=== PATIENT | male | born 1985 | race Caucasian/White ===

== ENCOUNTER 2022-11-24 11:00 | Outpatient (OUT) | payer BC, SELFPAY ==
[2022-11-24 12:08] LABS: Basophils Percent Auto 0.4 % (0.2-2.0); Eosinophils Absolute Auto 0.3 10^3/uL (0.0-0.7); Eosinophils Percent Auto 3.1 % (0.9-7.0); Hematocrit 42.9 % (42.0-54.0); Hemoglobin 14.7 g/dL (14.0-18.0); Immature Granulocytes Abs Auto 0.06 10^3/uL (0.00-0.03); Immature Granulocytes Pct Auto 0.7 % (0.0-0.5); Lymphocytes Absolute Auto 2.8 10^3/uL (1.2-3.8); Lymphocytes Percent Auto 32.8 % (20.5-60.0); Mean Corpuscular HGB Conc 34.3 g/dL (29.9-35.2); Mean Corpuscular Hemoglobin 32.2 pg (25.9-34.0); Mean Corpuscular Volume 93.9 fL (80.0-94.0); Mean Platelet Volume 11.7 fL (9.5-13.5); Monocytes Absolute Auto 0.7 10^3/uL (0.3-0.8); Monocytes Percent Auto 8.3 % (1.7-12.0); Neutrophils Absolute Auto 4.7 10^3/uL (1.4-6.5); Neutrophils Percent Auto 54.7 % (43.0-75.0); Platelet Count 283 10^3/uL (150-450); Red Blood Count 4.57 10^6/uL (4.70-6.10); White Blood Count 8.5 10^3/uL (4.0-11.0)
[2022-11-24 17:58] LABS: Alanine Aminotransferase 78 U/L (16-63); Albumin Globulin Ratio 1.2; Alkaline Phosphatase 40 U/L (46-116); Anion Gap 13.2; Aspartate Amino Transferase 46 U/L (15-37); BUN Creatinine Ratio 20.9; Bilirubin Total 0.7 mg/dL (0.2-1.0); Carbon Dioxide 28.8 mmol/L (21.0-32.0); Chloride 103 mmol/L (98-107); Chol HDL Ratio 4.8; Cholesterol 176 mg/dL (<=200); Estimated GFR (African America >60 (>=60); Estimated GFR (Non-African Ame >60 (>=60); Globulin 3.3 g/dL; Glucose 89 mg/dL (74-106); HDL Cholesterol 37 mg/dL (40-60); Sodium 140 mmol/L (136-145); Total Protein 7.3 g/dL (6.4-8.2); Triglycerides 178 mg/dL (<=150); VLDL CHOLESTEROL 35.6 mg/dL
[2022-11-24 18:00] LABS: Prostate Specific Antigen Scrn 0.42 ng/mL (<=4.00)
[2022-11-25 01:56] LABS: Estimated Average Glucose 111 mg/dL; Glycohemoglobin A1C 5.5 % (4.5-6.2)
== END 2022-11-24 11:01 | disposition home or self-care (01) ==
LOC: LAB 11:00
PROVIDERS: Visit Provider Nurse Practitioner
DX: Z00.00 Encounter for general adult medical examination without abnormal findings (principal); Z12.5 Encounter for screening for malignant neoplasm of prostate; Z23 Encounter for immunization
CPT/HCPCS: 36415; 80053; 80061; 83036; 84443; 85025; 90674; G0008; G0103

== ENCOUNTER 2023-12-10 11:50 | Outpatient (OUT) | payer BC, SELFPAY ==
[2023-12-10 12:55] LABS: Estimated Average Glucose 114 mg/dL; Glycohemoglobin A1C 5.6 % (4.5-6.2)
[2023-12-10 13:03] LABS: Alanine Aminotransferase 73 U/L (16-63); Albumin Globulin Ratio 1.1; Albumin Level 3.7 g/dL (3.4-5.0); Alkaline Phosphatase 43 U/L (46-116); Anion Gap 12.3; Aspartate Amino Transferase 34 U/L (15-37); BUN Creatinine Ratio 23.3; Bilirubin Total 0.8 mg/dL (0.2-1.0); Calcium 9.1 mg/dL (8.5-10.1); Chloride 104 mmol/L (98-107); Chol HDL Ratio 4.9; Cholesterol 201 mg/dL (<=200); Estimated GFR (African America >60 (>=60 mL/min/1.73m^2); Estimated GFR (Non-African Ame >60 (>=60 mL/min/1.73m^2); Globulin 3.4 g/dL; Glucose 95 mg/dL (74-106); HDL Cholesterol 41 mg/dL (40-60); Potassium 4.3 mmol/L (3.5-5.1); Sodium 142 mmol/L (136-145); Thyroid Stimulating Hormone 2.995 uIU/mL (0.358-3.740); Total Protein 7.1 g/dL (6.4-8.2); Triglycerides 183 mg/dL (<=150); VLDL CHOLESTEROL 36.6 mg/dL
[2023-12-10 13:46] LABS: Basophils Absolute Auto 0.1 10^3/uL (0.0-0.1); Basophils Percent Auto 0.6 % (0.2-2.0); Eosinophils Absolute Auto 0.2 10^3/uL (0.0-0.7); Hematocrit 46.6 % (42.0-54.0); Hemoglobin 14.9 g/dL (14.0-18.0); Immature Granulocytes Abs Auto 0.06 10^3/uL (0.00-0.03); Immature Granulocytes Pct Auto 0.7 % (0.0-0.5); Lymphocytes Absolute Auto 3.4 10^3/uL (1.2-3.8); Mean Corpuscular Hemoglobin 30.7 pg (25.9-34.0); Mean Corpuscular Volume 96.1 fL (80.0-94.0); Mean Platelet Volume 11.5 fL (9.5-13.5); Monocytes Absolute Auto 0.7 10^3/uL (0.3-0.8); Monocytes Percent Auto 7.8 % (1.7-12.0); Neutrophils Absolute Auto 4.4 10^3/uL (1.4-6.5); Neutrophils Percent Auto 49.9 % (43.0-75.0); Platelet Count 252 10^3/uL (150-450); Red Blood Count 4.85 10^6/uL (4.70-6.10); Red Cell Distribution Width 13.3 % (11.0-15.0); White Blood Count 8.7 10^3/uL (4.0-11.0)
[2023-12-10 15:57] LABS: Prostate Specific Antigen Scrn 0.56 ng/mL (<=4.00)
== END 2023-12-10 11:51 | disposition home or self-care (01) ==
LOC: LAB 11:50
PROVIDERS: PCP Nurse Practitioner; Visit Provider Nurse Practitioner Family
DX: Z00.00 Encounter for general adult medical examination without abnormal findings (principal); Z23 Encounter for immunization
CPT/HCPCS: 80053; 80061; 83036; 84443; 85025; 90674; G0103

== ENCOUNTER 2024-04-02 18:29 | Emergency (ER) | payer BC, SELFPAY ==
[2024-04-02 18:30] VITALS: BP 154/121; PULSE 93; O2SAT 97; BMI 48.1
--- NOTE | 2024-04-02 18:34 | PC.NURSE ---
uncontrolled bleeding to LLE after scratching a varicose vein
--- NOTE | 2024-04-02 18:39 | ED.EXTPRO1 ---
HPI - Extremity Problem General Chief complaint: Extremity Problem, Nontraumatic Time Seen by Provider: 04/02/24 18:33 Source: patient Mode of arrival: ambulance History of Present Illness HPI Narrative: The patient is coming to the ER after he was picking his left leg and all of a sudden started bleeding, the bleeding was a lot that the patient was brought to us by the EMS, he does not take any blood thinner he denies any concerns Upon arrival the patient bleeding is controlled by the EMS holding pressure and there is a tourniquet was applied just few minutes before arrival Related Data Allergies Allergy/AdvReac Type Severity Reaction Status Date / Time oxymetazoline (From Afrin Allergy Severe Swelling Verified 04/02/24 18:30 (oxymetazoline)) of Lip/Tongue/Throat Review of Systems ROS Status of ROS 10 or more systems reviewed and unremarkable except as noted in history and below Exam Narrative Exam Narrative: Nurses notes and vital signs reviewed and patient is not hypoxic. Left lower extremity The patient have a small almost 1.5 mm ulcer-like area where he apparently was picking himself There is no laceration that is obvious other than that, patient have a tourniquet applied General: Well-appearing and in no apparent distress. Skin: Warm, dry, no pallor noted. No rash. Head: Normocephalic, atraumatic. Neck: Supple, non-tender. Eye: Pupils are equal, round and EOMI. No scleral icterus. Ears, Nose, Mouth, and Throat: TM are clear, no nasal mucosal hypertrophy. Oral mucosa is moist, no posterior oropharynx erythema, uvula is mid-line Cardiovascular: Regular Rate and Rhythm without murmur, gallop or rub. Respiratory: No accessory muscle use or respiratory distress. Lungs are clear to auscultation, no wheezing, rales or rhonchi Chest Wall: no tenderness Back: No midline thoracic or lumbar vertebral tenderness. No CVA tenderness GI: Abdomen is soft, non-distended. Normal bowel sounds. No masses appreciated. Constitutional Vital Signs, click to edit/add: Last Vital Signs Temp 98.1 F 04/02/24 18:40 Pulse 93 H 04/02/24 18:30 Resp 20 04/02/24 18:30 BP 170/67 H 04/02/24 18:40 Pulse Ox 97 04/02/24 18:30 O2 Del Method Room Air 04/02/24 18:30 Course Vital Signs Vital signs: Vital Signs Pulse Rate 93 H 04/02/24 18:30 Respiratory Rate 20 04/02/24 18:30 Blood Pressure 154/121 H 04/02/24 18:30 Pulse Oximetry 97 04/02/24 18:30 Oxygen Delivery Method Room Air 04/02/24 18:30 Temperature 98.1 F 04/02/24 18:40 Pulse Rate 93 H 04/02/24 18:30 Respiratory Rate 20 04/02/24 18:30 Blood Pressure 170/67 H 04/02/24 18:40 Pulse Oximetry 97 04/02/24 18:30 Oxygen Delivery Method Room Air 04/02/24 18:30 MDM - Extremity (Nontraumatic) MDM Narrative Medical decision making narrative: The area was infiltrated with 2 cc of 1% lidocaine with epinephrine after which I applied 2 stitches that are 3-0 Ethilon The bleeding was controlled and the compressive dressing was applied The patient have a good pulse anterior tibial on both feet The patient was instructed about keeping the compression dressing for the next 48 hours The patient will keep his leg elevated when possible and and the stitches need to be removed after 5 to 7 days The patient was offered tetanus booster but he mentioned he does not want to take it and right now since it not wound or laceration I am okay with him getting it from his primary care office The patient is to follow up with primary care physician in next 2-3 days or to return to the emergency department should any of the signs or symptoms worsen or new symptoms develop. The patient agrees with the following Diagnosis and Treatment plan and the patient will be discharged home. Discharge Plan Discharge Chief Complaint: Extremity Problem, Nontraumatic Clinical Impression: Bleeding from varicose vein Time of Disposition Decision: 18:42 Print Language: Gambian Referrals: GENESIS ZABALA [Primary Care Provider] - 1 week
--- OUTSIDE RECORDS SUMMARY | 2024-04-02 18:39 | XMS_ITS | CCD ---
Author Organization [facility] Care Team Providers Care Swimming Coach Name Role Phone WASHINGTON BRANCH Admitting Unavailable WASHINGTON BRANCH Attending Unavailable DR CHANDLER OCONNELL Primary Care Unavailable WASHINGTON BRANCH Consulting Unavailable Leilani Wagner Unavailable LYNNETTE Camarena Attending Provider LYNNETTE Doyle Primary Care Provider [phone] TOM NORTON Attending Unavailable APLINGTOM Attending Unavailable APLINGTOM Attending Unavailable Vj CORPORATE DIRECTOR OF HUMAN RESOURCES-Suzan HERMAN Primary Care Provider VJ, SUZAN L Referring Unavailable VJ, SUZAN L Primary Care Unavailable VJ, SUZAN L Referring Unavailable VJ, SUZAN L Primary Care Unavailable VJ, SUZAN Valladares Referring Unavailable VJ, SUZAN L Primary Care Unavailable VJ, SUZAN L Referring Unavailable VJ, SUZAN L Primary Care Unavailable VJ, SUZAN L Referring Unavailable VJ, SUZAN L Primary Care Unavailable Jomar Woodard Attending Unavailab Jomar Talbert Admitting Unavailab Lore Mccain Primary Care Unavailable Vj, VOLLEYBALL ASSISTANT COACH Suzan Valladares Attending Unavailable Vj, VOLLEYBALL ASSISTANT COACH Suzan Valladares Attending Unavailable Vj, VOLLEYBALL ASSISTANT COACH Suzan Valladares Attending Unavailable Vj, VOLLEYBALL ASSISTANT COACH Suzan Valladares Attending Unavailable Allergies Allergy Classification Reported Allergen(s) Allergy Type Date of Onset Reaction(s) Facility (1 source) No Known Medication Allergies; Translations: [No Known Medication Allergies] Propensity to adverse reactions (disorder) [facility] Repository Medications Current Medications Medication Drug Class(es) Dates Sig (Normalized) Sig (Original) Acetaminophen (1 source) Tylenol Active acetaminophen 500 mg / diphenhydrAMINE hydrochloride 25 mg oral tablet (1 source) Histamine-1 Receptor Antagonist take 2 tablets by mouth once daily as needed for sleep diphenhydrAMINE-acet aminophen (TYLENOL PM) 25-500 mg tablet Indications: insomnia Take 2 tablets by mouth nightly as needed for sleep Indications: difficulty sleeping. Active [id number] 200 actuat albuterol 0.09 mg/actuat metered dose inhaler (1 source) beta2-Adrenergic Agonist Start: 04-14-2022 take 2 puff(s) by inhalation four times daily as needed Albuterol Sulfate HFA 108 (90 Base) MCG/ACT 2 puffs Inhalation 4 times a day prn Mar, Active ascorbic acid 1000 mg oral tablet (1 source) Vitamin C take 2 tablets by mouth in the morning ascorbic acid, vitamin C, (VITAMIN C) 1000 mg tablet Take 2 tablets (2,000 mg total) by mouth in the morning. Active azithromycin 250 mg oral tablet (1 source) Macrolide Antimicrobial Start: 04-14-2022 Azithromycin 250 MG 2 tablet on the first day, then 1 tablet daily for 4 days Orally Once a day for 5 days Mar, Active cholecalciferol, vitamin D3, (D3-2000 ORAL) (1 source) take 1 tablet by mouth in the morning cholecalciferol, vitamin D3, (D3-2000 ORAL) Take 1 tablet by mouth in the morning. Active flaxseed oiL oil (1 source) flaxseed oiL oil 1,000 mg by miscellaneous route in the morning. Active magnesium oxide 500 mg oral tablet (1 source) Start: 07-25-2022 take 1 tablet by mouth in the morning magnesium oxide 500 mg tablet Take 1 tablet (500 mg total) by mouth in the morning. 07/25/2022 Active melatonin 10 mg disintegrating oral tablet (1 source) melatonin 10 mg tablet,disintegratin g Dissolve 10 mg on tongue nightly as needed. Active naproxen sodium 220 mg oral tablet (1 source) Nonsteroidal Anti-inflammatory Drug take 1 tablet by mouth every twelve hours as needed for pain naproxen sodium (ALEVE) 220 mg tablet Take 1 tablet (220 mg total) by mouth every 12 (twelve) hours as needed for pain. Active omega 5-klo-prt-fish oil 300-1,000 mg capsule (1 source) take 300-1000 mg by mouth in the morning omega 0-hex-nog-fish oil 300-1,000 mg capsule Take 1 capsule by mouth in the morning. Active omeprazole 40 mg delayed release oral capsule (2 sources) Proton Pump Inhibitor Start: 08-25-2022 take 1 capsule by mouth once daily omeprazole (PriLOSEC) 40 mg capsule Indications: Gastroesophageal reflux disease, unspecified whether esophagitis present TAKE 1 CAPSULE BY MOUTH EVERY DAY 90 capsule 3 08/25/2022 Active Omeprazole 40 MG Oral for 90 Days Active predniSONE 20 mg oral tablet (1 source) Start: 04-14-2022 take 1 tablet by mouth every twelve hours predniSONE 20 MG 1 tablet Orally 2 times a day for 5 day(s) Mar, Active Problems Active Problems Problem Classification Problem Date Documented Da te Episodic/Chronic Chronic obstructive pulmonary disease and bronchiectasis (1 source) Bronchitis, not specified as acute or chronic Episodic Esophageal disorders (1 source) Gastroesophageal reflux disease without esophagitis; Translations: [Gastro-esophageal reflux disease without esophagitis] Chronic Other connective tissue disease (1 source) Pain in right lower leg; Translations: [Pain in right lower leg] Onset: 4 Episodic Other gastrointestinal disorders (1 source) Irritable bowel syndrome characterized by constipation; Translations: [Irritable bowel syndrome with constipation] Chronic Other gastrointestinal disorders (1 source) Constipation; Translations: [Constipation, unspecified] Episodic Other nutritional; endocrine; and metabolic disorders (1 source) Body mass index 40+ - severely obese; Translations: [Morbid (severe) obesity due to excess calories] Onset: 0 05-12-2019 Chronic Other nutritional; endocrine; and metabolic disorders (1 source) Body mass index (BMI) 50.0-59.9, adult; Translations: [Body mass index (BMI) 50.0-59.9, adult] Onset: 4 Chronic Residual codes; unclassified (1 source) Obstructive sleep apnea syndrome; Translations: [Obstructive sleep apnea (adult) (pediatric)] 02-22-2024 Chronic Residual codes; unclassified (1 source) Obstructive sleep apnea (adult) (pediatric); Translations: [Obstructive sleep apnea (adult) (pediatric)] Onset: 4 Chronic Past or Other Problems Problem Classification Problem Date Documented Da te Episodic/Chronic Abdominal hernia (1 source) Recurrent ventral incisional hernia with obstruction; Translations: [Incisional hernia with obstruction, without gangrene] Onset: 05-12-2019 05-12-2019 Episodic Abdominal pain (2 sources) Abdominal pain; Translations: [Unspecified abdominal pain] Onset: 05-29-2023 Episodic Immunizations and screening for infectious disease (1 source) Contact with and (suspected) exposure to other viral communicable diseases; Translations: [Contact with or exposure to other viral diseases] Onset: 10-31-2020 12-16-2021 Episodic Intestinal obstruction without hernia (2 sources) Small bowel obstruction; Translations: [Unspecified intestinal obstruction, unspecified as to partial versus complete obstruction] Onset: 08-28-2019 08-28-2019 Episodic Mood disorders (1 source) Mood disorders Onset: 12-23-2021 12-23-2021 Other liver diseases (1 source) Abnormal levels of other serum enzymes; Translations: [Abnormal levels of other serum enzymes] Onset: 05-29-2023 Episodic Residual codes; unclassified (1 source) Other specified health status; Translations: [Other specified health status] Onset: 05-29-2023 Episodic Results Test Name Value Interpretation Reference Range Facility Family Medicine Office/Clini c Noteon 12-02-2023 Family Medicine Office/Clinic Note Family Medicine Office/Clinic Note HPI Staff Kike is a 38 year old male presenting with sinus and allergies Onset; Thursday afternoon Headache- yes Earache- no Sinus Congestion- yes Rhinorrhea- no Sore Throat- no the first couple hours in the morning Cough- yes started last night wheezing- no Dyspnea on exertion- no Orthopnea- Trouble laying flat/breathing through nose: yes Lung Hx (asthma, recurring bronchitis/chest colds, COPD)- no Fevers/chills- no Thursday he thinks he was running a fever, never took his temp though GI symptoms- no Mucinex started Thursday morning COVID tested today- History of Present Illness pt presents today with nasal congestion, headache cough Review of Systems PHQ Score Initial Depression Screen Score: 0 SCORE Physical Exam Vitals & Measurements T: 36.8 ?C(Temporal Artery) HR: 88(Peripheral) RR: 20 BP: 138/88 SpO2: 96% HT: 68 in HT: 171.5 cm WT: 172.1 kg WT: 378.62 lb BMI: 58.51 General: alert, no acute distress ENMT: oral mucosa moist, no pharyngeal erythema or exudate, ERIS TM red and full of fluid, sinus tenderness Cardiovascular: regular rate and rhythm, normal peripheral perfusion Respiratory: Lungs CTA, respirations non labored Extremities: no deformity, no trauma Neurological: oriented x 4, LOC appropriate for age, CN II-XII intact, motor strength equal & normal bilaterally, speech normal right calf bruised and tender Assessment/Plan 1. Sinusitis (J32.9: Chronic sinusitis, unspecified) will send augmentin and medrol dose pack. pt encouraged to start taking daily allergy medication will also send in flonase. hoping to get allergies under control to prevent chronic sinus infections Ordered: fluticasone nasal, 1 spray(s), Nasal, BID, 16 gram, Refill(s) 0, each nostril, [facility]/pharmacy #[id number], 171.5, cm, 12/02/23 15:20:00 EDT, Height/Length Dosing, 172.1, kg, 12/02/23 15:20:00 EDT, Weight Dosing 2. Right calf pain (M79.661: Pain in right lower leg) pt had knee surgery a year ago. the other night he stood up and heard a pop in his calf. area is now bruised and tender. doppler u/s order provided. pt will go to [facility] for that. Ordered: amoxicillin-clavulan ate, = 1 tab(s), Oral, q12hr, X 7 day(s), # 14 tab(s), Refills(s) 0, Pharmacy: [facility]/pharmacy #[id number], 171.5, cm, 12/02/23 15:20:00 EDT, Height/Length Dosing, 172.1, kg, 12/02/23 15:20:00 EDT, Weight Dosing benzonatate, 200 mg = 1 cap(s), Oral, TID, X 7 day(s), # 21 cap(s), Refills(s) 0, Pharmacy: [facility]/pharmacy #[id number], 171.5, cm, 12/02/23 15:20:00 EDT, Height/Length Dosing, 172.1, kg, 12/02/23 15:20:00 EDT, Weight Dosing fluticasone nasal, 1 spray(s), Nasal, BID, 16 gram, Refill(s) 0, each nostril, [facility]/pharmacy #[id number], 171.5, cm, 12/02/23 15:20:00 EDT, Height/Length Dosing, 172.1, kg, 12/02/23 15:20:00 EDT, Weight Dosing methylPREDNISolone, = 1 packet(s), Oral, As Directed, as directed on package labeling, X 6 day(s), # 21 tab(s), Refills(s) 0, [id number] 171.5, cm, 12/02/23 15:20:00 EDT, Height/Length Dosing, 172.1, kg, 12/02/23 15:20:00 EDT, Weight Dosing US Lower Extremity Venous Duplex Right 3. Non-smoker (Z78.9: Other specified health status) continue not smoking Ordered: amoxicillin-clavulan ate, = 1 tab(s), Oral, q12hr, X 7 day(s), # 14 tab(s), Refills(s) 0, [id number] 171.5, cm, 12/02/23 15:20:00 EDT, Height/Length Dosing, 172.1, kg, 12/02/23 15:20:00 EDT, Weight Dosing benzonatate, 200 mg = 1 cap(s), Oral, TID, X 7 day(s), # 21 cap(s), Refills(s) 0, Pharmacy: [facility]/pharmacy #[id number], 171.5, cm, 12/02/23 15:20:00 EDT, Height/Length Dosing, 172.1, kg, 12/02/23 15:20:00 EDT, Weight Dosing fluticasone nasal, 1 spray(s), Nasal, BID, 16 gram, Refill(s) 0, each nostril, [facility]/pharmacy #[id number], 171.5, cm, 12/02/23 15:20:00 EDT, Height/Length Dosing, 172.1, kg, 12/02/23 15:20:00 EDT, Weight Dosing methylPREDNISolone, = 1 packet(s), Oral, As Directed, as directed on package labeling, X 6 day(s), # 21 tab(s), Refills(s) 0, [id number] 171.5, cm, 12/02/23 15:20:00 EDT, Height/Length Dosing, 172.1, kg, 12/02/23 15:20:00 EDT, Weight Dosing Rapid COVID POC 87549 US Lower Extremity Venous Duplex Right 4. BMI 50.0-59.9, adult (Z68.43: Body mass index [BMI] 50.0-59.9, adult) BMI education Ordered: amoxicillin-clavulan ate, = 1 tab(s), Oral, q12hr, X 7 day(s), # 14 tab(s), Refills(s) 0, [id number] 171.5, cm, 12/02/23 15:20:00 EDT, Height/Length Dosing, 172.1, kg, 12/02/23 15:20:00 EDT, Weight Dosing benzonatate, 200 mg = 1 cap(s), Oral, TID, X 7 day(s), # 21 cap(s), Refills(s) 0, [id number], 171.5, cm, 12/02/23 15:20:00 EDT, Height/Length Dosing, 172.1, kg, 12/02/23 15:20:00 EDT, Weight Dosing fluticasone nasal, 1 spray(s), Nasal, BID, 16 gram, Refill(s) 0, each nostril, [facility]/pharmacy #[id number], 171.5, cm, 12/02/23 15:20:00 EDT, Height/Length Dosing, 172.1, kg, 12/02/23 15:20:00 EDT, Weight Dosing methylPREDNISolone, = 1 packet(s), Oral, A (more content not included)... Normal [facility] Comment on above: Result Comment: Elec tronically Signed By: Suzan Connelly\.br\Date and Time Signed: 12/02/23 16:39 EDT Family Medicine Office/Clini c Noteon 11-04-2023 Family Medicine Office/Clinic Note Family Medicine Office/Clinic Note Chief Complaint Ongoing cough & Sinus HPI Staff Pt presents today due to ongoing cough & plugged ear for 3wks. _Respiratory C/O: Duration: 2wks Body aches: yes Chest congestion: yes Chills: yes Cough: yes Ear complaints: yes Eye itching/watering: watering Fever: no Headache: yes Nasal congestion: yes Nasal discharge: yes Poor appetite: yes Reduced activity: yes Sinus pain/pressure: yes Sneezing: no Sputum production: yes green Wheezing: no Ill contacts: no Remedies tried: _ _ _ Veronica John Aburto-Desmond & Mucinex. History of Present Illness pt c/o URI symptoms Review of Systems PHQ Score Initial Depression Screen Score: 0 SCORE Physical Exam Vitals & Measurements T: 36.3 ?C(Temporal Artery) HR: 99(Peripheral) RR: 18 BP: 142/94 SpO2: 98% HT: 68 in HT: 171.5 cm WT: 173 kg WT: 380.6 lb BMI: 58.82 General: alert, no acute distress ENMT: oral mucosa moist, no pharyngeal erythema or exudate, ERIS TM and canals red TM bulging with clear fluid Cardiovascular: regular rate and rhythm, normal peripheral perfusion Respiratory: Lungs CTA, respirations non labored Extremities: no deformity, no trauma Neurological: oriented x 4, LOC appropriate for age, CN II-XII intact, motor strength equal & normal bilaterally, speech normal Assessment/Plan 1. Otitis media of both ears (H66.93: Otitis media, unspecified, bilateral) ERIS OM noted on exam, sinus tenderness, cough. will give kenalog in office today. Augmentin and Tessalon pearls sent to pharmacy. RTC as needed 2. BMI 50.0-59.9, adult (Z68.43: Body mass index [BMI] 50.0-59.9, adult) BMI education given Ordered: triamcinolone, 80 mg = 2 mL, Injection, IntraMuscular, Once, Stop date 11/04/23 14:23:00 EDT, Routine, Start date 11/04/23 14:23:00 EDT, 11/04/23 14:23:00 EDT 3. Obesity due to excess calories (E66.09: Other obesity due to excess calories) see above 4. Non-smoker (Z78.9: Other specified health status) continue not smoking Orders: amoxicillin-clavulan ate, = 1 tab(s), Oral, q12hr, X 7 day(s), # 14 tab(s), Refills(s) 0, Pharmacy: [facility]/pharmacy #[id number], 171.5, cm, 11/04/23 13:45:00 EDT, Height/Length Dosing, 173, kg, 11/04/23 13:45:00 EDT, Weight Dosing benzonatate, 200 mg = 1 cap(s), Oral, TID, X 7 day(s), # 21 cap(s), Refills(s) 0, Pharmacy: [facility]/pharmacy #[id number], 171.5, cm, 11/04/23 13:45:00 EDT, Height/Length Dosing, 173, kg, 11/04/23 13:45:00 EDT, Weight Dosing Follow-up No qualifying data available Problem List/Past Medical History Ongoing Abdominal pain Carpal tunnel syndrome, right Cough Elevated liver enzymes History of bowel disorder History of hiatal hernia History of inguinal hernia Loud snoring Otitis media of both ears Right knee pain Sinusitis Sleep disturbance Witnessed apneic spells Historical No qualifying data Procedure/Surgical History Surgery (01/23/2023), Colonoscopy (03/26/2019), Large bowel resection, Repair of diaphragmatic hiatal hernia, Repair of inguinal hernia. Medications Augmentin 875 mg oral tablet, 1 tab(s), Oral, q12hr benzonatate 200 mg oral capsule, 200 mg= 1 cap(s), Oral, TID Fish Oil 1000 mg oral capsule, 1000 mg= 1 cap(s), Oral, BID Flax Seed Oil magnesium oxide 500 mg oral tablet Melatonin, 1 tab, Oral, Once a day (at bedtime) meloxicam 15 mg Tab, 15 mg= 1 tab(s), Oral, Daily, 3 refills omeprazole 40 mg Cap-DR, 40 mg= 1 cap(s), Oral, Daily, 3 refills turmeric 500 mg oral capsule Ubrelvy 100 mg oral tablet, 100 mg= 1 tab(s), Oral, Once Vitamin B12 50 mcg oral tablet, 50 mcg= 1 tab(s), Oral, Daily Vitamin C 1000 mg oral tablet, 2000 mg= 2 tab(s), Oral, Daily Vitamin D3 2000 intl units oral Tab, 50 mcg, Oral, Daily Allergies No Known Medication Allergies Social History Alcohol - Low Risk, 07/25/2022 Current, 1-2 times per month, Household alcohol concerns: No., 07/25/2022 Substance Abuse - Denies Substance Abuse, 07/25/2022 Household substance abuse concerns: No., 07/25/2022 Tobacco - Denies Tobacco Use, 07/25/2022 Never (less than 100 in lifetime) Tobacco Use:. Never Smokeless Tobacco Use:. Household tobacco concerns: No. Yes, 11/04/2023 Family History COPD: Mother and Brother. Diabetes mellitus type 2: Brother. Primary malignant neoplasm of bone: Grandparent. Primary malignant neoplasm of female breast: Sister. Primary malignant neoplasm of lung: Grandparent. Immunizations Vaccine Date Status Comments influenza virus vaccine, inactivated 12/20/2021 Recorded SARS-CoV-2 (COVID-19) mRNA-1273 vaccine 01/23/2021 Recorded 2022-07-24: TPVALL influenza virus vaccine, inactivated 01/09/2021 Recorded SARS-CoV-2 (COVID-19) mRNA-1273 vaccine 07/03/2020 Recorded 2022-07-24: TPVALL SARS-CoV-2 (COVID-19) mRNA-1273 vaccine 06/05/2020 Recorded 2022-07-24: TPVALL influenza virus vaccine, inactivated 03/07/2020 Recorded influenza virus vaccine, inactivated 12/18/2018 Recorded measles/mumps/rubell (more content not included)... [facility] Comment on above: Result Comment: Elec tronically Signed By: Suzan Connelly\.br\Date and Time Signed: 11/04/23 15:03 EDT Pre-Certification Formon Pre-Certification Form [id number] #1.00TIFF [facility] Pre-Certification Formon Pre-Certification Form [id number]# 1.00TIFF [facility] Physician Orderon 06-02-2023 Physician Order [id number] #1.00TIFF [facility] ALT No additional P-5'-P [Ca talytic activity/Vol]on 05-29-2023 ALT [Catalytic activity/Vol] 85 U/L High 0-40 [facility] Comment on above: Performed By: #### 1 744-2, 1919-09 #### [facility] ([id number]) [address] [place] [address] Paula 05-29-2023 AST [Catalytic activity/Vol] 60 U/L High 0-41 [facility] Comment on above: Performed By: #### 1 744-2, 1919-09 #### [facility] ([id number]) [address] [place] [address] Ambulatory Visit Summaryon 0 05-29-2023 Ambulatory Visit Summary KIKE CORTES :1985 Visit Date:05/29/2023 Ambulatory Visit Instructions Your Diagnosis Elevated liver enzymes Abdominal pain Sleep disturbance Loud snoring Witnessed apneic spells BMI 50.0-59.9, adult Non-smoker Your Care Team Attending Physician - Suzan Connelly Primary Care Physician - Suzan Connelly This Is Your Medications List Turmeric (turmeric 500 mg oral capsule) ascorbic acid (Vitamin C 1000 mg oral tablet) cholecalciferol (Vitamin D3 2000 intl units oral Tab) cyanocobalamin (Vitamin B12 50 mcg oral tablet) flax (Flax Seed Oil) magnesium oxide (magnesium oxide 500 mg oral tablet) melatonin (Melatonin) omega-3 polyunsaturated fatty acids (Fish Oil 1000 mg oral capsule) omeprazole (omeprazole 40 mg Cap-DR) omeprazole (omeprazole 40 mg Cap-DR) Procedures Performed Surgery (01/23/2023), Colonoscopy (03/26/2019), Large bowel resection, Repair of diaphragmatic hiatal hernia, Repair of inguinal hernia. Discharge Vitals Heart Rate (Peripheral) 80 Respiratory Rate 18 Blood Pressure 130/86 Height 171.5 cm Height 68 in Weight 175.6 kg Weight 386.32 lb BMI 59.7 Medications What How Much When Instructions Unchanged ascorbic acid (Vitamin C 1000 mg oral tablet) 2 Tablets By Mouth Every day Unchanged cholecalciferol (Vitamin D3 2000 intl units oral Tab) 50 Microgram By Mouth Every day Unchanged cyanocobalamin (Vitamin B12 50 mcg oral tablet) 1 Tablets By Mouth Every day Unchanged flax (Flax Seed Oil) Unchanged magnesium oxide (magnesium oxide 500 mg oral tablet) Unchanged melatonin (Melatonin) 1 tab By Mouth Once a day (at bedtime) 20mg Unchanged omega-3 polyunsaturated fatty acids (Fish Oil 1000 mg oral capsule) 1 Capsules By Mouth 2 times a day Unchanged omeprazole (omeprazole 40 mg Cap-DR) 1 Capsules By Mouth Every day Pickup at [facility]/pharmacy #[id number] Unchanged omeprazole (omeprazole 40 mg Cap-DR) 1 Capsules Every day TAKE 1 CAPSULE BY MOUTH EVERY DAY Unchanged Turmeric (turmeric 500 mg oral capsule) Pharmacy Information [facility]/pharmacy #[id number]: [address], [place] [phone] Allergies No Known Medication Allergies Problems Ongoing - Any problem that you are currently receiving treatment for. Abdominal pain Cough Elevated liver enzymes History of bowel disorder History of hiatal hernia History of inguinal hernia Loud snoring Right knee pain Sinusitis Sleep disturbance Witnessed apneic spells Patient Survey You may receive a survey via text or e-mail asking about your office visit. Please share your experience with us by completing your survey. We appreciate your feedback and thank you for choosing us for your care. Kaci Gracia [facility] Family Medicine Office/Clini c Noteon 05-29-2023 Family Medicine Office/Clinic Note HPI Staff Kike is a 38 year old male presenting for yearly physical labs: 11/24/22 A1c 5.5, PSA 0.42 History of Present Illness pt presents today for follow up . is not due for annual exam until July labs not due till November Review of Systems PHQ Score Initial Depression Screen Score: 0 SCORE Physical Exam Vitals & Measurements HR: 80(Peripheral) RR: 18 BP: 130/86 SpO2: 98% HT: 68 in HT: 171.5 cm WT: 175.6 kg WT: 386.32 lb BMI: 59.7 General: alert, no acute distress ENMT: oral mucosa moist, no pharyngeal erythema or exudate Cardiovascular: regular rate and rhythm, normal peripheral perfusion Respiratory: Lungs CTA, respirations non labored Extremities: no deformity, no trauma Neurological: oriented x 4, LOC appropriate for age, CN II-XII intact, motor strength equal & normal bilaterally, speech normal Assessment/Plan 1. Right knee pain (M25.561: Pain in right knee) pt recently had surgery on right knee. is haivng arthritic pain in both. encouraged him to use biofreeze and meloxicam was ordered. RTC in November/December for wellness visit. labs due in November 2. Carpal tunnel syndrome, right (G56.01: Carpal tunnel syndrome, right upper limb) pt states his hand and fingers somteimes goes numb. encouraged brace and will order meloxicam 3. Elevated liver enzymes (R74.8: Abnormal levels of other serum enzymes) will repeat. order provided will do in [place] Ordered: meloxicam, 15 mg = 1 tab(s), Oral, Daily, # 30 tab(s), Refills(s) 0, Pharmacy: [facility]/pharmacy #[id number], 171.5, cm, 05/29/23 10:06:00 EDT, Height/Length Dosing, 175.6, kg, 05/29/23 10:06:00 EDT, Weight Dosing ALT AST 4. Abdominal pain (R10.9: Unspecified abdominal pain) pt c/o mid to left abdominal pain. liver enzymes were slightly elevated in November Ordered: meloxicam, 15 mg = 1 tab(s), Oral, Daily, # 30 tab(s), Refills(s) 0, Pharmacy: [facility]/pharmacy #[id number], 171.5, cm, 05/29/23 10:06:00 EDT, Height/Length Dosing, 175.6, kg, 05/29/23 10:06:00 EDT, Weight Dosing ALT AST 5. Sleep disturbance (G47.9: Sleep disorder, unspecified) possible sleep apnea will order sleep study. will do at [facility] Ordered: meloxicam, 15 mg = 1 tab(s), Oral, Daily, # 30 tab(s), Refills(s) 0, Pharmacy: [facility]/pharmacy #[id number], 171.5, cm, 05/29/23 10:06:00 EDT, Height/Length Dosing, 175.6, kg, 05/29/23 10:06:00 EDT, Weight Dosing Sleep Study Baseline 6. Loud snoring (R06.83: Snoring) states he snores very loudly Ordered: meloxicam, 15 mg = 1 tab(s), Oral, Daily, # 30 tab(s), Refills(s) 0, Pharmacy: [facility]/pharmacy #[id number], 171.5, cm, 05/29/23 10:06:00 EDT, Height/Length Dosing, 175.6, kg, 05/29/23 10:06:00 EDT, Weight Dosing Sleep Study Baseline 7. Witnessed apneic spells (R06.81: Apnea, not elsewhere classified) states she has to elbow him to start breathing a couple times per night Ordered: meloxicam, 15 mg = 1 tab(s), Oral, Daily, # 30 tab(s), Refills(s) 0, Pharmacy: [facility]/pharmacy #[id number], 171.5, cm, 05/29/23 10:06:00 EDT, Height/Length Dosing, 175.6, kg, 05/29/23 10:06:00 EDT, Weight Dosing Sleep Study Baseline 8. BMI 50.0-59.9, adult (Z68.43: Body mass index [BMI] 50.0-59.9, adult) BMI education complete Ordered: meloxicam, 15 mg = 1 tab(s), Oral, Daily, # 30 tab(s), Refills(s) 0, Pharmacy: [facility]/pharmacy #[id number], 171.5, cm, 05/29/23 10:06:00 EDT, Height/Length Dosing, 175.6, kg, 05/29/23 10:06:00 EDT, Weight Dosing ALT AST Sleep Study Baseline 9. Non-smoker (Z78.9: Other specified health status) continue not smoking Ordered: meloxicam, 15 mg = 1 tab(s), Oral, Daily, # 30 tab(s), Refills(s) 0, Pharmacy: [facility]/pharmacy #[id number], 171.5, cm, 05/29/23 10:06:00 EDT, Height/Length Dosing, 175.6, kg, 05/29/23 10:06:00 EDT, Weight Dosing ALT AST Orders: methylPREDNISolone, = 1 packet(s), Oral, Once, as directed on package labeling, # 21 tab(s), Refills(s) 0, Pharmacy: [facility]/pharmacy #[id number], 171.5, cm, 03/03/23 8:48:00 EST, Height/Length Dosing, 172.1, kg, 03/03/23 8:48:00 EST, Weight Dosing omeprazole, 40 mg = 1 cap(s), Oral, Daily, # 90 cap(s), Refills(s) 3, Pharmacy: [facility]/pharmacy #[id number], 171.5, cm, 05/29/23 10:06:00 EDT, Height/Length Dosing, 175.6, kg, 05/29/23 10:06:00 EDT, Weight Dosing Follow-up No qualifying data available Problem List/Past Medical History Ongoing Abdominal pain Carpal tunnel syndrome, right Cough Elevated liver enzymes History of bowel disorder History of hiatal hernia History of inguinal hernia Loud snoring Right knee pain Sinusitis Sleep disturbance Witnessed apneic spells Historical No qualifying data Procedure/Surgical History Surgery (01/23/2023), Colonoscopy (03/26/2019), Large bowel resection, Repair of diaphragmatic hiatal hernia, Repair of inguinal hernia. Medications Fish Oil 1000 mg oral capsule, 1000 mg= 1 cap(s), Oral, BID Flax Seed Oil magnesium oxide 500 mg oral tablet Melatonin, 1 tab, Oral, Once a day (at bedtime) meloxicam 15 mg Tab, 15 mg= 1 tab(s), Oral, (more content not included)... Normal [facility] Comment on above: Result Comment: Elec tronically Signed By: Suzan Connelly\.br\Date and Time Signed: 05/29/23 13:09 EDT GLUCOSE BLOODon 02-06-2022 Glucose [Mass/Vol] 99 mg/dL Normal 74-106 [facility] Comment on above: Performed By: #### L IPID, GLUC #### [facility] [address] [address] [address] Gin Hunter LIPID PROFILEon 02-06-2022 CHOL-HDL RATIO NORM SEE BELOW Normal [facility] Comment on above: Result Comment: 3.3 - 4.4 LOW RISK 4.4 - 7.1 AVERAGE RISK 7.1 - 11.0 MODERATE RISK >11.0 HIGH RISK Performed By: #### L IPID, GLUC #### [facility] [address] [address] [address] Gin Hunter Cholesterol [Mass/Vol] 189 mg/dL Normal <=200 [facility] Comment on above: Performed By: #### L IPID, GLUC #### [facility] [address] [address] [address] Gin Hunter Cholesterol in HDL [Mass/Vol] 34 mg/dL Critically low 40-60 [facility] Comment on above: Performed By: #### L IPID, GLUC #### [facility] [address] [address] [address] Gin Hunter Cholesterol in LDL [Mass/Vol] 102.0 mg/dL Normal [facility] Comment on above: Performed By: #### L IPID, GLUC #### [facility] [address] [address] [address] Gin Hunter Cholesterol.total/C holesterol in HDL [Mass ratio] 5.6 {ratio} Normal [facility] Comment on above: Performed By: #### L IPID, GLUC #### [facility] [address] [address] [address] Gin Hunter HDL NORMAL > or = 60 mg/dl - LOW CARDIOVASCULAR RISK <40 mg/dl - HIGH CARDIOVASCULAR RISK Normal [facility] Comment on above: Performed By: #### L IPID, GLUC #### [facility] [address] [address] [address] Gin Hunter LDL CALC NORMAL SEE BELOW Normal [facility] Comment on above: Result Comment: <100 mg/dl OPTIMAL 100 - 129 mg/dl NEAR OR ABOVE OPTIMAL 130 - 159 mg/dl BORDERLINE HIGH 160 - 189 mg/dl HIGH >190 mg/dl VERY HIGH Performed By: #### L IPID, GLUC #### [facility] [address] [address] [address] Gin Hunter Triglyceride [Mass/Vol] 265 mg/dL Critically high <=150 [facility] Comment on above: Performed By: #### L IPID, GLUC #### [facility] [address] [address] [address] Gin Hunter VLDL CALC 53.0 mg/dL Normal [facility] Comment on above: Performed By: #### L IPID, GLUC #### [facility] [address] [place], [place] [address] Dr. Gin Hunter [facility] 08-13-2021 Albumin [Mass/Vol] 4.5 g/dL Normal 3.6-5.1 [facility] Comment on above: Performed By: #### 7 600, [id number] #### [facility] of [address], [address] [place] [address] Adjunct Mathematics Instructor: José Miguel Murillo MD Albumin/Globulin [Mass ratio] 2.0 {ratio} Normal 1.0-2.5 [facility] Comment on above: Performed By: #### 7 600, [id number] #### [facility] of [place] [address] Adjunct Mathematics Instructor: José Miguel Murillo MD ALP [Catalytic activity/Vol] 37 U/L Normal 36-130 [facility] Comment on above: Performed By: #### 7 600, 48636 #### [facility] of [address], [address] [place] [address] Adjunct Mathematics Instructor: José Miguel Murillo MD ALT [Catalytic activity/Vol] 49 U/L High 9-46 [facility] Comment on above: Performed By: #### 7 600, 12506 #### [facility] of [place] [address] Adjunct Mathematics Instructor: José Miguel Murillo MD AST [Catalytic activity/Vol] 26 U/L Normal 10-40 [facility] Comment on above: Performed By: #### 7 600, 05345 #### [facility] of [address], [address] [place] [address] Adjunct Mathematics Instructor: José Miguel Murillo MD Bilirubin [Mass/Vol] 0.6 mg/dL Normal 0.2-1.2 [facility] Comment on above: Performed By: #### 7 600, 31910 #### [facility] of [address], [address] [place] [address] Adjunct Mathematics Instructor: José Miguel Murillo MD BUN/CREATININE RATIO NOT APPLICABLE Normal 6-22 [facility] Comment on above: Performed By: #### 7 600, 11610 #### [facility] of [place] [address] Adjunct Mathematics Instructor: José Miguel Murillo MD Calcium [Mass/Vol] 9.3 mg/dL Normal 8.6-10.3 [facility] Comment on above: Performed By: #### 7 600, 85675 #### [facility] of [place] [address] Adjunct Mathematics Instructor: José Miguel Murillo MD Chloride [Moles/Vol] 106 mmol/L Normal 98-110 [facility] Comment on above: Performed By: #### 7 600, 64011 #### [facility] of [place] [address] Adjunct Mathematics Instructor: José Miguel Murillo MD CO2 [Moles/Vol] 26 mmol/L Normal 20-32 [facility] Comment on above: Performed By: #### 7 600, 94706 #### [facility] of [place] [address] Adjunct Mathematics Instructor: José Miguel Murillo MD Creatinine [Mass/Vol] 0.97 mg/dL Normal 0.60-1.35 [facility] Comment on above: Performed By: #### 7 600, 42698 #### [facility] of [place] [address] Adjunct Mathematics Instructor: José Miguel Murillo MD eGFR NON-AFR. [place]IZ[place] 101 mL/min/1.73m2 Normal > OR = 60 [facility] Comment on above: Performed By: #### 7 600, 81723 #### [facility] of [place] [address] Adjunct Mathematics Instructor: José Miguel Murillo MD GFR/1.73 sq M.predicted among blacks MDRD (S/P/Bld) [Vol rate/Area] 117 mL/min/{1.73_m2} Normal > OR = 60 [facility] Comment on above: Performed By: #### 7 600, 30450 #### [facility] of [place] [address] Adjunct Mathematics Instructor: José Miguel Murillo MD Globulin (S) [Mass/Vol] 2.3 g/dL Normal 1.9-3.7 [facility] Comment on above: Performed By: #### 7 600, 97153 #### [facility] of [place] [address] Adjunct Mathematics Instructor: José Miguel Murillo MD Glucose [Mass/Vol] 94 mg/dL Normal 65-99 [facility] Comment on above: Result Comment: Fasting reference interval Performed By: #### 7 600, 95712 #### [facility] of [place] [address] Adjunct Mathematics Instructor: José Miguel Murillo MD Potassium [Moles/Vol] 4.3 mmol/L Normal 3.5-5.3 [facility] Comment on above: Performed By: #### 7 600, 83426 #### [facility] of [place] [address] Adjunct Mathematics Instructor: José Miguel Murillo MD Protein [Mass/Vol] 6.8 g/dL Normal 6.1-8.1 [facility] Comment on above: Performed By: #### 7 600, 32734 #### [facility] of [place] [address] Adjunct Mathematics Instructor: José Miguel Murillo MD Sodium [Moles/Vol] 140 mmol/L Normal 135-146 [facility] Comment on above: Performed By: #### 7 600, 81380 #### [facility] of [place] [address] Adjunct Mathematics Instructor: José Miguel Murillo MD Urea nitrogen [Mass/Vol] 18 mg/dL Normal 7-25 [facility] Comment on above: Performed By: #### 7 600, 64441 #### [facility] of [place] [address] Adjunct Mathematics Instructor: José Miguel Murillo MD LIPID PANEL, [facility] 06- Cholesterol [Mass/Vol] 166 mg/dL Normal <200 [facility] Comment on above: Order Comment: FASTI NG:YES FASTING: YES Performed By: #### 7 600, 22100 #### [facility] [address], [address] [place] [address] Adjunct Mathematics Instructor: José Miguel Murillo MD Cholesterol in HDL [Mass/Vol] 30 mg/dL Low > OR = 40 [facility] Comment on above: Order Comment: FASTI NG:YES FASTING: YES Performed By: #### 7 600, 54903 #### [facility] [address], [address] [place] [address] Adjunct Mathematics Instructor: José Miguel Murillo MD Cholesterol in LDL [Mass/Vol] 95 mg/dL Normal [facility] Comment on above: Order Comment: FASTI NG:YES FASTING: YES Result Comment: Refe rence range: <100 Desirable range <100 mg/dL for primary prevention; <70 mg/dL for patients with CHD or diabetic patients with > or = 2 CHD risk factors. LDL-C is now calculated using the Hollis calculation, which is a validated novel method providing better accuracy than the Friedewald equation in the estimation of LDL-C. Tay SS et al. EMMY. 2013;310(19): 8399-5316 (http://education.SumUp/faq/YRE548) Performed By: #### 7 600, 43485 #### [facility] [address], [address] [place] [address] Adjunct Mathematics Instructor: José Miguel Murillo MD Cholesterol.total/C holesterol in HDL [Mass ratio] 5.5 {ratio} High <5.0 [facility] Comment on above: Order Comment: FASTI NG:YES FASTING: YES Performed By: #### 7 600, 56867 #### [facility] [address], [address] [place] [address] Adjunct Mathematics Instructor: José Miguel Murillo MD NON HDL CHOLESTEROL 136 mg/dL (calc) High <130 [facility] Comment on above: Order Comment: FASTI NG:YES FASTING: YES Result Comment: For patients with diabetes plus 1 major ASCVD risk factor, treating to a non-HDL-C goal of <100 mg/dL (LDL-C of <70 mg/dL) is considered a therapeutic option. Performed By: #### 7 600, 55346 #### [facility] [address] [facility], [address] [place] [address] Adjunct Mathematics Instructor: José Miguel Murillo MD Triglyceride [Mass/Vol] 310 mg/dL High <150 [facility] Comment on above: Order Comment: FASTI NG:YES FASTING: YES Result Comment: If a non-fasting specimen was collected, consider repeat triglyceride testing on a fasting specimen if clinically indicated. Jhon et al. J. of Clin. Lipidol. 2015;9:129-169. Performed By: #### 7 600, 74780 #### [facility] [address] [address] [facility], [address] [place] [address] Adjunct Mathematics Instructor: José Miguel Murillo MD CNOVon 07-08-2019 CNOV Office Visit (GENSAV) KIKE CORTES ([id number]) 1985 M Date Time Provider Department 07/08/19 9:00 AM CHANDLER BAILEY III During your visit today, we recorded the following information about you: Weight Height 148.3 kg 1.778 m Chandler Bailey III, MD 07/08/2019 9:19 AM Signed Mr. Cortes is here today for my opinion regarding large abdominal bulge. He has a reducible bulge of the abdominal wall. The bulge is painful. The pain radiates to back. The pain is worse with heavy lifting and certain activities. The bulge is painful at times. The pain can get to be 8/10. The pain is worse with straining. The pain is better with lying down. He had surgery in 2013 with primary repair of a ventral hernia. The hernia recurred and a 10 x 20 cm mesh was placed. It has recurred again. PAST MEDICAL HISTORY Diagnosis Date - IBS (irritable bowel syndrome) - NEGATIVE HISTORY OF No TB, DM, Heart dis, CA - Obesity PAST SURGICAL HISTORY Procedure Laterality Date - COLONOSCOP W/ OR W/O [facility] SPEC 2018 Colonoscopy - REPAIR EPIGASTRIC HERNIA,REDUC 2013 Hiatal hernia repair - REPAIR INCISIONAL HERNIA,REDUCIBLE 2017 Hernia repair, incisional Social History Tobacco Use - Smoking status: Not on file Substance Use Topics - Alcohol use: Not on file - Drug use: Not on file No family history on file. REVIEW OF SYSTEMS GENERAL: No weight loss, malaise or fevers. HEENT: Negative for frequent or significant headaches, Negative for changes in hearing, vision or dizziness, Negative for nose bleeds, Negative for difficulty swallowing or hoarseness RESPIRATORY: Negative for cough, hemoptysis, wheezing or shortness of breath CARDIOVASCULAR: Negative for chest pain, leg swelling or palpitations. GI: No vomiting, hematochezia, melena, Positive for nausea, changes in bowel habits, and abdominal pain : No history of dysuria, hematuria, frequency or incontinence. SKIN: Negative for lesions, rash, and itching NEURO: No history of headaches, syncope, paralysis, seizures or tremors PHYSICAL EXAMINATION Ht 177.8 cm (5' 10 ) Wt (!) 148.3 kg (327 lb) BMI 46.92 kg/m? General Appearance: Well appearing, alert, in no acute distress, well-hydrated, well nourished., Morbidly obese. Skin: Color, texture, turgor normal, no suspicious rashes or lesions Head: Normocephalic, no masses, lesions, tenderness or abnormalities Neck: Supple, no adenopathy; thyroid symmetric, normal size, no bruits Lungs: Clear to auscultation. No wheezing, rhonchi, rales Heart: RRR without murmur, gallop, or rubs. No ectopy Abdomen: Negative findings: symmetric, no masses palpable and no organomegaly, Positive findings: tenderness mild at midline bulge with loss of abdominal domain Extremities: No deformities, edema, skin discoloration, clubbing or cyanosis. Good capillary refill. Lymph Nodes: No cervical lymphadenopathy and No supraclavicular lymphadenopathy Assessment Morbid obesity Recurrent reducible incisional hernia Plan: Reviewed prior OR reports from outside facility and prior CT reports x 2. Refer to our [facility] [place] [facility] to further discuss separation of the components for repair and instructed he will need significant diet and exercise program to lose weight has his obesity is risk factor for recurrence. Chandler Bailey III, MD Referring Provider: SELF [200] Allergies As of Date: 07/08/2019 (No Known Allergies) Date Reviewed: 07/08/2019 Reviewed by: Britni Abel LPN - Fully Assessed Reason for Visit: Consult [173] Cmt: 2nd opinion abd hernia Primary Visit Diagnosis:Morbid obesity (HCC) [E66.01] Other Visit Diagnosis:Recurrent incisional hernia [K43.2] Order(s):CONSULT TO GENERAL SURGERY [9011] Order #: [id number]: 1 FUTURE Prescriptions as of 07/08/2019 Sig: LUBIPROSTONE 8 MCG CAPSULE Take 8 mcg by mouth. SUCRALFATE 1 GRAM TABLET TAKE 1 TABLET BY MOUTH TWICE * Problem List As Of Date: 07/08/2019 (None) Encounter Status:Closed by CHANDLER BAILEY III, MD on 07/08/19 [facility] HISTORY PHYSICALon 0 HISTORY PHYSICAL HNO ID: [id number] Author: Chandler Bailey III Service: ? Author Type: Physician Type: HANDP Filed: 07/08/2019 9:19 AM Note Text: Mr. Cortes is here today for my opinion regarding large abdominal bulge. He has a reducible bulge of the abdominal wall. The bulge is painful. The pain radiates to back. The pain is worse with heavy lifting and certain activities. The bulge is painful at times. The pain can get to be 8/10. The pain is worse with straining. The pain is better with lying down. He had surgery in 2013 with primary repair of a ventral hernia. The hernia recurred and a 10 x 20 cm mesh was placed. It has recurred again. PAST MEDICAL HISTORY Diagnosis Date - IBS (irritable bowel syndrome) - NEGATIVE HISTORY OF No TB, DM, Heart dis, CA - Obesity PAST SURGICAL HISTORY Procedure Laterality Date - COLONOSCOP W/ OR W/O [facility] SPEC 2018 Colonoscopy - REPAIR EPIGASTRIC HERNIA,REDUC 2013 Hiatal hernia repair - REPAIR INCISIONAL HERNIA,REDUCIBLE 2017 Hernia repair, incisional Social History Tobacco Use - Smoking status: Not on file Substance Use Topics - Alcohol use: Not on file - Drug use: Not on file No family history on file. REVIEW OF SYSTEMS GENERAL: No weight loss, malaise or fevers. HEENT: Negative for frequent or significant headaches, Negative for changes in hearing, vision or dizziness, Negative for nose bleeds, Negative for difficulty swallowing or hoarseness RESPIRATORY: Negative for cough, hemoptysis, wheezing or shortness of breath CARDIOVASCULAR: Negative for chest pain, leg swelling or palpitations. GI: No vomiting, hematochezia, melena, Positive for nausea, changes in bowel habits, and abdominal pain : No history of dysuria, hematuria, frequency or incontinence. SKIN: Negative for lesions, rash, and itching NEURO: No history of headaches, syncope, paralysis, seizures or tremors PHYSICAL EXAMINATION Ht 177.8 cm (5' 10 ) Wt (!) 148.3 kg (327 lb) BMI 46.92 kg/m? General Appearance: Well appearing, alert, in no acute distress, well-hydrated, well nourished., Morbidly obese. Skin: Color, texture, turgor normal, no suspicious rashes or lesions Head: Normocephalic, no masses, lesions, tenderness or abnormalities Neck: Supple, no adenopathy; thyroid symmetric, normal size, no bruits Lungs: Clear to auscultation. No wheezing, rhonchi, rales Heart: RRR without murmur, gallop, or rubs. No ectopy Abdomen: Negative findings: symmetric, no masses palpable and no organomegaly, Positive findings: tenderness mild at midline bulge with loss of abdominal domain Extremities: No deformities, edema, skin discoloration, clubbing or cyanosis. Good capillary refill. Lymph Nodes: No cervical lymphadenopathy and No supraclavicular lymphadenopathy Assessment Morbid obesity Recurrent reducible incisional hernia Plan: Reviewed prior OR reports from outside facility and prior CT reports x 2. Refer to our Main [place] [facility] to further discuss separation of the components for repair and instructed he will need significant diet and exercise program to lose weight has his obesity is risk factor for recurrence. Chandler Bailey III, MD Normal [facility] Vital Signs Date Time Vital Sign Value Performing Clinician Facility 02-22-2024 22:29-0500 Body height 177.[address] 02-22-2024 22:29-0500 Body mass index (BMI) [Ratio] 51.65 kg/m2 [address] 02-22-2024 22:29-0500 Body weight 163.29 kg [place] [facility] 04-14-2022 14:50-0500 Body height 175.26 cm Leilani Wagner Other [facility] Other 04-14-2022 14:50-0500 Body mass index (BMI) [Ratio] 42.82 kg/m2 Leilani Wagner Other [facility] Other 04-14-2022 14:50-0500 Body temperature 97.8 [degF] Leilani Wagner Other [facility] Other 04-14-2022 14:50-0500 Body weight 131.54 kg Leilani Wagner Other [facility] Other 04-14-2022 14:50-0500 Respiratory rate 18 /min Leilani Wagner Other [facility] Other 04-14-2022 14:50-0500 SaO2% (BldA) [Mass fraction] 96 % Leilani Wagner Other [facility] Other Encounters Encounter Date Encounter Type Care Provider Facility Start: 06-13-2024 ambulatory VOLLEYBALL ASSISTANT COACH Suzan L Vj Facil ity:[facility] Start: 03-14-2024 ambulatory Jomar Mcmahon acility:[facility] Start: 02-22-2024 End: 02-22-2024 Clinical Support [place] [facility] Comment on above: Obstructive sleep ap haja Start: 12-07-2023 End: 12-07-2023 ambulatory SUZAN L VJ [facility] Start: 12-02-2023 End: 12-02-2023 ambulatory VOLLEYBALL ASSISTANT COACH Suzan L Vj Facility: [facility] Start: 11-04-2023 End: 11-04-2023 ambulatory VOLLEYBALL ASSISTANT COACH Suzan L Vj Facility:[facility] Adelina ortega Start: 07-13-2023 End: 07-15-2023 ambulatory SUZAN L VJ [facility] Start: 07-08-2023 End: 07-12-2023 ambulatory SUZAN L VJ [facility] Start: 05-29-2023 End: 05-29-2023 ambulatory SUZAN L VJ [facility] Start: 05-29-2023 End: 05-29-2023 ambulatory VOLLEYBALL ASSISTANT COACH Suzan L Vj Facility:[facility] Adelina ortega Start: 02-11-2023 End: 02-11-2023 ambulatory TOM Gilman APLING Not Available Start: 01-21-2023 End: 01-21-2023 ambulatory TOM B APLING Not Available Start: 01-07-2023 End: 01-07-2023 ambulatory TOM B APLING Not Available Start: 12-12-2022 End: 12-12-2022 ambulatory WOUND CARE NURSE-C Suzan Emily Vj Work Phone: [facility] Work Phone: Start: 12-12-2022 End: 12-12-2022 Patient encounter procedure WOUND CARE NURSE-C Suzan Vj Work Phone: [facility] [place] Work Phone: Start: 12-11-2022 End: 12-11-2022 ambulatory WOUND CARE NURSE-C Suzan Emily Vj Work Phone: [facility] Work Phone: Start: 12-11-2022 End: 12-11-2022 Patient encounter procedure WOUND CARE NURSE-C Suzan Vj Work Phone: [facility] [address] Work Phone: Start: 04-14-2022 End: 04-14-2022 ambulatory Leilani Wagner Other [facility] Other Start: 04-14-2022 Office outpatient visit 15 minutes Leilani Wagner [facility] Kalpesh Start: 02-10-2022 Encounter for genera l adult medical examination without abnormal findings WASHINGTONJOSE PECKERLY [facility] Start: 02-06-2022 End: 02-07-2022 ambulatory WASHINGTON BRANCH Facility:[facility] Start: 02-06-2022 End: 02-07-2022 Encounter for general adult medical examination without abnormal findings WASHINGTON PECKERLY Facility:[facility] Procedures Date Procedure Procedure Detail Performing Clinician Start: 12-12-2022 MRI of right knee WOUND CARE NURSE-Lucy Doyle Work Phone: Start: 12-23-2021 Adult depression screening assessment [place] 4 Plan of Treatment Date Care Activity Detail Author Start: 02-21-2025 Adult BMI Screening Adult BMI Screen ing [facility] Start: 07-12-2024 Tobacco Screening Tobacco Screening [facility] Start: 10-25-2023 COVID-19 Vaccine ( season) COVID-19 Vaccine ( season) [facility] Start: 10-25-2023 Influenza vaccination Influenza Vacc ine [facility] Start: 12-23-2022 Depression Screening Depression Scre ening [facility] Start: 2005 DTaP,Tdap and Td Vaccines (1 - Tdap) DTaP,Tdap and Td Vaccines (1 - Tdap) [facility] Start: 2004 Adult BMI Follow Up Plan Adult BMI Follow Up Plan [facility] Immunizations Immunization Date Immunization Notes Care Provider José Antonio carpio 12-20-2021 influenza virus vacc ine, unspecified formulation Pm 4 [facility] 01-09-2021 influenza, injectabl e, quadrivalent, preservative free Pm 4 [facility] 07-03-2020 COVID-19, mRNA, LNP- S, PF, 100mcg/0.5mL Dose [facility] 06-05-2020 COVID-19, mRNA, LNP- S, PF, 100mcg/0.5mL Dose Pm 4 [facility] 03-07-2020 Influenza, injectabl e, Madin Betina Canine Kidney, preservative free, quadrivalent [place] 4 [facility] 12-18-2018 influenza, injectabl e, quadrivalent, preservative free [place] [facility] 05-03-1999 measles, mumps and rubella virus vaccine [place] 4 [facility] Payers Date Payer Category Payer Self-pay [id number] 2021 [employer]aged [employer] - Other ANTH [id number] 1986 Unknown [id number] 2.16840.1.694509.3.579. 2.593 1986 Unknown [id number] 2.16840.1.863578.3.579. 2.9 1986 Unknown [id number] 2.16840.1.326714.3.579. 2.1259 1986 Unknown [id number] 2.16.840.1.366669.3.579. 2.1259 1986 Unknown [id number] 2.16.840.1.310604.3.579. 2.1286 1986 Unknown [id number] 2.16.840.1.444043.3.579. 2.1286 1986 Unknown [id number] 2.16.840.1.138565.3.579. 2.1286 1986 Unknown [id number] 2.16.840.1.081758.3.579. 2.1286 1986 Unknown [id number] 2.16.840.1.339280.3.579. 2.1286 1986 Unknown [id number] 2.16.840.1.406550.3.579. 2.727 1986 Unknown [id number] 2.16.840.1.459173.3.579. 2.727 1986 Unknown [id number] 2.16.840.1.606265.3.579. 2.727 1986 Unknown [id number] 2.16.840.1.539171.3.579. 2.727 1959 Unknown [id number] Unknown [id number] 2.16.840.1.005892.3.579. 2.531 Social History Date Type Detail Facility Unknown if ever smoked [facility] Other Start: 04-05-2020 End: 07-13-2023 Sex Assigned At [facility] Other Start: 1985 Sex Assigned At Male F [facility] Start: 12-23-2021 [facility] Start: 12-23-2021 Tobacco use and exposure Former smokeless tobacco user [facility] History of tobacco use Chews Tobacco [facility] Start: 07-13-2023 Alcoholic beverage intake Ex-drinker (finding) [facility] Start: 04-05-2020 End: 07-13-2023 History of Social function [facility] Adolescent depressio n screening assessment 1 [facility] Start: 12-22-2022 Alcohol Comment [facility] Start: 1985 Sex assigned at Not on file P [facility] Start: 04-18-2019 Sex Male (finding) [facility] Medical Equipment Procedure Code Equipment Code Equipment Origin al Text Equipment Identifier Dates Mesh Pp Pariten Mac [id number] - [id number] , [id number] [facility] Start: 01-31-2020 Goals Date Patient Goal Desired Activity /State Personal health goal Comment on above: Formatting of this n ote might be different from the original. Evaluation of progress towards goal: Plan is to return home with self-care. Evaluation note 04-14-2022 Note Date & Type Note Facility 04-14-2022 Evaluation note Encounter Date Diagnosis Assessment Notes Mar, Bronchitis (ICD-10 - J40) Acute bronchitis material was printed Drink plenty fluids, get plenty of rest. Take the azithromycin and prednisone as prescribed until gone. Use the albuterol inhaler as prescribed as needed for cough or shortness of breath. Follow-up with your family physician if no improvement in 2 to 3 days. Take Tylenol or Motrin as needed for aches pains or fevers [facility] Other Evaluation note Note Date & Type Note Facility Evaluation note No assessment information [facility] Work Phone: Evaluation note Note Date & Type Note Facility Evaluation note Diagnosis Obstructive sleep apnea Obstructive sleep apnea (adult) (pediatric) documented in this encounter [facility] History general Narrative - Reported Note Date & Type Note Facility History general Narrative - Reported Type Medical History IBS Medical History ventral hernias Surgical History KNEE SURGERY-RIGHT Surgical History hernia x2 Hospitalization History eye injury [facility] [employer] Other Instructions Note Date & Type Note Facility Instructions Not on filedocumented in this en counter [facility] Reason for visit Narrative Misc (Routine) - Closed Note Date & Type Note Facility Reason for visit Narrative Specialty Diagnoses / Procedures Referred By Taqueria t Referred To Contact Diagnoses Obstructive sleep apnea Procedures CPAP Suzan Doyle, CORPORATE DIRECTOR OF HUMAN RESOURCES-FISH CUTTING MACHINE OPERATOR Phone: tel: fax: [facility] [address] [place] [address] Phone: tel: Referral ID Status Reason Start Date Expiration Date Visits Re quested Visits Authorized [id number] Closed 08/14/2023 08/13/2024 [facility] Purpose Family History No Family History Records FoundNo Family History Records FoundNo Family History Records FoundNo Family History Records FoundNo Family History Records FoundNo Family History Records FoundNo Family History Records Found Advance Directives No Advanced Directives Records Found Advance Directive Response Recorded Date/ Time Advance Directives No January 23, 2017 1:04pm Date Activated Date Inactivated Comments 01/31/2020 10:28 AM 02/02/2020 6:35 PM Date Activated Date Inactivated Comments 08/28/2019 9:24 PM 08/31/2019 6:49 PM Chief Complaint and Reason for Visit Chief Complaint M23.91 Chief Complaint M23.91 M23.91 Additional Source Comments (unrecognized sect ion and content) No Status Records FoundNo Status Records FoundNo Status Records FoundNo Status Records FoundNo Status Records FoundNo Status Records FoundNo Status Records Found INFORMATION SOURCE (unrecogn ized section and content) DATE CREATED AUTHOR 07/08/2019 [facility] DATE CREATED AUTHOR AUTHOR'S ORGANIZ ATION 08/13/2021 [facility] DATE CREATED AUTHOR AUTHOR'S ORGANIZ ATION 03/04/2022 [facility] DATE CREATED AUTHOR AUTHOR'S ORGANIZ ATION 02/12/2023 [facility] EPIC DATE CREATED AUTHOR AUTHOR'S ORGANIZ ATION 02/24/2024 [facility] DATE CREATED AUTHOR AUTHOR'S ORGANIZ ATION 03/15/2024 [facility] DATE CREATED AUTHOR AUTHOR'S ORGANIZ ATION 03/26/2024 [facility] REASON FOR VISIT (unrecogniz ed section and content) COUGH, CONGESTION Care Teams (unrecognized sec tion and content) Team Status: Active Member Role Status Dates LYNNETTE Lan Primary Care Provider Active Team Status: Inactive Member Role Status Dates LYNNETTE Tran Attending Provider Active LYNNETTE Lan Primary Care Provider Active Team Status: Inactive Member Role Status Dates LYNNETTE Lan Primary Care Provider Active LYNNETTE Tran Attending Provider Active Swimming Coach Relationship Specialty Start Date End Date Suzan Doyle APRN-FISH CUTTING MACHINE OPERATOR PCP - General Nurse Practitioner 07/26/22 Goals (unrecognized section and content) Goals may be documented in a n alternate section FOR RECORDS PERTAINING TO PATIENTS WHO ARE OR HAVE BEEN ENROLLED IN A CHEMICAL DEPENDENCY/SUBSTANCEABUSE PROGRAM, SOME INFORMATION MAY BE OMITTED. This clinical summary was aggregated from multiple sources. Caution should be exercised in using it in the provision of clinical care. This summary normalizes information from multiple sources, and as a consequence, information in this document may materially change the coding, format and clinical context of patient data. In addition, data may be omitted in some cases. CLINICAL DECISIONS SHOULD BE BASED ON THE PRIMARY CLINICAL RECORDS. [employer] [facility]. provides no warranty or guarantee of the accuracy or completeness of information in this document.
[2024-04-02 18:40] VITALS: BP 170/67; TEMP 36.7
[2024-04-02] MEDS: LIDOCAINE HCL 1%-EPINEPHRINE 1:100,000 20 ML MDV INJ (18:44)
[2024-04-02 19:45] VITALS: BP 162/102; PULSE 94; O2SAT 96
== END 2024-04-02 19:43 | disposition home or self-care (01) ==
PROVIDERS: Emergency Provider Emergency Medicine; PCP Nurse Practitioner
DX: I83.892 Varicose veins of left lower extremity with other complications (principal)
CPT/HCPCS: 12001; 99283

== ENCOUNTER 2024-08-26 05:34 | Emergency (ER) | payer BC, SELFPAY ==
[2024-08-26] VITALS (16 sets, daily range): BP systolic 139–147; BP diastolic 89–96; PULSE 64–83; TEMP 36.6; O2SAT 92–100; BMI 46.6
--- OUTSIDE RECORDS SUMMARY | 2024-08-26 05:40 | XMS_ITS | CCD ---
Author Organization [facility] Care Team Providers Care Box Printer Name Role Phone WASHINGTON BRANCH Admitting Unavailable WASHINGTON BRANCH Attending Unavailable ANISH, DR ARTEAGA Primary Care Unavailable WASHINGTON BRANCH Consulting Unavailable Leilani Wagner Unavailable LYNNETTE Camarena Attending Provider LYNNETTE Doyle Primary Care Provider TOM NORTON Attending Unavailable APLINGTOM Attending Unavailable APLTOM ARENAS Attending Unavailable Vj CABLE TESTER-ROOFING APPLICATOR, Suzan Valladares Primary Care Provider VJ, SUZAN Valladares Referring Unavailable VJ, SUZAN Valladares Primary Care Unavailable VJ, SUZAN Valladares Referring Unavailable VJ, SUZAN Valladares Primary Care Unavailable VJ, SUZAN Valladares Referring Unavailable VJ, SUZAN Valladares Primary Care Unavailable VJ, SUZAN Valladares Referring Unavailable VJ, SUZAN Valladares Primary Care Unavailable VJ, SUZAN Valladares Referring Unavailable VJ, SUZAN Valladares Primary Care Unavailable Vj CABLE TESTER-ROOFING APPLICATORSuzan Primary Care Provider VjSuzan Primary Care Physician Vj, Suzan Valladares Attending Unavailable Vj, Suzan Valladares Attending Unavailable Vj, Suzan Valladares Attending Unavailable Vj, Suzan L Admitting Unavailable Vj, Suzan Valladares Attending Unavailable Vj, Suzan Valladares Attending Unavailable Vj, Suzan Valladares Attending Unavailable Vj, LOOM FIXER Suzan Valladares Attending Unavailable Vj, LOOM FIXER Suzan Valladares Admitting Unavailable Jomar Woodard Attending Unavailab Jomar Talbert Admitting Unavailab Lore Mccain Primary Care Unavailable Allergies Allergy Classification Reported Allergen(s) Allergy Type Date of Onset Reaction(s) Facility (1 source) No Known Medication Allergies; Translations: [No Known Medication Allergies] Propensity to adverse reactions (disorder) [facility] Repository Medications Current Medications Medication Drug Class(es) Dates Sig (Normalized) Sig (Original) Acetaminophen (1 source) Tylenol Active acetaminophen 500 mg / diphenhydrAMINE hydrochloride 25 mg oral tablet (4 sources) Histamine-1 Receptor Antagonist take 2 tablets by mouth once daily as needed for sleep diphenhydrAMINE-ac etaminophen (TYLENOL PM) 25-500 mg tablet Indications: insomnia Take 2 tablets by mouth nightly as needed for sleep Indications: difficulty sleeping. Active [id number] 200 actuat albuterol 0.09 mg/actuat metered dose inhaler (1 source) beta2-Adrenergic Agonist Start: 04-14-2022 take 2 puff(s) by inhalation four times daily as needed Albuterol Sulfate HFA 108 (90 Base) MCG/ACT 2 puffs Inhalation 4 times a day prn Mar, Active ascorbic acid 1000 mg oral tablet (4 sources) Vitamin C take 2 tablets by mouth [...] Mar, Active cholecalciferol, vitamin D3, (D3-2000 ORAL) (4 sources) take 1 tablet by mouth in the morning cholecalciferol, vitamin D3, (D3-2000 ORAL) Take 1 tablet by mouth in the morning. Active Fish Oils (1 source) Start: 07-25-2022 take 1 capsule by mouth twice daily Fish Oil 1000 mg oral capsule 1,000 mg = 1 cap(s), Oral, BID, # 60 cap(s), Refills(s) 0 Start Date: 07/25/22 Status: Ordered Quantity: 60.0 Unit: cap(s) Repeat number: 1 Flax Seed Oil (1 source) Start: 07-25-2022 Flax Seed Oil Refill(s) 0 Start Date: 07/25/22 Status: Ordered Repeat number: 1 flaxseed oiL oil (4 sources) flaxseed oiL oil 1,000 mg by miscellaneous route in the morning. Active magnesium oxide 500 mg oral tablet (5 sources) Start: 07-25-2022 take 1 tablet by mouth in the morning magnesium oxide 500 mg tablet Take 1 tablet (500 mg total) by mouth in the morning. 07/25/2022 Active Melatonin (5 sources) Start: 07-25-2022 take 1 tablet by mouth once daily at bedtime Melatonin 1 tab, Oral, Once a day (at bedtime), 20mg, Refills(s) 0 Start Date: 07/25/22 Status: Ordered Repeat number: 1 melatonin 10 mg tablet,disintegrating Dissolve 10 mg on tongue nightly as needed. Active meloxicam 15 mg oral tablet (1 source) Nonsteroidal Anti-inflammatory Drug Start: 06-10-2024 take 1 tablet by mouth once daily meloxicam 15 mg Tab See Instructions, TAKE 1 TABLET BY MOUTH EVERY DAY, # 90 tab(s), Refills(s) 3, Pharmacy: [facility] [id number], 171.5, cm, 04/11/24 15:30:00 EST, Height/Length Dosing, 179.3, kg, 04/11/24 15:30:00 EST, Weight Dosing Start Date: 06/10/24 Status: Ordered Quantity: 90.0 Unit: tab(s) Repeat number: 1 naproxen sodium 220 mg oral tablet (4 sources) Nonsteroidal Anti-inflammatory Drug take 1 tablet by mouth every twelve hours as needed for pain naproxen sodium (ALEVE) 220 mg tablet Take 1 tablet (220 mg total) by mouth every 12 (twelve) hours as needed for pain. Active omega 8-wqe-dwt-fish oil 300-1,000 mg capsule (4 sources) take 300-1000 mg by mouth in the morning omega 9-ssa-gpc-fish oil 300-1,000 mg capsule Take 1 capsule by mouth in the morning. Active omeprazole 40 mg delayed release oral capsule (6 sources) Proton Pump Inhibitor Start: 06-17-2024 take 1 capsule by mouth once daily omeprazole 40 mg Cap-DR See Instructions, TAKE 1 CAPSULE BY MOUTH EVERY DAY, # 90 cap(s), Refills(s) 3, Pharmacy: [facility] [id number], 171.5, cm, 04/11/24 15:30:00 EST, Height/Length Dosing, 179.3, kg, 04/11/24 15:30:00 EST, Weight Dosing Start Date: 06/17/24 Status: Ordered Quantity: 90.0 Unit: cap(s) Repeat number: 1 Start: 08-25-2022 take 1 capsule by mo [facility] once daily omeprazole (PriLOSEC) 40 mg capsule [...] a day for 5 day(s) Mar, Active Vitamin B12 50 mcg oral tablet (1 source) Start: 07-25-2022 take 1 tablet by mouth once daily Vitamin B12 50 mcg oral tablet 50 mcg = 1 tab(s), Oral, Daily, # 30 tab(s), Refills(s) 0 Start Date: 07/25/22 Status: Ordered Quantity: 30.0 Unit: tab(s) Repeat number: 1 Vitamin C 1000 mg oral tablet (1 source) Start: 07-25-2022 take 2 tablets by mouth once daily Vitamin C 1000 mg oral tablet 2,000 mg = 2 tab(s), Oral, Daily, # 90 tab(s), Refills(s) 0 Start Date: 07/25/22 Status: Ordered Quantity: 90.0 Unit: tab(s) Repeat number: 1 Vitamin D3 2000 intl units oral Tab (1 source) Start: 07-25-2022 take 1 tablet by mouth once daily Vitamin D3 2000 intl units oral Tab 50 mcg, Oral, Daily, tab(s), Refills(s) 0 Start Date: 07/25/22 Status: Ordered Repeat number: 1 Problems Active Problems Problem Classification Problem Date Documented Da te Episodic/Chronic Abdominal pain (3 sources) Abdominal pain; Translations: [Unspecified abdominal pain] Onset: 4 05-29-2023 Episodic Chronic obstructive pulmonary disease and bronchiectasis (1 source) Bronchitis, not specified as acute or chronic Episodic Esophageal disorders (1 source) Gastroesophageal reflux disease without esophagitis; Translations: [Gastro-esophageal reflux disease without esophagitis] Chronic Open wounds of extremities (1 source) Laceration of lower limb 04-11-2024 Episodic Other aftercare (1 source) Surgical follow-up 04-11-2024 Episodic Other connective tissue disease (1 source) Pain in right lower leg; Translations: [Pain in right lower leg] Onset: 4 Episodic Other connective tissue disease (1 source) Pain in calf 12-02-2023 Episodic Other gastrointestinal disorders (1 source) Irritable bowel syndrome characterized by constipation; Translations: [Irritable bowel syndrome with constipation] Chronic Other gastrointestinal disorders (1 source) Constipation; Translations: [Constipation, unspecified] Episodic Other gastrointestinal disorders (2 sources) H/O: abdominal hernia 07-25-2022 Episodic Other gastrointestinal disorders (1 source) H/O: gastrointestinal disease 07-25-2022 Episodic Comment on above: Pt states it was nev er confirmed whether it was IBS or UC Other liver diseases (1 source) Elevated liver enzymes level 05-29-2023 Episodic Other lower respiratory disease (1 source) Apnea 05-29-2023 Episodic Other lower respiratory disease (1 source) Cough 03-03-2023 Episodic Other lower respiratory disease (1 source) Snoring 05-29-2023 Episodic Other nervous system disorders (1 source) Carpal tunnel syndrome 05-29-2023 Chronic Other non-traumatic joint disorders (1 source) Knee pain 11-13-2022 Episodic Other nutritional; endocrine; and metabolic disorders (4 sources) Body mass index 40+ - severely obese; Translations: [Morbid (severe) obesity due to excess calories] Onset: 0 05-12-2019 Chronic Other nutritional; endocrine; and metabolic disorders (1 source) Body mass index (BMI) 50.0-59.9, adult; Translations: [Body mass index (BMI) 50.0-59.9, adult] Onset: 4 Chronic Other nutritional; endocrine; and metabolic disorders (1 source) Morbid obesity 04-13-2024 Chronic Other skin disorders (1 source) Skin tag 04-11-2024 Episodic Other upper respiratory infections (1 source) Sinusitis 03-03-2023 Chronic Otitis media and related conditions (1 source) Otitis media 11-04-2023 Episodic Residual codes; unclassified (3 sources) Obstructive sleep apnea syndrome; Translations: [Obstructive sleep apnea (adult) (pediatric)] 02-22-2024 Chronic Residual codes; unclassified (1 source) Obstructive sleep apnea (adult) (pediatric); Translations: [Obstructive sleep apnea (adult) (pediatric)] Onset: 4 Chronic Residual codes; unclassified (1 source) Disturbance in sleep behavior 05-29-2023 Episodic Unclassified (2 sources) Patient encounter status 07-06-2024 Past or Other Problems Problem Classification Problem Date Documented Da te Episodic/Chronic Abdominal hernia (4 sources) Recurrent ventral incisional hernia with obstruction; Translations: [Incisional hernia with obstruction, without gangrene] Onset: 05-12-2019 05-12-2019 Episodic Immunizations and screening for infectious disease (4 sources) Contact with and (suspected) exposure to other viral communicable diseases; Translations: [Contact with or exposure to other viral diseases] Onset: 10-31-2020 12-16-2021 Episodic Intestinal obstruction without hernia (8 sources) Small bowel obstruction; Translations: [Unspecified intestinal obstruction, unspecified as to partial versus complete obstruction] Onset: 08-28-2019 08-28-2019 Episodic Mood disorders (4 sources) Mood disorders Onset: 12-23-2021 12-23-2021 Other liver diseases (1 source) Abnormal levels of other serum enzymes; Translations: [Abnormal levels of other serum enzymes] Onset: 05-29-2023 Episodic Residual codes; unclassified (1 source) Other specified health status; Translations: [Other specified health status] Onset: 05-29-2023 Episodic Results Test Name Value Interpretation Reference Range Facility CBC w/ Auto Diffon 5 Basophils/100 WBC (Bld) 0.4 % Normal 0.0-2.0 [facility] Comment on above: Performed By: #### 2 [id number] #### [facility] [address] [place] [address] Basophils/Leukocytes Auto (Bld) [Pure # fraction] 0.0 E9/L Normal 0.0-0.2 [facility] Comment on above: Performed By: #### 2 [id number] #### [facility] [address] [place] [address] Eosinophils (Bld) [#/Vol] 0.2 E9/L Normal 0.0-0.5 [facility] Comment on above: Performed By: #### 2 [id number] #### [facility] [address] [place] [address] Eosinophils/100 WBC (Bld) 2.6 % Normal 0.0-8.0 [facility] Comment on above: Performed By: #### 2 [id number] #### [facility] [address] [place] [address] Erythrocyte distribution width (RBC) [Ratio] 13.8 % Normal 10.9-14.2 [facility] Comment on above: Performed By: #### 2 [id number] #### [facility] [address] [place] [address] Hematocrit (Bld) [Volume fraction] 42.3 % Normal 37.7-49.0 [facility] Comment on above: Performed By: #### 2 [id number] #### [facility] [address] [place] [address] Hemoglobin (Bld) [Mass/Vol] 14.4 g/dL Normal 13.5-17.5 [facility] Comment on above: Performed By: #### 2 [id number] #### [facility] [address] [place] [address] Lymphocytes (Bld) [#/Vol] 1.8 E9/L Normal 1.0-4.0 [facility] Comment on above: Performed By: #### 2 [id number] #### [facility] [address] [place] [address] Lymphocytes/100 WBC (Bld) 21.2 % Normal 14.0-50.0 [facility] Comment on above: Performed By: #### 2 [id number] #### [facility] [address] [place] [address] MCH (RBC) [Entitic mass] 30.5 pg Normal 27.0-34.0 [facility] Comment on above: Performed By: #### 2 [id number] #### [facility] [address] [place] [address] MCHC (RBC) [Mass/Vol] 34.0 g/dL Normal 31.4-36.0 [facility] Comment on above: Performed By: #### 2 [id number] #### [facility] [address] [place] [address] MCV (RBC) [Entitic vol] 89.7 fL Normal 80.0-100.0 [facility] Comment on above: Performed By: #### 2 [id number] #### [facility] [address] [place] [address] Monocytes (Bld) [#/Vol] 0.6 E9/L Normal 0.2-1.0 [facility] Comment on above: Performed By: #### 2 [id number] #### [facility] [address] [place] [address] Neutrophils (Bld) [#/Vol] 5.8 E9/L Normal 2.0-7.5 [facility] Comment on above: Performed By: #### 2 [id number] #### [facility] [address] [place] [address] Neutrophils/100 WBC (Bld) 69.0 % Normal 36.0-75.0 [facility] Comment on above: Performed By: #### 2 [id number] #### [facility] [address] [place] [address] Platelet mean volume (Bld) [Entitic vol] 10.6 fL Normal 6.4-10.8 [facility] Comment on above: Performed By: #### 2 [id number] #### [facility] [address] [place] [address] Platelets (Bld) [#/Vol] 220.0 E9/L Normal 150.0-500.0 [facility] Comment on above: Performed By: #### 2 [id number] #### [facility] [address] [place] [address] RBC (Bld) [#/Vol] 4.7 E12/L Normal 4.3-5.9 [facility] Comment on above: Performed By: #### 2 [id number] #### [facility] [address] [place] [address] WBC corrected for nucl RBC Auto (Bld) [#/Vol] 8.4 E9/L Normal 4.0-11.0 [facility] Comment on above: Performed By: #### 2 [id number] #### [facility] [address] [place] [address] CHEMISTRYOrdered By: SYSTEM SYSTEM on 07-06-2024 25-hydroxyvitamin D3 [Mass/Vol] 18.3 ng/mL Low 30.0 - 100.0 ng/mL [facility] Albumin [Mass/Vol] 4.6 g/dL Normal 3.3 - 5.0 gm/dL [facility] Albumin/Globulin [Mass ratio] 1.8 {ratio} Normal 1.1 - 2.2 [facility] ALP [Catalytic activity/Vol] 42 [iU]/d Normal 21 - 98 Int._Unit/L [facility] ALT No additional P-5'-P [Catalytic activity/Vol] 66 [iU]/d High 6 - 46 Int._Unit/L [facility] Anion gap [Moles/Vol] 12 mmol/L Normal 6 - 16 mEq/L R [facility] AST [Catalytic activity/Vol] 38 [iU]/d Normal 5 - 43 Int._Unit/L [facility] Bilirubin [Mass/Vol] 0.6 mg/dL Normal 0.0 - 1 .1 mg/dL [facility] Calcium [Mass/Vol] 9.4 mg/dL Normal 8.9 - 11. 1 mg/dL [facility] Chloride [Moles/Vol] 106 mmol/L Normal 101 - 1 11 mmol/L [facility] Cholesterol [Mass/Vol] 168 mg/dL Normal 120 - 200 mg/dL [facility] Cholesterol in HDL [Mass/Vol] 31 mg/dL Invalid Interpretation Code [facility] Comment on above: Result Comment: '>= 60 LOW RISK' '<= 40 HIGH RISK' Cholesterol in LDL [Mass/Vol] 106 mg/dL Normal <=129mg/dL [facility] Cholesterol in VLDL [Mass/Vol] 61 mg/dL High 7 - 40 mg/dL [facility] CO2 [Moles/Vol] 25 mmol/L Normal 21 - 31 mmol/L [facility] Cobalamin (Vitamin B12) [Mass/Vol] 665 pg/mL Normal 50 - 1500 pg/mL [facility] Creatinine [Mass/Vol] 0.9 mg/dL Normal 0.5 - 1.3 mg/dL [facility] eGFR 112 mL/min/1.73 m2 Normal >=59mL/mi n/1. 73 m2 [facility] Globulin (S) [Mass/Vol] 2.5 g/dL Normal 1.4 - 4.0 gm/dL [facility] Glucose [Mass/Vol] 116 mg/dL Normal 55 - 199 mg/dL [facility] Magnesium [Mass/Vol] 1.8 mg/dL Normal 1.3 - 2 .4 mg/dL [facility] Potassium [Moles/Vol] 3.7 mmol/L Normal 3.5 - 5.3 mmol/L [facility] Protein [Mass/Vol] 7.1 g/dL Normal 6.0 - 7.8 gm/dL [facility] Sodium [Moles/Vol] 139 mmol/L Normal 135 - 145 mmol/L [facility] Triglyceride [Mass/Vol] 305 mg/dL High <=149mg/dL [facility] TSH Qn 1.74 m[IU]/L Normal 0.34 - 5.60 mcIU/mL [facility] Urea nitrogen [Mass/Vol] 20 mg/dL Normal 5 - 21 mg/dL [facility] Urea nitrogen/Creatinine [Mass ratio] 22 mg/mg High 10 - 20 [facility] CMPon 07-06-2024 Albumin [Mass/Vol] 4.6 g/dL Normal 3.3-5.0 [facility] Comment on above: Performed By: #### 2 [id number] #### [facility] [address] [place] [address] Albumin/Globulin (S) [Mass conc ratio] 1.8 Normal 1.1-2.2 [facility] Comment on above: Performed By: #### 2 [id number] #### [facility] [address] [place] [address] ALP [Catalytic activity/Vol] 42 Int._Unit/L Normal 21-98 [facility] Comment on above: Performed By: #### 2 [id number] #### [facility] [address] [place] [address] ALT No additional P-5'-P [Catalytic activity/Vol] 66 Int._Unit/L High 6-46 [facility] Comment on above: Performed By: #### 2 [id number] #### [facility] [address] [place] [address] Anion gap [Moles/Vol] 12 mmol/L Normal 6-16 [facility] Comment on above: Performed By: #### 2 [id number] #### [facility] [address] [place] [address] AST [Catalytic activity/Vol] 38 Int._Unit/L Normal 5-43 [facility] Comment on above: Performed By: #### 2 [id number] #### [facility] [address] [place] [address] Bilirubin [Mass/Vol] 0.6 mg/dL Normal 0.0-1.1 [facility] Comment on above: Performed By: #### 2 [id number] #### [facility] [address] [place] [address] Calcium [Mass/Vol] 9.4 mg/dL Normal 8.9-11.1 [facility] Comment on above: Performed By: #### 2 [id number] #### [facility] [address] [place] [address] Chloride [Moles/Vol] 106 mmol/L Normal 101-111 [facility] Comment on above: Performed By: #### 2 [id number] #### [facility] [address] [place] [address] CO2 [Moles/Vol] 25 mmol/L Normal 21-31 [facility] Comment on above: Performed By: #### 2 066539 #### [facility] [address] [place] [address] Creatinine [Mass/Vol] 0.9 mg/dL Normal 0.5-1.3 [facility] Comment on above: Performed By: #### 2 [id number] #### [facility] [address] [place] [address] Globulin (S) [Mass/Vol] 2.5 g/dL Normal 1.4-4.0 [facility] Comment on above: Performed By: #### 2 [id number] #### [facility] [address] [place] [address] Glucose [Mass/Vol] 116 mg/dL Normal 55-199 [facility] Comment on above: Performed By: #### 2 [id number] #### [facility] [address] [place] [address] Potassium [Moles/Vol] 3.7 mmol/L Normal 3.5-5.3 [facility] Comment on above: Performed By: #### 2 [id number] #### [facility] [address] [place] [address] Protein [Mass/Vol] 7.1 g/dL Normal 6.0-7.8 [facility] Comment on above: Performed By: #### 2 [id number] #### [facility] [address] [place] [address] Sodium [Moles/Vol] 139 mmol/L Normal 135-145 [facility] Comment on above: Performed By: #### 2 769659 #### [facility] [address] [place] [address] Urea nitrogen [Mass/Vol] 20 mg/dL Normal 5-21 [facility] Comment on above: Performed By: #### 2 [id number] #### [facility] [address] [place] [address] Urea nitrogen/Creatinine [Mass ratio] 22 No Units High 10-20 [facility] Comment on above: Performed By: #### 2 [id number] #### [facility] [address] [place] [address] Family Medicine Office/Clini c Noteon 07-06-2024 Family Medicine Office/Clinic Note Family Medicine Office/Clinic Note HPI Staff Stokes is a 39 year old male presenting for physical Health Maintenance: Last Labs: 11/24/22 History of Present Illness pt presents today for wellness visit Review of Systems PHQ Score Initial Depression Screen Score: 1 SCORE Physical Exam Vitals & Measurements T: 36.4 ???C(Oral) HR: 88(Peripheral) RR: 20 BP: 132/86 SpO2: 99% HT: 68 in HT: 171.5 cm WT: 394.407 lb WT: 178.9 kg BMI: 60.82 General: alert, no acute distress ENMT: oral mucosa moist, no pharyngeal erythema or exudate Cardiovascular: regular rate and rhythm, normal peripheral perfusion Respiratory: Lungs CTA, respirations non labored Extremities: no deformity, no trauma Neurological: oriented x 4, LOC appropriate for age, CN II-XII intact, motor strength equal & normal bilaterally, speech normal Assessment/Plan 1. Wellness examination (Z00.00: Encounter for general adult medical examination without abnormal findings) pt presents today for wellness exam. due for labs. pt denies needs. does not need refills. RTC 6 months Ordered: CBC w/ Auto Diff Comprehensive Metabolic Panel Est Preventative 18 to 39 years [address] Lipid Panel Magnesium Level Thyroid Stimulating Hormone Vitamin B12 Level Vitamin D 25 Hydroxy 2. Screening for hyperlipidemia (Z13.220: Encounter for screening for lipoid disorders) lipid panel drawn Ordered: CBC w/ Auto Diff Comprehensive Metabolic Panel Est Preventative 18 to 39 years [address] Lipid Panel Magnesium Level Thyroid Stimulating Hormone Vitamin B12 Level Vitamin D 25 Hydroxy 3. Right calf pain (M79.661: Pain in right lower leg) pt still c/o right calf pain. U/S was negative for DVT. pt states almost every night at 2:30am he gets a pain in right calf. will check labs today. he walks on a treadmill 2 miles daily and towards the end of it, he will get a stabbing pain in the same place. will check some labs today Ordered: Est Preventative 18 to 39 years [address] Magnesium Level Vitamin B12 Level Vitamin D 25 Hydroxy 4. Non-smoker (Z78.9: Other specified health status) continue not smoking Ordered: Est Preventative 18 to 39 years [address] Magnesium Level Vitamin B12 Level Vitamin D 25 Hydroxy 5. Adult BMI 60.0-69.9 kg/sq m, (Z68.44: Body mass index [BMI] 60.0-69.9, adult)Body mass index [BMI] 60.0-69.9, adult BMI education Ordered: Est Preventative 18 to 39 years [address] Magnesium Level Vitamin B12 Level Vitamin D 25 Hydroxy 6. Class 3 severe obesity due to excess calories with body mass index (BMI) of 60.0 to 69.9 in adult (E66.813: Obesity, class 3) see above Ordered: Est Preventative 18 to 39 years [address] Magnesium Level Vitamin B12 Level Vitamin D 25 Hydroxy Morbid (severe) obesity due to excess calories (E66.01: Morbid (severe) obesity due to excess calories) see above Orders: fluticasone nasal, See Instructions, 48 Unspecified/Unknown , Refill(s) 1, INSTILL 1 SPRAY IN TO EACH NOSTRIL TWICE A DAY, [id number], 171.5, cm, 12/02/23 15:20:00 EDT, Height/Length Dosing, 172.1, kg, 12/02/23 15:20:00 EDT, Weight Dosing ubrogepant, 100 mg = 1 tab(s), Oral, Once, may repeat dose in 2 hours if needed, # 6 tab(s), Refills(s) 0, Pharmacy: [facility]/pharmacy #[id number], 171.5, cm, 05/29/23 10:06:00 EDT, Height/Length Dosing, 175.6, kg, 05/29/23 10:06:00 EDT, Weight Dosing Follow-up No qualifying data available Problem List/Past Medical History Ongoing Abdominal pain BMI 60.0-69.9, adult Carpal tunnel syndrome, right Cough Elevated liver enzymes Encounter for removal of sutures History of bowel disorder History of hiatal hernia History of inguinal hernia Leg laceration Loud snoring Morbid obesity with BMI of 60.0-69.9, adult Otitis media of both ears Right calf pain Right knee pain Screening for hyperlipidemia Sinusitis Skin tag Sleep disturbance Wellness examination Witnessed apneic spells Historical No qualifying data Procedure/Surgical History Surgery (01/23/2023), Colonoscopy (03/26/2019), Large bowel resection, Repair of diaphragmatic hiatal hernia, Repair of inguinal hernia. Medications Fish Oil 1000 mg oral capsule, 1000 mg= 1 cap(s), Oral, BID Flax Seed Oil magnesium oxide 500 mg oral tablet Melatonin, 1 tab, Oral, Once a day (at bedtime) meloxicam 15 mg Tab, See Instructions omeprazole 40 mg Cap-DR, See Instructions Vitamin B12 50 mcg oral tablet, 50 mcg= 1 tab(s), Oral, Daily Vitamin C 1000 mg oral tablet, 2000 mg= 2 tab(s), Oral, Daily Vitamin D3 2000 intl units oral Tab, 50 mcg, Oral, Daily Allergies No Known Medication Allergies Social History Alcohol - Low Risk, 07/25/2022 Current. 1-2 times per month., 2024 Substance Abuse - Denies Substance Abuse, 07/25/2022 Never., 04/11/2024 Tobacco - Denies Tobacco Use, 07/25/2022 Never (less than 100 in lifetime) Tobacco Use:., 07/06/2024 Family History COPD: Mother and Brother. Diabetes mellit (more content not included)... Normal [facility] Comment on above: Result Comment: Elec tronically Signed By: Vj DRIVER, Suzan Valladares\.br\Date and Time Signed: 07/06/24 13:48 EDT HEMATOLOGYOrdered By: SYSTEM SYSTEM on 07-06-2024 Basophils/100 WBC (Bld) 0.4 % Normal 0.0 - 2.0 % Remisol Heme Basophils/Leukocytes Auto (Bld) [Pure # fraction] 0.0 E9/L Normal 0.0 - 0.2 E9/L [facility] Eosinophils (Bld) [#/Vol] 0.2 E9/L Normal 0.0 - 0.5 E9/L [facility] Eosinophils/100 WBC (Bld) 2.6 % Normal 0.0 - 8.0 % [facility] Erythrocyte distribution width (RBC) [Ratio] 13.8 % Normal 10.9 - 14.2 % [facility] Hematocrit (Bld) [Volume fraction] 42.3 % Normal 37.7 - 49.0 % [facility] Hemoglobin (Bld) [Mass/Vol] 14.4 g/dL Normal 13.5 - 17.5 gm/dL [facility] Lymphocytes (Bld) [#/Vol] 1.8 E9/L Normal 1.0 - 4.0 E9/L [facility] Lymphocytes/100 WBC (Bld) 21.2 % Normal 14.0 - 50.0 % [facility]e MCH (RBC) [Entitic mass] 30.5 pg Normal 27.0 - 34.0 pg Remisol Heme MCHC (RBC) [Mass/Vol] 34.0 g/dL Normal 31.4 - 36.0 gm/dL [facility] MCV (RBC) [Entitic vol] 89.7 fL Normal 80.0 - 100.0 fL [facility] Monocytes (Bld) [#/Vol] 0.6 E9/L Normal 0.2 - 1.0 E9/L [facility]e Monocytes/100 WBC (Bld) 6.8 % Normal 4.0 - 14.0 % [facility] Neutrophils (Bld) [#/Vol] 5.8 E9/L Normal 2.0 - 7.5 E9/L [facility] Neutrophils/100 WBC (Bld) 69.0 % Normal 36.0 - 75.0 % [facility] Platelet mean volume (Bld) [Entitic vol] 10.6 fL Normal 6.4 - 10.8 fL [facility]e Platelets (Bld) [#/Vol] 220.0 E9/L Normal 150.0 - 500.0 E9/L [facility] Heme RBC (Bld) [#/Vol] 4.7 E12/L Normal 4.3 - 5.9 E12/L [facility] WBC corrected for nucl RBC Auto (Bld) [#/Vol] 8.4 E9/L Normal 4.0 - 11.0 E9/L [facility] Heme Lipid Panelon 07-06-2024 Cholesterol [Mass/Vol] 168 mg/dL Normal 120-200 [facility] Comment on above: Performed By: #### 2 [id number] #### [facility] [address] [place] [address] Cholesterol in HDL [Mass/Vol] 31 mg/dL Invalid Interpretation Code [facility] Comment on above: Result Comment: '>= 60 LOW RISK' '<= 40 HIGH RISK' Performed By: #### 2 [id number] #### [facility] [address] [place] [address] Cholesterol in LDL [Mass/Vol] 106 mg/dL Normal <=129 [facility] Comment on above: Performed By: #### 2 [id number] #### [facility] [address] [place] [address] Cholesterol in VLDL [Mass/Vol] 61 mg/dL High 7-40 [facility] Comment on above: Performed By: #### 2 [id number] #### [facility] [address] [place] [address] Triglyceride [Mass/Vol] 305 mg/dL High <=149 [facility] Comment on above: Performed By: #### 2 [id number] #### [facility] [address] [place] [address] Magnesiumon 07-06-2024 Magnesium [Mass/Vol] 1.8 mg/dL Normal 1.3-2.4 [facility] Comment on above: Performed By: #### 2 [id number] #### [facility] [address] [place] [address] TSHon 07-06-2024 TSH Qn 1.74 m[IU]/L Normal 0.34-5.60 [facility] Comment on above: Performed By: #### 2 [id number] #### [facility] [address] [place] [address] Vit B12on 07-06-2024 Cobalamin (Vitamin B12) [Mass/Vol] 665 pg/mL Normal 50-1500 [facility] Comment on above: Performed By: #### 2 [id number] #### [facility] [address] [place] [address] Vitamin D 25 Hydroxyon 07-06 25-hydroxyvitamin D3 [Mass/Vol] 18.3 ng/mL Low 30.0-100.0 [facility] Comment on above: Performed By: #### 5 [id number] #### [facility] [address] [place] [address] eGFRon 07-06-2024 eGFR 112 mL/min/1.73 m2 Normal >=59 [facility] Comment on above: Performed By: #### 1 [id number] #### [facility] [address] [place] [address] Family Medicine Office/Clini c Noteon 04-13-2024 Family Medicine Office/Clinic Note Family Medicine Office/Clinic Note [facility] Staff Kike is a 38 year old male presenting for suture removal Pt has sutures to left leg that needs removed, 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 History of Present Illness pt presents today to have sutures removed Review of Systems PHQ Score Initial Depression Screen Score: 0 SCORE Physical Exam Vitals & Measurements HR: 76(Peripheral) RR: 18 BP: 124/84 SpO2: 96% HT: 68 in HT: 171.5 cm WT: 179.3 kg WT: 395.288 lb BMI: 60.96 General: alert, no acute distress ENMT: oral mucosa moist, no pharyngeal erythema or exudate Cardiovascular: regular rate and rhythm, normal peripheral perfusion Respiratory: Lungs CTA, respirations non labored Extremities: no deformity, no trauma Neurological: oriented x 4, LOC appropriate for age, CN II-XII intact, motor strength equal & normal bilaterally, speech normal Procedure time out complete. base of skin tag was injected with 1/2 ml of 1% lidocaine. area was cleansed with betadine. pick ups were used to hold skin tag and small scissors were used to cut skin tag off. pt tolerated well. pressure dressing was applied. after care instructions discussed. Assessment/Plan 1. Encounter for removal of sutures (Z48.02: Encounter for removal of sutures) 2 sutures removed without difficulty bandaid applied Ordered: E&M of Est. Patient Low 20-29 Min 08586 Remove skin tags 15 or less 82635 2. Leg laceration (S81.819A: Laceration without foreign body, unspecified lower leg, initial encounter) pt had small laceration where a varicose vein ruptured and required 2 sutures Ordered: E&M of Est. Patient Low 20-29 Min 43580 Remove skin tags 15 or less 86197 3. Skin tag (L91.8: Other hypertrophic disorders of the skin) skin tag back of neck removed without difficulty. see procedure note for details. Ordered: E&M of Est. Patient Low 20-29 Min 47448 Remove skin tags 15 or less 27455 4. BMI 60.0-69.9, adult (Z68.44: Body mass index [BMI] 60.0-69.9, adult) bmi education given Follow-up No qualifying data available Problem List/Past Medical History Ongoing Abdominal pain BMI 60.0-69.9, adult Carpal tunnel syndrome, right Cough Elevated liver enzymes Encounter for removal of sutures History of bowel disorder History of hiatal hernia History of inguinal hernia Leg laceration Loud snoring Otitis media of both ears Right calf pain Right knee pain Sinusitis Skin tag Sleep disturbance Witnessed apneic spells Historical No qualifying data Procedure/Surgical History Surgery (01/23/2023), Colonoscopy (03/26/2019), Large bowel resection, Repair of diaphragmatic hiatal hernia, Repair of inguinal hernia. Medications Fish Oil 1000 mg oral capsule, 1000 mg= 1 cap(s), Oral, BID Flax Seed Oil Flonase 0.05 mg/inh [place], See Instructions magnesium oxide 500 mg oral tablet Melatonin, [...] Social History Alcohol - Low Risk, 07/25/2022 Current. 1-2 times per month., 2024 Substance Abuse - Denies Substance Abuse, 07/25/2022 Never., 04/11/2024 Tobacco - Denies Tobacco Use, 07/25/2022 Never (less than 100 in lifetime) Tobacco Use:., 2024 Family History COPD: Mother and Brother. Diabetes [...] Recorded influenza virus vaccine, inactivated 12/18/2018 Recorded measles/mumps/rubel la virus vaccine 05/03/1999 Recorded Normal [facility] Comment on above: Result Comment: Elec tronically Signed By: Suzan Connelly\.br\Date and Time Signed: 04/13/24 12:45 EST Ambulatory Visit Summaryon 0 04-11-2024 Ambulatory Visit Summary Ambulatory Visit Summary KIKE CORTES :1985 Visit Date:04/11/2024 Ambulatory Visit Instructions Your Diagnosis Encounter for removal of sutures Leg laceration Your Care Team Attending Physician - Suzan Connelly Primary Care Physician - Suzan Connelly This Is Your Medications List Turmeric (turmeric 500 mg oral capsule) ascorbic acid (Vitamin C 1000 mg oral tablet) cholecalciferol (Vitamin D3 2000 intl units oral Tab) cyanocobalamin (Vitamin B12 50 mcg oral tablet) flax (Flax Seed Oil) fluticasone nasal (Flonase 0.05 mg/inh [place]) magnesium oxide (magnesium oxide 500 mg oral tablet) melatonin (Melatonin) meloxicam (meloxicam 15 mg Tab) omega-3 polyunsaturated fatty acids (Fish Oil 1000 mg oral capsule) omeprazole (omeprazole 40 mg Cap-DR) ubrogepant (Ubrelvy 100 mg oral tablet) Procedures Performed Surgery (01/23/2023), Colonoscopy (03/26/2019), Large bowel resection, Repair of diaphragmatic hiatal hernia, Repair of inguinal hernia. Discharge Vitals Heart Rate (Peripheral) 76 Respiratory Rate 18 Blood Pressure 124/84 Height 171.5 cm Height 68 in Weight 179.3 kg Weight 395.288 lb BMI 60.96 What to do next Scheduled Follow-Up Appointments Thursday 8:40 AM EDT With: Suzan Connelly Where: [facility] [address] [address]- Medications What How Much When Why Instructions Unchanged ascorbic acid (Vitamin C 1000 mg oral tablet) 2 Tablets By Mouth Every day Unchanged cholecalciferol (Vitamin D3 2000 intl units oral Tab) 50 Microgram By Mouth Every day Unchanged cyanocobalamin (Vitamin B12 50 mcg oral tablet) 1 Tablets By Mouth Every day Unchanged flax (Flax Seed Oil) Unchanged fluticasone nasal (Flonase 0.05 mg/ inh [place]) See instructions INSTILL 1 SPRAY IN TO EACH NOSTRIL TWICE A DAY Unchanged magnesium oxide (magnesium oxide 500 mg oral tablet) Unchanged melatonin (Melatonin) 1 tab By Mouth Once a day (at bedtime) 20mg Unchanged meloxicam (meloxicam 15 mg Tab) 1 Tablets By Mouth Every day Elevated liver enzymes Abdominal pain Sleep disturbance Loud snoring Witnessed apneic spells BMI 50.0-59.9, adult Non-smoker Unchanged omega-3 polyunsaturated fatty acids (Fish Oil 1000 mg oral capsule) 1 Capsules By Mouth 2 times a day Unchanged omeprazole (omeprazole 40 mg Cap-DR) 1 Capsules By Mouth Every day Unchanged Turmeric (turmeric 500 mg oral capsule) Unchanged ubrogepant (Ubrelvy 100 mg oral tablet) 1 Tablets By Mouth Once may repeat dose in 2 hours if needed Allergies No Known Medication Allergies Problems Ongoing - Any problem that you are currently receiving treatment for. Abdominal pain Carpal tunnel syndrome, right Cough Elevated liver enzymes Encounter for removal of sutures History of bowel disorder History of hiatal hernia History of inguinal hernia Leg laceration Loud snoring Otitis media of both ears Right calf pain Right knee pain Sinusitis Sleep disturbance Witnessed apneic spells Patient Survey You may receive a survey via text or e-mail asking about your office visit. Please share your experience with us by completing your survey. We appreciate your feedback and thank you for choosing us for your care. Normal [facility] Family Medicine Office/Clini c Noteon 12-02-2023 Family [...] BID, 16 gram, Refill(s) 0, each nostril, [id number], 171.5, cm, 12/02/23 15:20:00 EDT, Height/Length Dosing, 172.1, kg, 12/02/23 15:20:00 EDT, Weight Dosing 2. Right calf pain (M79.661: Pain in right lower leg) pt had knee surgery a year ago. the other night he stood up and heard a pop in his calf. area is now bruised and tender. doppler u/s order provided. pt will go to [facility] for that. Ordered: amoxicillin-clavula wilma, = 1 tab(s), Oral, q12hr, X 7 day(s), # 14 tab(s), Refills(s) 0, [id number] 171.5, cm, 12/02/23 15:20:00 EDT, Height/Length Dosing, 172.1, kg, 12/02/23 15:20:00 EDT, Weight Dosing benzonatate, 200 mg = 1 cap(s), Oral, TID, X 7 day(s), # 21 cap(s), Refills(s) 0, [id number], 171.5, cm, 12/02/23 15:20:00 EDT, Height/Length Dosing, 172.1, kg, 12/02/23 15:20:00 EDT, Weight Dosing fluticasone nasal, 1 spray(s), Nasal, BID, 16 gram, Refill(s) 0, each nostril[facility], 171.5, cm, 12/02/23 15:20:00 EDT, Height/Length Dosing, 172.1, kg, 12/02/23 15:20:00 EDT, Weight Dosing methylPREDNISolone, = 1 packet(s), Oral, As Directed, as directed on package labeling, X 6 day(s), # 21 tab(s), Refills(s) 0, Pharmacy: [id number], 171.5, cm, 12/02/23 15:20:00 EDT, Height/Length Dosing, 172.1, kg, 12/02/23 15:20:00 EDT, Weight Dosing US Lower Extremity Venous Duplex Right 3. Non-smoker (Z78.9: Other specified health status) continue not smoking Ordered: amoxicillin-clavula wilma, = 1 tab(s), Oral, q12hr, X 7 day(s), # 14 tab(s), Refills(s) 0, [id number], 171.5, cm, 12/02/23 15:20:00 EDT, Height/Length Dosing, 172.1, kg, 12/02/23 15:20:00 EDT, Weight Dosing benzonatate, 200 mg = 1 cap(s), Oral, TID, X 7 day(s), # 21 cap(s), Refills(s) 0, Pharmacy: [id number], 171.5, cm, 12/02/23 15:20:00 EDT, Height/Length Dosing, 172.1, kg, 12/02/23 15:20:00 EDT, Weight Dosing fluticasone nasal, 1 spray(s), Nasal, BID, 16 gram, Refill(s) 0, each nostril, [facility], 171.5, cm, 12/02/23 15:20:00 EDT, Height/Length Dosing, 172.1, kg, 12/02/23 15:20:00 EDT, Weight Dosing methylPREDNISolone, = 1 packet(s), Oral, As Directed, as directed on package labeling, X 6 day(s), # 21 tab(s), Refills(s) 0, [id number], 171.5, cm, 12/02/23 15:20:00 EDT, Height/Length Dosing, 172.1, kg, 12/02/23 15:20:00 EDT, Weight Dosing Rapid COVID POC 41219 Lower Extremity Venous Duplex Right 4. BMI 50.0-59.9, adult (Z68.43: Body mass index [BMI] 50.0-59.9, adult) BMI education Ordered: amoxicillin-clavula wilma, = 1 tab(s), Oral, q12hr, X 7 day(s), # 14 tab(s), Refills(s) 0, [id number], 171.5, cm, 12/02/23 15:20:00 EDT, Height/Length Dosing, 172.1, kg, 12/02/23 15:20:00 EDT, Weight Dosing benzonatate, 200 mg = 1 cap(s), Oral, TID, X 7 day(s), # 21 cap(s), Refills(s) 0, [id number], 171.5, cm, 12/02/23 15:20:00 EDT, Height/Length Dosing, 172.1, kg, 12/02/23 15:20:00 EDT, Weight Dosing fluticasone nasal, 1 spray(s), Nasal, BID, 16 gram, Refill(s) 0, each nostril, [facility], 171.5, cm, 12/02/23 15:20:00 EDT, Height/Length Dosing, 172.1, kg, 12/02/23 15:20:00 EDT, Weight Dosing methylPREDNISolone, = 1 packet(s), Oral, A (more content not included)... Normal [facility] Comment on above: Result Comment: Elec [...] no Remedies tried: _ _ _ [facility] Mucinex. History of Present Illness pt [...] specified health status) continue not smoking Orders: amoxicillin-clavula wilma, = 1 tab(s), Oral, q12hr, X 7 day(s), # 14 tab(s), Refills(s) 0, Pharmacy: [id number], 171.5, cm, 11/04/23 13:45:00 EDT, Height/Length Dosing, 173, kg, 11/04/23 13:45:00 EDT, Weight Dosing benzonatate, 200 mg = 1 cap(s), Oral, TID, X 7 day(s), # 21 cap(s), Refills(s) 0, Pharmacy: [facility], 171.5, cm, 11/04/23 13:45:00 EDT, [...] Recorded influenza virus vaccine, inactivated 12/18/2018 Recorded measles/mumps/rubel l (more content not included)... Normal [facility] Comment on above: Result Comment: Elec tronically Signed By: Suzan Connelly\Date and Time Signed: 11/04/23 15:03 EDT Pre-Certification Formon Pre-Certification Form [id number] DC#[id number] Normal [facility] ALT No additional P-5'-P [Ca talytic activity/Vol]on 05-29-2023 ALT [Catalytic activity/Vol] 85 U/L High 0-40 [facility] Comment on above: Performed By: #### 1 744-2, 1919-09 #### [facility] ([id number]) [address] [place] [address], [address] [place] [address] Paula 05-29-2023 AST [Catalytic activity/Vol] 60 U/L High 0-41 [facility] Comment on above: Performed By: #### 1 744-2, 1919-09 #### [facility] ([id number]) [address] [place] [address], [address] [place] [address] GLUCOSE BLOODon 02-06-2022 Glucose [Mass/Vol] 99 mg/dL Normal 74-106 [facility] Comment on above: Performed By: #### L IPID, GLUC #### [facility] [address] [place] [address] Dr. Gin Hunter LIPID PROFILEon 02-06-2022 CHOL-HDL RATIO NORM SEE BELOW Normal [facility] Comment on above: Result Comment: 3.3 - 4.4 LOW RISK 4.4 - 7.1 AVERAGE RISK 7.1 - 11.0 MODERATE RISK >11.0 HIGH RISK Performed By: #### L IPID, GLUC #### [facility] [address] [place] [address] [address] Gin Hunter Cholesterol [Mass/Vol] 189 mg/dL Normal <=200 [facility] Comment on above: Performed By: #### L IPID, GLUC #### [facility] [address] [address] [address] Gin Hunter Cholesterol in HDL [Mass/Vol] 34 mg/dL Critically low 40-60 [facility] Comment on above: Performed By: #### L IPID, GLUC #### [facility] [address] [address] [address] Gin Hunter Cholesterol in LDL [Mass/Vol] 102.0 mg/dL Normal [facility] Comment on above: Performed By: #### L IPID, GLUC #### [facility] [address] [address] [address] Gin Hunter Cholesterol.total/Cho lesterol in HDL [Mass ratio] 5.6 {ratio} Normal [facility] Comment on above: Performed By: #### L IPID, GLUC #### [facility] [address] [place] [address] Dr. Gin Hunter HDL NORMAL > or = 60 mg/dl - LOW CARDIOVASCULAR RISK <40 mg/dl - HIGH CARDIOVASCULAR RISK Normal [facility] Comment on above: Performed By: #### L IPID, GLUC #### [facility] [address] [address] [address] Gin Hunter LDL CALC NORMAL SEE BELOW Normal [facility] Comment on above: Result Comment: <100 mg/dl OPTIMAL 100 - 129 mg/dl NEAR OR ABOVE OPTIMAL 130 - 159 mg/dl BORDERLINE HIGH 160 - 189 mg/dl HIGH >190 mg/dl VERY HIGH Performed By: #### L IPID, GLUC #### [facility] [address] [address] [address] Gin Hunter Triglyceride [Mass/Vol] 265 mg/dL Critically high <=150 [facility] Comment on above: Performed By: #### L IPID, GLUC #### [facility] [address] [address] [address] Gin Hunter VLDL CALC 53.0 mg/dL Normal [facility] Comment on above: Performed By: #### L IPID, GLUC #### [facility] [address] [place] [address] Dr. Gin Hunter COMPREHENSIVE METABOLIC PANE David 08-13-2021 Albumin [Mass/Vol] 4.5 g/dL Normal 3.6-5.1 [facility] Comment on above: Performed By: #### 7 600, 84711 #### [facility] [address], [address] [place] [address] County Auditor: José Miguel Murillo MD Albumin/Globulin [Mass ratio] 2.0 {ratio} Normal 1.0-2.5 [facility] Comment on above: Performed By: #### 7 600, 46204 #### [facility] [address], [address] [place] [address] County Auditor: José Miguel Murillo MD ALP [Catalytic activity/Vol] 37 U/L Normal 36-130 [facility] Comment on above: Performed By: #### 7 600, 97740 #### [facility] [address], [address] [place] [address] County Auditor: José Miguel Murillo MD ALT [Catalytic activity/Vol] 49 U/L High 9-46 [facility] Comment on above: Performed By: #### 7 600, 44227 #### [facility] [address], [address] [place] [address] County Auditor: José Miguel Murillo MD AST [Catalytic activity/Vol] 26 U/L Normal 10-40 [facility] Comment on above: Performed By: #### 7 600, 74514 #### [facility] of [place] [address] County Auditor: José Miguel Murillo MD Bilirubin [Mass/Vol] 0.6 mg/dL Normal 0.2-1.2 [facility] Comment on above: Performed By: #### 7 600, 48583 #### [facility] [address], [address] [place] [address] County Auditor: José Miguel Murillo MD BUN/CREATININE RATIO NOT APPLICABLE Normal 6-22 [facility] Comment on above: Performed By: #### 7 600, 52356 #### [facility] [address], [address] [place] [address] County Auditor: José Miguel Murillo MD Calcium [Mass/Vol] 9.3 mg/dL Normal 8.6-10.3 [facility] Comment on above: Performed By: #### 7 600, 47269 #### [facility] of [place] [address] County Auditor: José Miguel Murillo MD Chloride [Moles/Vol] 106 mmol/L Normal 98-110 [facility] Comment on above: Performed By: #### 7 600, 99736 #### [facility] of [place] [address] County Auditor: José Miguel Murillo MD CO2 [Moles/Vol] 26 mmol/L Normal 20-32 [facility] Comment on above: Performed By: #### 7 600, 24229 #### [facility] [place] [address] County Auditor: José Miguel Murillo MD Creatinine [Mass/Vol] 0.97 mg/dL Normal 0.60-1.[address] [facility] Comment on above: Performed By: #### 7 600, 33117 #### [facility] [place] [address] County Auditor: José Miguel Murillo MD eGFR NON-AFR. BRITISH 101 mL/min/1.73m2 Normal > OR = 60 [facility] Comment on above: Performed By: #### 7 600, 38466 #### [facility] [place] [address] County Auditor: José Miguel Murillo MD GFR/1.73 sq M.predicted among blacks MDRD (S/P/Bld) [Vol rate/Area] 117 mL/min/{1.73_m2} Normal > OR = 60 [facility] Comment on above: Performed By: #### 7 600, 20158 #### [facility] of [place] [address] County Auditor: José Miguel Murillo MD Globulin (S) [Mass/Vol] 2.3 g/dL Normal 1.9-3.7 [facility] Comment on above: Performed By: #### 7 600, 51468 #### [facility] [address], [address] [place] [address] County Auditor: José Miguel Murillo MD Glucose [Mass/Vol] 94 mg/dL Normal 65-99 [facility] Comment on above: Result Comment: Fasting reference interval Performed By: #### 7 600, 65105 #### [facility] [address], [address] [place] [address] County Auditor: José Miguel Murillo MD Potassium [Moles/Vol] 4.3 mmol/L Normal 3.5-5.[address] [facility] Comment on above: Performed By: #### 7 600, 93620 #### [facility] [address], [address] [place] [address] County Auditor: José Miguel Murillo MD Protein [Mass/Vol] 6.8 g/dL Normal 6.1-8.1 [facility] Comment on above: Performed By: #### 7 600, 47515 #### [facility] [address], [address] [place] [address] County Auditor: José Miguel Murillo MD Sodium [Moles/Vol] 140 mmol/L Normal 135-146 [facility] Comment on above: Performed By: #### 7 600, 52846 #### [facility] of [place] [address] County Auditor: José Miguel Murillo MD Urea nitrogen [Mass/Vol] 18 mg/dL Normal 7-25 [facility] Comment on above: Performed By: #### 7 600, 49113 #### [facility] of [place] [address] County Auditor: José Miguel Murillo MD LIPID PANEL, [facility] 07-25 Cholesterol [Mass/Vol] 166 mg/dL Normal <200 [facility] Comment on above: Order Comment: FASTI NG:YES FASTING: YES Performed By: #### 7 600, 75274 #### [facility] [address], [address] [place] [address] County Auditor: José Miguel Murillo MD Cholesterol in HDL [Mass/Vol] 30 mg/dL Low > OR = 40 [facility] Comment on above: Order Comment: FASTI NG:YES FASTING: YES Performed By: #### 7 600, 36916 #### [facility] [address], [address] [place] [address] County Auditor: José Miguel Murillo MD Cholesterol in LDL [...] equation in the estimation of LDL-C. Tay ELLINGTON et al. EMMY. 2013;310(19): 8496-0984 (http://education.HauteDay.MerchMe/faq/HXT365) Performed By: #### 7 600, 58861 #### [facility] [address], [address] [place] [address] County Auditor: José Miguel Murillo MD Cholesterol.total/Cho lesterol in HDL [Mass ratio] 5.5 {ratio} High <5.0 [facility] Comment on above: Order Comment: FASTI NG:YES FASTING: YES Performed By: #### 7 600, 80034 #### [facility] [address], [address] [place] [address] County Auditor: José Miguel Murillo MD NON HDL CHOLESTEROL 136 mg/dL (calc) High <130 [facility] Comment on above: Order Comment: FASTI NG:YES FASTING: YES Result Comment: For patients with diabetes plus 1 major ASCVD risk factor, treating to a non-HDL-C goal of <100 mg/dL (LDL-C of <70 mg/dL) is considered a therapeutic option. Performed By: #### 7 600, 74604 #### [facility] [address], [address] [place] [address] County Auditor: José Miguel Murillo MD Triglyceride [Mass/Vol] 310 mg/dL High <150 [facility] Comment on above: Order Comment: FASTI NG:YES FASTING: YES Result Comment: If a non-fasting specimen was collected, consider repeat triglyceride testing on a fasting specimen if clinically indicated. Jhon et al. J. of Clin. Lipidol. 2015;9:129-169. Performed By: #### [id number], [id number] #### [facility] [address] [place] [address], [address] [place] [address] County Auditor: José Miguel PEDROZAon 07-08-2019 CNOV Office Visit (GENSAV) ---- KIKE CORTES Loren ([id number]) 1985 M Date Time Provider Department 07/08/19 [...] Laterality Date - COLONOSCOP W/ OR W/O [facility] SPEC 2018 Colonoscopy - REPAIR EPIGASTRIC HERNIA,REDUC [...] reports x 2. Refer to our [facility] [place] [facility] to further discuss separation of [...] Order(s):CONSULT TO GENERAL SURGERY [9011] Order #: [id number]: 1 FUTURE Prescriptions as of 07/08/2019 Sig: LUBIPROSTONE 8 MCG CAPSULE Take 8 mcg by mouth. SUCRALFATE 1 GRAM TABLET TAKE 1 TABLET BY MOUTH TWICE * Problem List As Of Date: 07/08/2019 (None) Encounter Status:Closed by CHANDLER BAILEY III, MD on 07/08/19 Normal [facility] HISTORY PHYSICALon 0 HISTORY PHYSICAL HNO ID: [id number] Author: Chandler Bailey III Service: ? Author [...] Laterality Date - COLONOSCOP W/ OR W/O [facility] SPEC 2018 Colonoscopy - REPAIR EPIGASTRIC HERNIA,REDUC 2013 Hiatal hernia repair - REPAIR INCISIONAL HERNIA,REDUCIBLE 2016 Hernia repair, incisional Social History Tobacco Use [...] reports x 2. Refer to our Main [place] [facility] to further discuss separation of the components for repair and instructed he will need significant diet and exercise program to lose weight has his obesity is risk factor for recurrence. Chandler Bailey III, MD Normal [facility] Vital Signs Date Time Vital Sign Value Performing Clinician Facility 02-22-2024 22:29-0500 Body height 177.8 cm [facility] 4 [facility] 02-22-2024 22:29-0500 Body mass index (BMI) [Ratio] 51.65 kg/m2 [facility] 4 [facility] 02-22-2024 22:29-0500 Body weight 163.29 kg [facility] 4 [facility] 07-13-2023 19:37-0400 Body height 179.1 cm [facility] 1 [facility] 07-13-2023 19:37-0400 Body mass index (BMI) [Ratio] 48.1 kg/m2 [facility] 1 [facility] 07-13-2023 19:37-0400 Body weight 154.22 kg [facility] 1 [facility] 07-08-2023 13:50-0400 Body height 179.1 cm [facility] 1 [facility] 07-08-2023 13:50-0400 Body mass index (BMI) [Ratio] 48.1 kg/m2 [facility] 1 [facility] 07-08-2023 13:50-0400 Body weight 154.22 kg P[facility] 1 [facility] 04-14-2022 14:50-0500 Body height 175.26 cm Leilani Diamondmond Other [facility] Other 04-14-2022 14:50-0500 Body mass index (BMI) [Ratio] 42.82 kg/m2 Leilani Diamondmond Other [facility] Other 04-14-2022 14:50-0500 Body temperature 97.8 [degF] Leilani Diamondmond Other [facility] Other 04-14-2022 14:50-0500 Body weight 131.54 kg Leilani Wagner Other [facility] Other 04-14-2022 14:50-0500 Respiratory rate 18 /min Leilani Diamondmond Other [facility] Other 04-14-2022 14:50-0500 SaO2% (BldA) [Mass fraction] 96 % Leilani Diamondmond Other [facility] Other Encounters Encounter Date Encounter Type Care Provider Facility Start: 07-20-2024 ambulatory Jomar Mcmahon acility:[facility] Start: 07-06-2024 End: 07-06-2024 Lab Drop off Suzan Doyle [facility] Start: 07-06-2024 End: 07-06-2024 ambulatory Suzan L Vj Facility: [facility] Start: 06-13-2024 End: 06-13-2024 ambulatory Suzan L Vj Facility: [facility] Start: 04-11-2024 End: 04-11-2024 ambulatory Suzan L Vj Facility:[facility] Adelina ortega Start: 02-22-2024 End: 02-22-2024 Clinical Support [facility] Sleep [facility] 4 [facility] Comment on above: Obstructive sleep ap haja Start: 12-07-2023 End: 12-07-2023 ambulatory SUZAN L VJ [facility] Start: 12-02-2023 End: 12-02-2023 ambulatory Suzan L Vj Facility:[facility] Adelina ortega Start: 11-04-2023 End: 11-04-2023 ambulatory Suzan L Vj Facility:[facility] Adelina ortega Start: 08-14-2023 End: 08-14-2023 Telephone encounter Suzan L Vj CABLE TESTER-ROOFING APPLICATOR Work Phone: [facility] Comment on above: Sleep Lab (CPAP) Start: 07-13-2023 End: 07-13-2023 Clinical Support [facility] Sleep Unit 1 [facility] Comment on above: Obstructive sleep ap haja Start: 07-13-2023 End: 07-15-2023 ambulatory SUZAN L VJ [facility] Start: 07-08-2023 End: 07-08-2023 Clinical Support [facility] Sleep Unit 1 [facility] Comment on above: Obstructive sleep ap haja Start: 07-08-2023 End: 07-12-2023 ambulatory SUZAN L VJ [facility] Start: 05-29-2023 End: 05-29-2023 ambulatory SUZAN L VJ [facility] Start: 02-11-2023 End: 02-11-2023 ambulatory TOM B APLING Not Available Start: 01-21-2023 End: 01-21-2023 ambulatory TOM Gilman APLING Not Available Start: 01-07-2023 End: 01-07-2023 ambulatory TOM Gilman APLING Not Available Start: 12-12-2022 End: 12-12-2022 ambulatory PARKING LOT SUPERVISOR-C Suzan Diaz Vj Work Phone: [facility] Work Phone: Start: 12-12-2022 End: 12-12-2022 Patient encounter procedure PARKING LOT SUPERVISOR-C Suzan Vj Work Phone: [facility] [place] Work Phone: Start: 12-11-2022 End: 12-11-2022 ambulatory PARKING LOT SUPERVISOR-C Suzan Ferrelln Vj Work Phone: [facility] Work Phone: Start: 12-11-2022 End: 12-11-2022 Patient encounter procedure PARKING LOT SUPERVISOR-C Suzan Vj Work Phone: [facility] [address] Work Phone: Start: 04-14-2022 End: 04-14-2022 ambulatory Leilani Wagner Other [place] [employer] Other Start: 04-14-2022 Office outpatient visit 15 minutes Leilani Wagner [facility] Start: 02-10-2022 Encounter for genera l adult medical examination without abnormal findings [facility] BRANCH [facility] Start: 02-06-2022 End: 02-07-2022 ambulatory [place] BRANCH Facility:[facility] Start: 02-06-2022 End: 02-07-2022 Encounter for general adult medical examination without abnormal findings [place] BRANCH Facility:[facility] Procedures Date Procedure Procedure Detail Performing Clinician Start: 01-23-2023 Surgical procedure Suzan Vj Start: 12-12-2022 MRI of right knee PARKING LOT SUPERVISOR-C Suzan Vj Work Phone: Start: 12-23-2021 Adult depression scr eening assessment [facility] 1 Start: 03-26-2019 Colonoscopy Suzan Hall b Comment on above: Dr. Thornton Esophageal hiatus he rnia repair Suzan Doyle Large intestine excision Tara Doyle Repair of inguinal hernia Muna Espinoza Plan of Treatment Date Care Activity Detail Author Start: 02-21-2025 Adult BMI Screening Adult BMI Screen ing [facility] Start: 07-12-2024 Adult BMI Screening Adult BMI Screen ing [facility] Start: 07-12-2024 Tobacco Screening Tobacco Screening [facility] Start: 07-07-2024 Adult BMI Screening Adult BMI Screen ing [facility] Start: 02-05-2024 End: 02-05-2024 Clinical Support 02/05/2024 8:00 PM EST Clinical Support [facility] [address] [place] [id number] [facility] Start: 01-01-2024 Adult BMI Screening Adult BMI Screen ing [facility] Start: 01-01-2024 Tobacco Screening Tobacco Screening [facility] Start: 10-25-2023 COVID-19 Vaccine ( season) COVID-19 Vaccine ( season) [facility] Start: 10-25-2023 Influenza vaccination Influenza Vacc ine [facility] Start: 12-23-2022 Depression Screening Depression Scre ening [facility] Start: 10-24-2022 COVID-19 Vaccine ( season) COVID-19 Vaccine ( season) [facility] Start: 2005 DTaP,Tdap and Td Vaccines (1 - Tdap) DTaP,Tdap and Td Vaccines ( - Tdap) [facility] Start: 2004 Adult BMI Follow Up Plan Adult BMI Follow Up Plan [facility] Immunizations Immunization Date Immunization Notes Care Provider José Antonio carpio 12-20-2021 influenza virus vaccine, unspecified formulation P[facility] 1 [facility] 01-23-2021 SARS-CoV-2 (COVID-19 ) mRNA-1273 vaccine Suzan Vj [facility] Comment on above: Result Comment: 2022: TPVALL 01-09-2021 influenza virus vaccine, unspecified formulation Suzan Vj [facility] 01-09-2021 influenza, injectabl e, quadrivalent, preservative free [facility] 1 [facility] 07-03-2020 COVID-19, mRNA, LNP- S, PF, 100mcg/0.5mL Dose [facility] 1 [facility] Comment on above: Result Comment: 2022: TPVALL 06-05-2020 COVID-19, mRNA, LNP- S, PF, 100mcg/0.5mL Dose [facility] 1 [facility] Comment on above: Result Comment: 2022: TPVALL 03-07-2020 influenza virus vaccine, unspecified formulation Suzan Vj [facility] 03-07-2020 Influenza, injectabl e, Madin [place] Canine Kidney, preservative free, quadrivalent P[facility] 1 [facility] 12-18-2018 influenza virus vaccine, unspecified formulation Suzan Jv [facility] 12-18-2018 influenza, injectabl e, quadrivalent, preservative free [facility] 1 [facility] 05-03-1999 measles, mumps and rubella virus vaccine P[facility] 1 [facility] Payers Date Payer Category Payer Self-pay [id number] 2021 [employer] [facility] Other ANTHEM [id number] 2021 Unknown [id number]. [id number] 1985 Unknown [id number] 2.16.840.1.945942.3.579. 2.593 1985 Unknown [id number] 2.16.840.1.567074.3.579. 2.9 1986 Unknown [id number] 2.16.840.1.473115.3.579. 2.9 1986 Unknown [id number] 2.16.840.1.724968.3.579. 2.1259 1986 Unknown [id number] 2.16.840.1.633290.3.579. 2.1285 1986 Unknown [id number] 2.16.840.1.935957.3.579. 2.6 1986 Unknown [id number] 2.16.840.1.855924.3.579. 2.1285 1986 Unknown [id number] 2.16.840.1.304318.3.579. 2.1286 1986 Unknown [id number] 2.16.840.1.856922.3.579. 2.1285 1986 Unknown [id number] 2.16.840.1.329688.3.579. 2.727 1986 Unknown [id number] 2.16.840.1.059359.3.579. 2.727 1986 Unknown [id number] 2.16.840.1.784427.3.579. 2.727 1986 Unknown [id number] 2.16.840.1.524523.3.579. 2.727 1986 Unknown [id number] 2.16.840.1.703830.3.579. 2.727 1986 Unknown [id number] 2.16.840.1.505386.3.579. 2.727 1959 Unknown [id number] Unknown [id number] 2.16.840.1.815535.3.579. 2.531 Social History Date Type Detail Facility Unknown if ever smoked [facility] Other Start: 04-05-2020 End: 07-13-2023 Sex Assigned At [employer] Other Start: 1985 Sex Assigned At Male F [facility] Start: 12-23-2021 End: 07-06-2024 Tobacco smoking status WAIS Never smoked tobacco [facility] Start: 12-23-2021 Tobacco use and exposure Former smokeless tobacco user [facility] History of tobacco use Chews Tobacco [facility] Start: 01-01-2023 End: 07-13-2023 Alcoholic beverage intake Ex-drinker (finding) [facility] Start: 04-05-2020 End: 07-13-2023 History of Social function [facility] Adolescent depressio n screening assessment 1 [facility] Start: 12-22-2022 Alcohol Comment [facility] Start: 1985 Sex assigned at Not on file [facility] Start: 04-18-2019 Sex Male (finding) [facility] Sexual Orientation [facility] Medical Equipment Procedure Code Equipment Code Equipment Origin al Text Equipment Identifier Dates Mesh Pp Pariten Mac [id number] - [id number] , [id number] FDA Start: 01-31-2020 Goals Date Patient Goal Desired Activity /State Personal health goal Comment on above: Formatting of this n ote might be different from the original. Evaluation of progress towards goal: Plan is to return home with self-care. Clinical Notes 04-14-2022 to 08-14-2023 Telephone Encounter - Adwoa Montilla - 08/14/2023 12:22 PM EDTTelephone Encounter - Carrol Joel - 08/14/2023 12:22 PM EDTTelephone Encounter - Adwoa Montilla - 08/14/2023 12:22 PM EDT Note Date & Type Note Facility 08-14-2023 Miscellaneous Notes Formattin g of this note might be different from the original. 08/12 Order received 08/13 Called PT LM to schedule sleep study. CPAP Order and use 4/5/24 J. Vj Notes in MM TCO2 Please see order in MM for comments Scheduled Cpap @ [facility] on 02/04 My chart confirmation Routed Lokesh [place] blue in s CPAP Order and use 4/5/24 J. Vj Notes in MM TCO2 Please see order in MM for comments documented in this encounter [facility] 08-14-2023 Telephone encount er Note 08/12 Order received 08/13 Called PT LM to schedule sleep study. CPAP Order and use 4/5/24 J. Vj Notes in MM TCO2 Please see order in MM for comments [facility] 08-14-2023 Telephone encount er Note Scheduled Cpap @ [facility] on 02/04 My chart confirmation Routed Lokesh [place] blue in s CPAP Order and use 4/5/24 J. Vj Notes in MM TCO2 Please see order in MM for comments [facility] 04-14-2022 Evaluation note Encounter Date Diagnosis Assessment [...] as needed for aches pains or fevers Software 2000 [facility] [employer] Other Evaluation + Plan note No data available for this section [facility] Evaluation noteNo assessment information available [facility] Work Phone: Evaluivpqt note* Diagnosis Obstructive sleep apnea Obstructive sleep apnea (adult) (pediatric) [facility] - Reported* Type Description Date Medical History IBS Medical History ventral hernias Surgical History KNEE SURGERY-RIGHT Surgical History hernia x2 Hospitalization History eye injury [facility] [employer] Other Hospital Discharge instructions No data available for this section [facility] InstructionsNot on filedocumented in this encounter [facility] DashbookInstructionsNot on filedocumented in this encounter [facility] Visual [employer] note No data available for this section [facility] Reason for visit Narrative* Misc (Routine) - Closed Specialty Diagnoses / Procedures Referred By Taqueria orona Referred To Contact Diagnoses Obstructive sleep apnea Procedures CPAP Suzan Doyle, CABLE TESTER-ROOFING APPLICATOR Phone: tel: fax: [facility] [address] [place] [address] Phone: tel: Referral ID Status Reason Start Date Expiration Date Visits Re quested Visits Authorized [id number] Closed 08/14/2023 08/13/2024 1 1 [facility] Summary Purpose Family History No Family History Records FoundNo Family History Records FoundNo Family History Records FoundNo Family History Records FoundNo Family History Records Found No data available for this section No Family History Records FoundNo Family History [...] Comments 08/28/2019 9:24 PM 08/31/2019 6:49 PM Date Activated Date Inactivated Comments 01/31/2020 10:28 [...] section and content) DATE CREATED AUTHOR 07/08/2019 [facility] DATE CREATED AUTHOR AUTHOR'S ORGANIZ ATION 08/13/2021 [facility] DATE CREATED AUTHOR AUTHOR'S ORGANIZ ATION 03/04/2022 [facility] DATE CREATED AUTHOR AUTHOR'S ORGANIZ ATION 02/12/2023 [facility] EPIC DATE CREATED AUTHOR AUTHOR'S ORGANIZ ATION 02/24/2024 [facility] DATE CREATED AUTHOR AUTHOR'S ORGANIZ ATION 07/07/2024 [facility] DATE CREATED AUTHOR AUTHOR'S ORGANIZ ATION 07/08/2024 [facility] DATE CREATED AUTHOR AUTHOR'S ORGANIZ ATION 07/12/2024 [facility] DATE CREATED AUTHOR AUTHOR'S ORGANIZ ATION 07/23/2024 [facility] REASON FOR VISIT (unrecogniz ed section and content) Specialty Diagnoses / Procedures Referred By Taqueria orona Referred To Contact Diagnoses Obstructive sleep apnea Procedures Home sleep study Suzan Doyle APRN-CNP [address] [place] [address] [facility] [address] [place] [address] Phone: [phone] Referral ID Status Reason Start Date Expiration Date Visits Re quested Visits Authorized [id number] Closed 06/15/2023 06/14/2024 1 1 Referral ID Status Reason Start Date Expiration Date Visits Re quested Visits Authorized [id number] Closed 07/10/2023 07/09/2024 1 1 Reason Onset Date Comments Sleep Lab 08/14/2023 CPAP Care Teams (unrecognized sec tion and content) Team Status: Active Member Role Status Dates Suzan Doyle NP-C Primary Care Provider Active Team Status: Inactive Member Role Status Dates Luke Camarena NP-C Attending Provider Active Suzan Doyle NP-Lucy Primary Care Provider Active Team Status: Inactive Member Role Status Dates Suzan Doyle NP-C Primary Care Provider Active LYNNETTE Tran Attending Provider Active Box Printer Relationship Specialty Start Date End Date Suzan Doyle APRN-CNP PCP - General Nurse Practitioner 07/26/22 Box Printer Relationship Specialty Start Date End Date Suzan Doyle APRN-CNP [address] [place] [phone] PCP - General Nurse Practitioner 07/26/22 Box Printer Relationship Specialty Start Date End Date Suzan Doyle APRN-CNP [address] [place] [id number] PCP - General Nurse Practitioner 07/26/22 Goals [...] BE BASED ON THE PRIMARY CLINICAL RECORDS. [facility] [employer] [facility]. provides no warranty or guarantee of the accuracy or completeness of information in this document.
--- NOTE | 2024-08-26 06:00 | ED_ITS ---
HPI HPI - Extremity Injury (Lower) General Chief Complaint: Extremity Injury, Lower Stated Complaint: LOWER EXTREMITY BLEED Time Seen by Provider: 08/26/24 05:58 Source: patient Mode of arrival: ambulance Limitations: no limitations History of Present Illness HPI Narrative: This 39-year-old male with a history of varicose veins is brought to the emergency department by EMS. The patient was getting ready to go to the gym this morning and putting on his gym shorts when he suddenly had acute bleeding from a varicosity on the left lower lateral leg. EMS was called. 2 tourniquets were applied on the lower extremity and pressure was applied but the patient was still having acute arterial bleeding upon arrival. According to EMS he had lost at least a liter of blood. He denies any complaint of pain. He denies any dizziness or shortness of breath. He has had this in the past and has not been seen by a vascular specialist or vein specialist. Related Data Allergies Allergy/AdvReac Type Severity Reaction Status Date / Time oxymetazoline (From Afrin Allergy Severe Swelling Verified 04/02/24 18:30 (oxymetazoline)) of Lip/Tongue/Throat Opioid HPI Opioid Management Most Recent Pain and Opioid Data: Last Pain Scale 2 Today, 05:38 Review of Systems ROS Status of ROS 10 or more systems reviewed and unremark able except as noted in history and below PFSH PFSH Social History Little interest or pleasure in doing things: not at all Feeling down, depressed, or hopeless: not at all Exam Narrative Exam Narrative: Vital signs and Nursing Notes reviewed: Patient is afebrile with a normal pulse, normal respiratory rate, blood pressure is elevated 147/93, he is not hypoxic with pulse ox of 98% on room air General: Obese adult male, awake, alert, oriented, no acute distress, lying comfortably on the stretcher HEENT: Normocephalic atraumatic, mucous membranes are moist and pink, eyes are clear, normal conjunctiva, vision is grossly intact Chest: Lungs are clear to auscultation with good air entry, there is no wheezing rhonchi or rales appreciated no accessory muscle use, patient is speaking in complete sentences-no chest wall tenderness to palpation CVS: Regular rate and rhythm S1-S2, no murmurs rubs or gallops, pulses are brisk and equal bilaterally ABD: Soft, nondistended, nontender, no rebound guarding or rigidity, bowel sounds are normal, no pulsatile masses appreciated Extremities: At the lateral aspect of the left mid to lower leg there was acute arterial bleeding coming from a varicosity. Foot is warm and sensate. Radial pulse is brisk. Skin: Normal in appearance without rash,pallor, petechiae or purpura Neuro: No focal deficits Constitutional Vital Signs, click to edit/add: Last Vital Signs Temp 97.8 F 08/26/24 05:38 Pulse 75 08/26/24 05:38 Resp 12 08/26/24 05:38 BP 147/93 H 08/26/24 05:38 Pulse Ox 98 08/26/24 05:38 O2 Del Method Room Air 08/26/24 05:38 Course Vital Signs Vital signs: Vital Signs Temperature 97.8 F 08/26/24 05:38 Pulse Rate 75 08/26/24 05:38 Respiratory Rate 12 08/26/24 05:38 Blood Pressure 147/93 H 08/26/24 05:38 Pulse Oximetry 98 08/26/24 05:38 Oxygen Delivery Method Room Air 08/26/24 05:38 Temperature 97.8 F 08/26/24 05:38 Pulse Rate 75 08/26/24 05:38 Respiratory Rate 12 08/26/24 05:38 Blood Pressure 147/93 H 08/26/24 05:38 Pulse Oximetry 98 08/26/24 05:38 Oxygen Delivery Method Room Air 08/26/24 05:38 MDM - Extremity Injury (Lower) MDM Narrative Medical decision making narrative: This 39-year-old male presents for evaluation of acute bleeding from a varicose vein in his left lower leg. Upon arrival he had acute arterial bleeding. According to EMS they felt that he had lost at least 1 L of blood. 2 tourniquets had been placed on his left lower leg but he continued to have acute arterial bleeding. Pressure was applied and the area was infiltrated with 1% lidocaine with epinephrine. Multiple sutures were placed into the area to achieve hemostasis. Hemostatic dressing and pressure dressing was then applied. The patient remains hemodynamically stable in the emergency department. He was medicated with 1 g of IV Ancef. Routine labs are ordered. Has a normal white count at 7 and stable hemoglobin initially at 12.6. A type and screen was ordered. Repeat CBC was ordered. Patient was signed out to the incoming physician at 7 AM. There has been no recurrent bleeding since the varicosity was sutured. He remains hemodynamically stable. He was given referral information for a vein specialist in [facility]. Critical Care Time Critical Care Time Critical Care Time: Yes Total Critical Care Time: 35 Attestation: This patient presents with acute arterial bleeding from a varicosity in his left lower leg. Due to the high probability of sudden and clinically significant deterioration in his condition he required the highest level of my preparedness and intervention. I provided critical care time including documentation time medication orders and management, reevaluation, vital sign assessment ordering reviewing of lab test, reevaluation of the patient multiple times. Aggregate critical care time is 35 minutes including only time during which I was engaged in work directly related to his care and did not include time spent treating other patients simultaneously Discharge Plan Discharge Chief Complaint: Extremity Injury, Lower Clinical Impression: Bleeding from varicose vein Print Language: Mongolian Referrals: GENESIS ZABALA [Primary Care Provider, STATISTICIAN MATHEMATICAL] - 1 week Procedures ED Procedure Instructions Procedures Procedures: Procedure note: Management of acute arterial bleeding from varicosity of the left lower leg; pressure was applied with hemostatic gauze pads. 10 cc of 1% lidocaine with epinephrine was infiltrated around the bleeding varicosity. Additional pressure was applied. Approximately 10 sutures were placed into and around the bleeding varicosity with control of the acute bleeding. Additional hemostatic gauze pads and a pressure dressing was applied to the area after hemostasis was obtained.
[2024-08-26 06:08] LABS: Hematocrit 38.0 % (42.0-54.0); Hemoglobin 12.6 g/dL (14.0-18.0); Immature Granulocytes Abs Auto 0.03 10^3/uL (0.00-0.03); Immature Granulocytes Pct Auto 0.4 % (0.0-0.5); Lymphocytes Absolute Auto 2.6 10^3/uL (1.2-3.8); Mean Corpuscular HGB Conc 33.2 g/dL (29.9-35.2); Mean Corpuscular Hemoglobin 31.0 pg (25.9-34.0); Mean Corpuscular Volume 93.6 fL (80.0-94.0); Platelet Count 208 10^3/uL (150-450); Red Blood Count 4.06 10^6/uL (4.70-6.10); White Blood Count 7.0 10^3/uL (4.0-11.0)
[2024-08-26 06:20] LABS: Anion Gap 15.3; Blood Urea Nitrogen 23.0 mg/dL (7.0-18.0); Calcium 8.2 mg/dL (8.5-10.1); Carbon Dioxide 23.8 mmol/L (21.0-32.0); Chloride 111 mmol/L (98-107); Estimated GFR (African America >60 (>=60 mL/min/1.73m^2); Estimated GFR (Non-African Ame >60 (>=60 mL/min/1.73m^2); Glucose 118 mg/dL (74-106); Potassium 4.1 mmol/L (3.5-5.1); Sodium 146 mmol/L (136-145)
[2024-08-26] MEDS: CEFAZOLIN SODIUM/DEXTROSE,ISO 1 GM/50 ML PREMIX IV (06:47)
[2024-08-26] MEDS: LIDOCAINE HCL 1%-EPINEPHRINE 1:100,000 20 ML MDV 10 ML INJ (07:03)
[2024-08-26 07:31] LABS: Hematocrit 37.8 % (42.0-54.0); Hemoglobin 12.7 g/dL (14.0-18.0); Immature Granulocytes Abs Auto 0.03 10^3/uL (0.00-0.03); Immature Granulocytes Pct Auto 0.4 % (0.0-0.5); Lymphocytes Absolute Auto 1.4 10^3/uL (1.2-3.8); Mean Corpuscular HGB Conc 33.6 g/dL (29.9-35.2); Mean Corpuscular Hemoglobin 31.2 pg (25.9-34.0); Mean Corpuscular Volume 92.9 fL (80.0-94.0); Platelet Count 202 10^3/uL (150-450); Red Blood Count 4.07 10^6/uL (4.70-6.10); White Blood Count 7.6 10^3/uL (4.0-11.0)
--- NOTE | 2024-08-26 07:43 | ED_ITS ---
HPI HPI - General Adult General Chief complaint: Extremity Injury, Lower Stated complaint: LOWER EXTREMITY BLEED Time Seen by Provider: 08/26/24 05:58 Source: patient Mode of arrival: ambulance Limitations: no limitations History of Present Illness HPI narrative: 39-year-old male presented to the emergency department and was initially seen by Dr. Castro and signed out to me at change of shift after discussing the case with her thoroughly. Please see her full history and physical exam. Related Data Allergies Allergy/AdvReac Type Severity Reaction Status Date / Time oxymetazoline (From Afrin Allergy Severe Swelling Verified 04/02/24 18:30 (oxymetazoline)) of Lip/Tongue/Throat Opioid HPI Opioid Management Most Recent Opioid Data: Last Pain Scale 2 Today, 05:38 PFSH PFSH Social History Little interest or pleasure in doing things: not at all Feeling down, depressed, or hopeless: not at all Exam Constitutional Vital Signs, click to edit/add: Last Vital Signs Temp 97.8 F 08/26/24 05:38 Pulse 72 08/26/24 06:46 Resp 27 H 08/26/24 06:46 BP 142/89 H 08/26/24 06:46 Pulse Ox 96 08/26/24 06:46 O2 Del Method Room Air 08/26/24 05:38 Course Vital Signs Vital signs: Vital Signs Temperature 97.8 F 08/26/24 05:38 Pulse Rate 75 08/26/24 05:38 Respiratory Rate 12 08/26/24 05:38 Blood Pressure 147/93 H 08/26/24 05:38 Pulse Oximetry 98 08/26/24 05:38 Oxygen Delivery Method Room Air 08/26/24 05:38 Temperature 97.8 F 08/26/24 05:38 Pulse Rate 72 08/26/24 06:46 Respiratory Rate 27 H 08/26/24 06:46 Blood Pressure 142/89 H 08/26/24 06:46 Pulse Oximetry 96 08/26/24 06:46 Oxygen Delivery Method Room Air 08/26/24 05:38 Medical Decision Making [facility] Narrative Medical decision making narrative: Repeat hemoglobin is essentially unchanged and he is able to be discharged home Lab Data Lab results reviewed: Yes I reviewed the patient's lab results Labs: Lab Results 08/26/24 08/26/24 Range/Units 06:00 07:26 WBC 7.0 7.6 (4.0-11.0) 10^3/uL RBC 4.06 L 4.07 L (4.70-6.10) 10^6/uL Hgb 12.6 L 12.7 L (14.0-18.0) g/dL Hct 38.0 L 37.8 L (42.0-54.0) % MCV 93.6 92.9 (80.0-94.0) fL MCH 31.0 31.2 (25.9-34.0) pg MCHC 33.2 33.6 (29.9-35.2) g/dL RDW 13.5 13.4 (11.0-15.0) % Plt Count 208 202 (150-450) 10^3/uL MPV 11.4 11.4 (9.5-13.5) fL Neut % (Auto) 50.4 73.3 (43.0-75.0) % Lymph % (Auto) 37.8 18.0 L (20.5-60.0) % [place] % (Auto) 8.3 6.3 (1.7-12.0) % Eos % (Auto) 2.7 1.6 (0.9-7.0) % Baso % (Auto) 0.4 0.4 (0.2-2.0) % Neut # (Auto) 3.5 5.6 (1.4-6.5) 10^3/uL Lymph # (Auto) 2.6 1.4 (1.2-3.8) 10^3/uL [place] # (Auto) 0.6 0.5 (0.3-0.8) 10^3/uL Eos # (Auto) 0.2 0.1 (0.0-0.7) 10^3/uL Baso # (Auto) 0.0 0.0 (0.0-0.1) 10^3/uL Abs Immat Gran (auto) 0.03 0.03 (0.00-0.03) 10^3/uL Imm/Tot Granulo (auto) 0.4 0.4 (0.0-0.5) % Sodium 146 H (136-145) mmol/L Potassium 4.1 (3.5-5.1) mmol/L Chloride 111 H (98-107) mmol/L Carbon Dioxide 23.8 (21.0-32.0) mmol/L Anion Gap 15.3 BUN 23.0 H (7.0-18.0) mg/dL Creatinine 0.92 (0.70-1.30) mg/dL Est GFR ( Amer) >60 (>=60 mL/min/1.73m^2) Est GFR (Non-Af Amer) >60 (>=60 mL/min/1.73m^2) BUN/Creatinine Ratio 25.0 Glucose 118 H (74-106) mg/dL Calcium 8.2 L (8.5-10.1) mg/dL Blood Type A Negative Antibody Screen Negative Discharge Plan Discharge Chief Complaint: Extremity Injury, Lower Clinical Impression: Bleeding from varicose vein Patient Disposition: Home, Self-Care Time of Disposition Decision: 07:42 Condition: Good Mode of Transportation: Private Vehicle Print Language: [place] Instructions: Laceration (ED) Additional Instructions: Sutures to be removed in 1 week Referrals: GENESIS ZABALA [Primary Care Provider, [facility]] - 1 week
== END 2024-08-26 08:15 | disposition home or self-care (01) ==
PROVIDERS: Emergency Medicine; Emergency Provider Emergency Medicine; PCP Nurse Practitioner
DX: I83.892 Varicose veins of left lower extremity with other complications (principal); E66.9 Obesity, unspecified; Z68.42 Body mass index [BMI] 45.0-49.9, adult
CPT/HCPCS: 12001; 36415; 80048; 85025; 86850; 86900; 86901; 96365; 99284; J0690

== ENCOUNTER 2024-09-08 18:57 | Emergency (ER) | payer BC, SELFPAY ==
[2024-09-08 19:01] VITALS: BP 162/95; PULSE 96; TEMP 36.8; O2SAT 98; BMI 45.9
--- OUTSIDE RECORDS SUMMARY | 2024-09-08 19:04 | XMS_ITS | CCD ---
Author Organization [facility] Care Team Providers Care Transportation Program Director Name Role Phone WASHINGTON BRANCH Admitting Unavailable WASHINGTON BRANCH Attending Unavailable DR CHANDLER OCONNELL Primary Care Unavailable WASHINGTON BRANCH Consulting Unavailable Leilani Wagner Unavailable LYNNETTE Camarena Attending Provider [phone] LYNNETTE Doyle Primary Care Provider TOM NORTON Attending Unavailable APLINGTOM Attending Unavailable APLTOM ARENAS Attending Unavailable Vj COLLEGE SPECIALIST-FINANCE VICE PRESIDENTSuzan Primary Care Provider VJ, SUZAN Valladares Referring Unavailable VJ, SUZAN Valladares Primary Care Unavailable VJ, SUZAN Valladares Referring Unavailable VJ, SUZAN Valladares Primary Care Unavailable VJ, SUZAN Valladares Referring Unavailable VJ, SUZAN Valladares Primary Care Unavailable VJ, SUZAN Valladares Referring Unavailable VJ, SUZAN Valladares Primary Care Unavailable VJ, SUZAN Valladares Referring Unavailable VJ, SUZAN Valladares Primary Care Unavailable Vj COLLEGE SPECIALIST-FINANCE VICE PRESIDENTSuzan Primary Care Provider VjSuzan Primary Care Physician [phone] Vj, Suzan Valladares Attending Unavailable Vj, Suzan Valladares Attending Unavailable Vj, Suzan Valladares Attending Unavailable Vj, Suzan Valladares Admitting Unavailable Vj, Suzan Valladares Attending Unavailable Vj, Suzan Valladares Attending Unavailable Vj, Suzan Valladares Attending Unavailable Jomar Woodard Attending Unavailab Jomar Talbert Admitting Unavailab Lore Mccain Primary Care Unavailable Vj, LEAD ADVISOR Suzan Valladares Admitting Unavailable Vj, LEAD ADVISOR Suzan Valladares Attending Unavailable Vj, LEAD ADVISOR Suzan Valladares Attending Unavailable Allergies Allergy Classification Reported Allergen(s) Allergy Type Date of Onset Reaction(s) Facility (2 sources) No Known Medication Allergies; Translations: [No Known Medication Allergies] Propensity to adverse reactions (disorder) [facility] Repository Medications Current Medications Medication Drug Class(es) [...] needed for sleep Indications: difficulty sleeping. Active [id number] 200 actuat albuterol 0.09 mg/actuat metered dose [...] DAY, # 90 tab(s), Refills(s) 3, Pharmacy: [id number], 171.5, cm, 04/11/24 15:30:00 EST, Height/Length Dosing, [...] hours as needed for pain. Active omega 3-vwt-qya-fish oil 300-1,000 mg capsule (4 sources) take 300-1000 mg by mouth in the morning omega 5-qpu-hps-fish oil 300-1,000 mg capsule Take 1 capsule by mouth in the morning. Active omeprazole 40 mg delayed release oral capsule (6 sources) Proton Pump Inhibitor Start: 06-17-2024 take 1 capsule by mouth once daily omeprazole 40 mg Cap-DR See Instructions, TAKE 1 CAPSULE BY MOUTH EVERY DAY, # 90 cap(s), Refills(s) 3, Pharmacy: [id number], 171.5, cm, 04/11/24 15:30:00 EST, Height/Length Dosing, 179.3, kg, 04/11/24 15:30:00 EST, Weight Dosing Start Date: 06/17/24 Status: Ordered Quantity: 90.0 Unit: cap(s) Repeat number: 1 Start: 08-25-2022 take 1 capsule by mo uth once daily omeprazole (PriLOSEC) 40 mg capsule [...] Translations: [Pain in right lower leg] Onset: Episodic Other connective tissue disease (1 source) [...] Translations: [Obstructive sleep apnea (adult) (pediatric)] Onset: Chronic Residual codes; unclassified (1 source) Disturbance [...] Range Facility Family Medicine Office/Clini c Noteon 09-02-2024 Family Medicine Office/Clinic Note Family Medicine Office/Clinic Note HPI Staff Kkie is a 39 year old female presenting with er f/u, suture removal left leg ER followup: Hospital: [facility] (did print out report) Visit date: 08/26/24 Symptoms the patient presented with: varicose ruptured on left lower leg, 10 sutures were placed according to EMS he lost at least a liter of blood has had this in the past, but has never seen a vein specialist States he is worried that it will not close and that the stitches look strange to him. Is still noticing some blood on the bandage, no discharge Pt states that he had leg cramps previous to the rupture History of Present Illness pt presents today for suture removal Review of Systems PHQ Score Initial Depression Screen Score: 1 SCORE Physical Exam Vitals & Measurements HR: 106(Peripheral) RR: 20 BP: 134/84 SpO2: 95% HT: 68 in HT: 171.5 cm WT: 385.588 lb WT: 174.9 kg BMI: 59.47 General: alert, no acute distress ENMT: oral mucosa moist, no pharyngeal erythema or exudate Cardiovascular: regular rate and rhythm, normal peripheral perfusion Respiratory: Lungs CTA, respirations non labored Extremities: no deformity, no trauma Neurological: oriented x 4, LOC appropriate for age, CN II-XII intact, motor strength equal & normal bilaterally, speech normal sutures left lateral lower calf area, mild swelling, no redness or drainage Assessment/Plan 1. Ruptured varicose vein (I83.899: Varicose veins of unspecified lower extremity with other complications) pt presents today for suture removal. pt has a second varicose vein rupture a week ago. pt was just changing his clothes to go to the gym. he said this one bled much worse than the first time. They had a hard time getting it to stop. placed two tourniquets on it and it still kept bleeding. pt states it took them a long time to get it sutured up. sutures were removed in office today. patient tolerated well. area was cleansed and 4x4 applied and covered with large Band-Aid. after care instructions discussed. pt was provided a couple tourniquets to have on hand in case it happens again. he is scheduled to see vascular surgeon in a couple weeks. RTC as needed 2. BMI 50.0-59.9, adult, (Z68.43: Body mass index [BMI] 50.0-59.9, adult)Body mass index [BMI] 50.0-59.9, adult BMI education given 3. Class 3 severe obesity due to excess calories with body mass index (BMI) of 50.0 to 59.9 in adult (E66.813: Obesity, class 3) see above 4. Non-smoker (Z78.9: Other specified health status) continue not smoking Morbid (severe) obesity due to excess calories (E66.01: Morbid (severe) obesity due to excess calories) see Follow-up No qualifying data available Problem List/Past Medical History Ongoing Abdominal pain Carpal tunnel syndrome, right Cough Elevated ALT measurement Elevated liver enzymes Encounter for removal of sutures History of bowel disorder History of hiatal hernia History of inguinal hernia Leg laceration Loud snoring Morbid obesity with BMI of 50.0-59.9, adult Otitis media of both ears Right calf pain Right knee pain Ruptured varicose vein Screening for hyperlipidemia Sinusitis Skin tag Sleep disturbance Vitamin D deficiency Wellness examination Witnessed apneic spells Historical No qualifying data Procedure/Surgical History Surgery (01/23/2023), Colonoscopy (03/26/2019), Large bowel resection, Repair of diaphragmatic hiatal hernia, Repair of inguinal hernia. Medications ergocalciferol 50,000 intl units Cap, See Instructions Fish Oil 1000 mg oral capsule, 1000 [...] History Alcohol - Low Risk, 07/25/2022 Current. none. 1-2 times per month., 09/02/2024 Substance Abuse - Denies Substance Abuse, 07/25/2022 Never., 04/11/2024 Tobacco - Denies Tobacco Use, 07/25/2022 Never (less than 100 in lifetime) Tobacco Use:., 09/02/2024 Family History COPD: Mother and Brother. Diabetes [...] Recorded 2022-07-24: TPVALL influenza virus vaccine, inactivated 01 (more content not included)... Normal [facility] Comment on above: Result Comment: Elec tronically Signed By: Suzan Connelly\Date and Time Signed: 09/02/24 11:41 EDT CBC w/ Auto Diffon 5 Basophils/100 WBC (Bld) 0.4 % Normal 0.0-2.0 [facility] Comment on above: Performed By: #### 2 [id number] #### [facility] [address] [place] [address] Basophils/Leukocytes Auto (Bld) [Pure # fraction] 0.0 E9/L Normal 0.0-0.2 [facility] Comment on above: Performed By: #### 2 [id number] #### [facility] [address] [place] [address] Eosinophils (Bld) [#/Vol] 0.2 E9/L Normal 0.0-0.5 [facility] Comment on above: Performed By: #### 2 [id number] #### [facility] [address] [place] [address] Eosinophils/100 WBC (Bld) 2.6 % Normal 0.0-8.0 [facility] Comment on above: Performed By: #### 2 [id number] #### [facility] [address] [place] [address] 94[address] Erythrocyte distribution width (RBC) [Ratio] 13.8 % Normal 10.9-14.2 [facility] Comment on above: Performed By: #### 2 [id number] #### [facility] [address] [place] [address] Hematocrit (Bld) [Volume fraction] 42.3 % Normal 37.7-49.0 [facility] Comment on above: Performed By: #### 2 [id number] #### [facility] [address] [place] [address] Hemoglobin (Bld) [Mass/Vol] 14.4 g/dL Normal 13.5-17.5 [facility] Comment on above: Performed By: #### 2 329648 #### [facility] [address] [place] [address] Lymphocytes (Bld) [#/Vol] 1.8 E9/L Normal 1.0-4.0 [facility] Comment on above: Performed By: #### 2 [id number] #### [facility] [address] [place] [address] Lymphocytes/100 WBC (Bld) 21.2 % Normal 14.0-50.0 [facility] Comment on above: Performed By: #### 2 [id number] #### [facility] [address] [place] [address] MCH (RBC) [Entitic mass] 30.5 pg Normal 27.0-34.0 [facility] Comment on above: Performed By: #### 2 663126 #### [facility] [address] [place] [address] MCHC (RBC) [Mass/Vol] 34.0 g/dL Normal 31.4-36.0 [facility] Comment on above: Performed By: #### 2 [id number] #### [facility] [address] [place] [address] MCV (RBC) [Entitic vol] 89.7 fL Normal 80.0-100.0 [facility] Comment on above: Performed By: #### 2 [id number] #### [facility] [address] [place] [address] Monocytes (Bld) [#/Vol] 0.6 E9/L Normal 0.2-1.0 [facility] Comment on above: Performed By: #### 2 [id number] #### [facility] [address] [place] [address] Neutrophils (Bld) [#/Vol] 5.8 E9/L Normal 2.0-7.5 [facility] Comment on above: Performed By: #### 2 [id number] #### [facility] [address] [place] [address] Neutrophils/100 WBC (Bld) 69.0 % Normal 36.0-75.0 [facility] Comment on above: Performed By: #### 2 [id number] #### [facility] [address] [place] [address] Platelet mean volume (Bld) [Entitic vol] 10.6 fL Normal 6.4-10.8 [facility] Comment on above: Performed By: #### 2 [id number] #### [facility] [address] [place] [address] Platelets (Bld) [#/Vol] 220.0 E9/L Normal 150.0-500.0 [facility] Comment on above: Performed By: #### 2 [id number] #### [facility] [address] [place] [address] RBC (Bld) [#/Vol] 4.7 E12/L Normal 4.3-5.9 [facility] Comment on above: Performed By: #### 2 [id number] #### [facility] [address] [place] [address] WBC corrected for nucl RBC Auto (Bld) [#/Vol] 8.4 E9/L Normal 4.0-11.0 [facility] Comment on above: Performed By: #### 2 [id number] #### [facility] [address] [place] [address] CHEMISTRYOrdered By: SYSTEM SYSTEM on 07-06-2024 25-hydroxyvitamin [...] 07-06-2024 Albumin [Mass/Vol] 4.6 g/dL Normal 3.3-5.0 [facility] Comment on above: Performed By: #### 2 800398 #### [facility] [address] [place] [address] Albumin/Globulin (S) [Mass conc ratio] 1.8 Normal 1.1-2.2 [facility] Comment on above: Performed By: #### 2 [id number] #### [facility] [address] [place] [address] ALP [Catalytic activity/Vol] 42 Int._Unit/L Normal 21-98 [facility] Comment on above: Performed By: #### 2 [id number] #### [facility] [address] [place] [address] ALT No additional P-5'-P [Catalytic activity/Vol] 66 Int._Unit/L High 6-46 [facility] Comment on above: Performed By: #### 2 605573 #### [facility] [address] [place] [address] Anion gap [Moles/Vol] 12 mmol/L Normal 6-16 [facility] Comment on above: Performed By: #### 2 873175 #### [facility] [address] [place] [address] AST [Catalytic activity/Vol] 38 Int._Unit/L Normal 5-43 [facility] Comment on above: Performed By: #### 2 873902 #### [facility] [address] [place] [address] Bilirubin [Mass/Vol] 0.6 mg/dL Normal 0.0-1.1 [facility] Comment on above: Performed By: #### 2 220347 #### [facility] [address] [place] [address] Calcium [Mass/Vol] 9.4 mg/dL Normal 8.9-11.1 [facility] Comment on above: Performed By: #### 2 [id number] #### [facility] [address] [place] [address] Chloride [Moles/Vol] 106 mmol/L Normal 101-111 [facility] Comment on above: Performed By: #### 2 [id number] #### [facility] [address] [place] [address] CO2 [Moles/Vol] 25 mmol/L Normal 21-31 [facility] Comment on above: Performed By: #### 2 623175 #### [facility] [address] [place] [address] Creatinine [Mass/Vol] 0.9 mg/dL Normal 0.5-1.3 [facility] Comment on above: Performed By: #### 2 [id number] #### [facility] [address] [place] [address] Globulin (S) [Mass/Vol] 2.5 g/dL Normal 1.4-4.0 [facility] Comment on above: Performed By: #### 2 [id number] #### [facility] [address] [place] [address] Glucose [Mass/Vol] 116 mg/dL Normal 55-199 [facility] Comment on above: Performed By: #### 2 946309 #### [facility] [address] [place] [address] Potassium [Moles/Vol] 3.7 mmol/L Normal 3.5-5.3 [facility] Comment on above: Performed By: #### 2 [id number] #### [facility] [address] [place] [address] Protein [Mass/Vol] 7.1 g/dL Normal 6.0-7.8 [facility] Comment on above: Performed By: #### 2 810322 #### [facility] [address] [place] [address] Sodium [Moles/Vol] 139 mmol/L Normal 135-145 [facility] Comment on above: Performed By: #### 2 830596 #### [facility] [address] [place] [address] Urea nitrogen [Mass/Vol] 20 mg/dL Normal 5-21 [facility] Comment on above: Performed By: #### 2 [id number] #### [facility] [address] [place] [address] Urea nitrogen/Creatinine [Mass ratio] 22 No Units High 10-20 [facility] Comment on above: Performed By: #### 2 512492 #### [facility] [address] [place] [address] Family Medicine Office/Clini c Noteon 07-06-2024 Family Medicine Office/Clinic Note Family Medicine Office/Clinic Note [facility] Staff Kike is a 39 year old male presenting [...] Panel Est Preventative 18 to 39 years 179[address] Lipid Panel Magnesium Level Thyroid Stimulating Hormone Vitamin B12 Level Vitamin D 25 Hydroxy 2. Screening for hyperlipidemia (Z13.220: Encounter for screening for lipoid disorders) lipid panel drawn Ordered: CBC w/ Auto Diff Comprehensive Metabolic Panel Est Preventative 18 to 39 years 58479 Lipid Panel Magnesium Level Thyroid Stimulating Hormone [...] Ordered: Est Preventative 18 to 39 years [address] Magnesium Level Vitamin B12 Level Vitamin D 25 Hydroxy 4. Non-smoker (Z78.9: Other specified health status) continue not smoking Ordered: Est Preventative 18 to 39 years [address] Magnesium Level Vitamin B12 Level Vitamin D 25 Hydroxy 5. Adult BMI 60.0-69.9 kg/sq m, (Z68.44: Body mass index [BMI] 60.0-69.9, adult)Body mass index [BMI] 60.0-69.9, adult BMI education Ordered: Est Preventative 18 to 39 years [address] Magnesium Level Vitamin B12 Level Vitamin D 25 Hydroxy 6. Class 3 severe obesity due to excess calories with body mass index (BMI) of 60.0 to 69.9 in adult (E66.813: Obesity, class 3) see above Ordered: Est Preventative 18 to 39 years [address] Magnesium Level Vitamin B12 Level Vitamin D 25 Hydroxy Morbid (severe) obesity due to excess calories (E66.01: Morbid (severe) obesity due to excess calories) see above Orders: fluticasone nasal, See Instructions, 48 Unspecified/Unknown , Refill(s) 1, INSTILL 1 SPRAY IN TO EACH NOSTRIL TWICE A DAY, [facility], 171.5, cm, 12/02/23 15:20:00 EDT, Height/Length Dosing, 172.1, kg, 12/02/23 15:20:00 EDT, Weight Dosing ubrogepant, 100 mg = 1 tab(s), Oral, Once, may repeat dose in 2 hours if needed, # 6 tab(s), Refills(s) 0, Pharmacy: [facility]/pharmacy #[id number], 171.5, cm, 05/29/23 10:06:00 EDT, [...] Diabetes mellit (more content not included)... Normal [facility] Comment on above: Result Comment: Elec tronically Signed By: Suzan Connelly\.br\Date and Time Signed: 07/06/24 13:48 EDT HEMATOLOGYOrdered [...] 07-06-2024 Cholesterol [Mass/Vol] 168 mg/dL Normal 120-200 [facility] Comment on above: Performed By: #### 2 [id number] #### [facility] [address] [place] [address] Cholesterol in HDL [Mass/Vol] 31 mg/dL Invalid Interpretation Code [facility] Comment on above: Result Comment: '>= 60 LOW RISK' '<= 40 HIGH RISK' Performed By: #### 2 [id number] #### [facility] [address] [place] [address] Cholesterol in LDL [Mass/Vol] 106 mg/dL Normal <=129 [facility] Comment on above: Performed By: #### 2 735285 #### [facility] [address] [place] [address] Cholesterol in VLDL [Mass/Vol] 61 mg/dL High 7-40 [facility] Comment on above: Performed By: #### 2 [id number] #### [facility] [address] [place] [address] Triglyceride [Mass/Vol] 305 mg/dL High <=149 [facility] Comment on above: Performed By: #### 2 404106 #### [facility] [address] [place] [address] Magnesiumon 07-06-2024 Magnesium [Mass/Vol] 1.8 mg/dL Normal 1.3-2.4 [facility] Comment on above: Performed By: #### 2 [id number] #### [facility] [address] [place] [address] TSHon 07-06-2024 TSH Qn 1.74 m[IU]/L Normal 0.34-5.60 [facility] Comment on above: Performed By: #### 2 854131 #### [facility] [address] [place] [address] Vit B12on 07-06-2024 Cobalamin (Vitamin B12) [Mass/Vol] 665 pg/mL Normal 50-1500 [facility] Comment on above: Performed By: #### 2 064150 #### [facility] [address] [place] [address] Vitamin D 25 Hydroxyon 07-06 25-hydroxyvitamin D3 [Mass/Vol] 18.3 ng/mL Low 30.0-100.0 [facility] Comment on above: Performed By: #### 5 [id number] #### [facility] [address] [place] [address] eGFRon 07-06-2024 eGFR 112 mL/min/1.73 m2 Normal >=59 [facility] Comment on above: Performed By: #### 1 [id number] #### [facility] [address] [place] [address] Family Medicine Office/Clini c Noteon 04-13-2024 Family [...] E&M of Est. Patient Low 20-29 Min 42567 Remove skin tags 15 or less 39071 2. Leg laceration (S81.819A: Laceration without foreign body, unspecified lower leg, initial encounter) pt had small laceration where a varicose vein ruptured and required 2 sutures Ordered: E&M of Est. Patient Low 20-29 Min 89611 Remove skin tags 15 or less 07011 3. Skin tag (L91.8: Other hypertrophic disorders of the skin) skin tag back of neck removed without difficulty. see procedure note for details. Ordered: E&M of Est. Patient Low 20-29 Min 40437 Remove skin tags 15 or less 90760 4. BMI 60.0-69.9, adult (Z68.44: Body mass [...] BID Flax Seed Oil Flonase 0.05 mg/inh Bigfoot, See Instructions magnesium oxide 500 mg oral [...] measles/mumps/rubel la virus vaccine 05/03/1999 Recorded Normal [facility] Comment on above: Result Comment: Elec tronically [...] Seed Oil) fluticasone nasal (Flonase 0.05 mg/inh Bigfoot) magnesium oxide (magnesium oxide 500 mg oral [...] 8:40 AM EDT With: Suzan Connelly Where: [place] [id number]- Medications What How Much When Why Instructions Unchanged ascorbic acid (Vitamin C 1000 mg oral tablet) 2 Tablets By Mouth Every day Unchanged cholecalciferol (Vitamin D3 2000 intl units oral Tab) 50 Microgram By Mouth Every day Unchanged cyanocobalamin (Vitamin B12 50 mcg oral tablet) 1 Tablets By Mouth Every day Unchanged flax (Flax Seed Oil) Unchanged fluticasone nasal (Flonase 0.05 mg/ inh Bigfoot) See instructions INSTILL 1 SPRAY IN TO [...] for choosing us for your care. [facility] Family Medicine Office/Clini c Noteon 12-02-2023 Family [...] u/s order provided. pt will go to [facility] for that. Ordered: amoxicillin-clavula wilma, = 1 tab(s), Oral, q12hr, X 7 day(s), # 14 tab(s), Refills(s) 0, Pharmacy: [facility]/pharmacy #[id number], 171.5, cm, 12/02/23 15:20:00 EDT, Height/Length Dosing, 172.1, kg, 12/02/23 15:20:00 EDT, Weight Dosing benzonatate, 200 mg = 1 cap(s), Oral, TID, X 7 day(s), # 21 cap(s), Refills(s) 0, Pharmacy: [facility]/pharmacy #[id number], 171.5, cm, 12/02/23 15:20:00 EDT, [...] day(s), # 21 tab(s), Refills(s) 0, [id number] 171.5, cm, 12/02/23 15:20:00 EDT, Height/Length Dosing, 172.1, kg, 12/02/23 15:20:00 EDT, Weight Dosing US Lower Extremity Venous Duplex Right 3. Non-smoker (Z78.9: Other specified health status) continue not smoking Ordered: amoxicillin-clavula wilma, = 1 tab(s), Oral, q12hr, X 7 day(s), # 14 tab(s), Refills(s) 0, Pharmacy: [facility]/pharmacy #[id number], 171.5, cm, 12/02/23 15:20:00 EDT, Height/Length Dosing, 172.1, kg, 12/02/23 15:20:00 EDT, Weight Dosing benzonatate, 200 mg = 1 cap(s), Oral, TID, X 7 day(s), # 21 cap(s), Refills(s) 0, Pharmacy: [facility]/pharmacy #[id number], 171.5, cm, 12/02/23 15:20:00 EDT, Height/Length Dosing, 172.1, kg, 12/02/23 15:20:00 EDT, Weight Dosing fluticasone nasal, 1 spray(s), Nasal, BID, 16 gram, Refill(s) 0, each nostril, [facility]/pharmacy #[id number], 171.5, cm, 12/02/23 15:20:00 EDT, Height/Length Dosing, 172.1, kg, 12/02/23 15:20:00 EDT, Weight Dosing methylPREDNISolone, = 1 packet(s), Oral, As Directed, as directed on package labeling, X 6 day(s), # 21 tab(s), Refills(s) 0, Pharmacy: [facility]/pharmacy #[id number], 171.5, cm, 12/02/23 15:20:00 EDT, Height/Length Dosing, 172.1, kg, 12/02/23 15:20:00 EDT, Weight Dosing Rapid COVID POC 33844 US Lower Extremity Venous Duplex Right 4. BMI 50.0-59.9, adult (Z68.43: Body mass index [BMI] 50.0-59.9, adult) BMI education Ordered: amoxicillin-clavula wilma, = 1 tab(s), Oral, q12hr, X 7 day(s), # 14 tab(s), Refills(s) 0, [id number], 171.5, cm, 12/02/23 15:20:00 EDT, Height/Length Dosing, 172.1, kg, 12/02/23 15:20:00 EDT, Weight Dosing benzonatate, 200 mg = 1 cap(s), Oral, TID, X 7 day(s), # 21 cap(s), Refills(s) 0, Pharmacy: [facility]/pharmacy #[id number], 171.5, cm, 12/02/23 15:20:00 EDT, Height/Length Dosing, 172.1, kg, 12/02/23 15:20:00 EDT, Weight Dosing fluticasone nasal, 1 spray(s), Nasal, BID, 16 gram, Refill(s) 0, each nostril, [facility]/pharmacy #[id number], 171.5, cm, 12/02/23 15:20:00 EDT, Height/Length Dosing, 172.1, kg, 12/02/23 15:20:00 EDT, Weight Dosing methylPREDNISolone, = 1 packet(s), Oral, A (more content not included)... Normal [facility] Comment on above: Result Comment: Elec tronically Signed By: Suzan Connelly\.gabe\Date and Time Signed: 12/02/23 16:39 EDT Family [...] no Remedies tried: _ _ _ Veronica Rodríguez & Mucinex. History of Present Illness pt [...] day(s), # 14 tab(s), Refills(s) 0, Pharmacy: [facility]/pharmacy #[id number], 171.5, cm, 11/04/23 13:45:00 EDT, Height/Length Dosing, 173, kg, 11/04/23 13:45:00 EDT, Weight Dosing benzonatate, 200 mg = 1 cap(s), Oral, TID, X 7 day(s), # 21 cap(s), Refills(s) 0, Pharmacy: [facility]/pharmacy #[id number], 171.5, cm, 11/04/23 13:45:00 EDT, [...] measles/mumps/rubel l (more content not included)... Normal [facility] Comment on above: Result Comment: Elec tronically Signed By: Suzan Connelly\.br\Date and Time Signed: 11/04/23 15:03 EDT Pre-Certification Formon Pre-Certification Form [id number] DC#1.00TIFF [facility] ALT No additional P-5'-P [Ca talytic activity/Vol]on 05-29-2023 ALT [Catalytic activity/Vol] 85 U/L High 0-40 [facility] [facility] Comment on above: Performed By: #### 1 744-2, 1919-09 #### [facility] ([id number]) [address] [place] [address], [address] [place] [address] Paula 05-29-2023 AST [Catalytic activity/Vol] 60 U/L High 0-41 [facility] Comment on above: Performed By: #### 1 744-2, 1919-09 #### [facility] ([id number]) [address], [address] [place] [address] GLUCOSE BLOODon 02-06-2022 Glucose [Mass/Vol] 99 mg/dL Normal 74-106 [facility] Comment on above: Performed By: #### L IPID, GLUC #### [facility] [address] [address] [address] Gin Hunter LIPID PROFILEon 02-06-2022 CHOL-HDL RATIO NORM SEE BELOW Normal [facility] Comment on above: Result Comment: 3.3 - 4.4 LOW RISK 4.4 - 7.1 AVERAGE RISK 7.1 - 11.0 MODERATE RISK >11.0 HIGH RISK Performed By: #### L IPID, GLUC #### [facility] [address] [address] [address] Gin Hunter Cholesterol [Mass/Vol] 189 mg/dL Normal <=200 [facility] Comment on above: Performed By: #### L IPID, GLUC #### [facility] [address] [address] [address] Gin Hunter Cholesterol in HDL [Mass/Vol] 34 mg/dL Critically low 40-60 [facility] Comment on above: Performed By: #### L IPID, GLUC #### [facility] [address] [address] [address] Gin Hunter Cholesterol in LDL [Mass/Vol] 102.0 mg/dL Normal [facility] Comment on above: Performed By: #### L IPID, GLUC #### [facility] [address] [address] [address] Gin Hunter Cholesterol.total/Cho lesterol in HDL [Mass ratio] 5.6 {ratio} Normal [facility] Comment on above: Performed By: #### L IPID, GLUC #### [facility] [address] [address] [address] Gin Hunter HDL NORMAL > or = 60 mg/dl - LOW CARDIOVASCULAR RISK <40 mg/dl - HIGH CARDIOVASCULAR RISK Normal [facility] Comment on above: Performed By: #### L IPID, GLUC #### [facility] [address] [address] [address] Gin Hunter LDL CALC NORMAL SEE BELOW Normal [facility] Comment on above: Result Comment: <100 mg/dl OPTIMAL 100 - 129 mg/dl NEAR OR ABOVE OPTIMAL 130 - 159 mg/dl BORDERLINE HIGH 160 - 189 mg/dl HIGH >190 mg/dl VERY HIGH Performed By: #### L IPID, GLUC #### [facility] [address] [address] [address] Gin Hunter Triglyceride [Mass/Vol] 265 mg/dL Critically high <=150 [facility] Comment on above: Performed By: #### L IPID, GLUC #### [facility] [address] [address] [address] Gin Hunter VLDL CALC 53.0 mg/dL Normal [facility] Comment on above: Performed By: #### L IPID, GLUC #### [facility] [address] [address] [address] Gin Hunter [facility] 08-13-2021 Albumin [Mass/Vol] 4.5 g/dL Normal 3.6-5.1 [facility] Comment on above: Performed By: #### 7 600, 17171 #### [facility] [place] [address] Plate Grinder: José Miguel Murillo MD Albumin/Globulin [Mass ratio] 2.0 {ratio} Normal 1.0-2.5 [facility] Comment on above: Performed By: #### 7 600, 84356 #### [facility] [place] [address] Plate Grinder: José Miguel Murillo MD ALP [Catalytic activity/Vol] 37 U/L Normal 36-130 [facility] Comment on above: Performed By: #### 7 600, 90546 #### [facility] [place] [address] Plate Grinder: José Miguel Murillo MD ALT [Catalytic activity/Vol] 49 U/L High 9-46 [facility] Comment on above: Performed By: #### 7 600, 29817 #### [facility] of [address] [address] Plate Grinder: José Miguel Murillo MD AST [Catalytic activity/Vol] 26 U/L Normal 10-40 [facility] Comment on above: Performed By: #### 7 600, 30104 #### [facility] of [address] [place] [address] Plate Grinder: José Miguel Murillo MD Bilirubin [Mass/Vol] 0.6 mg/dL Normal 0.2-1.2 [facility] Comment on above: Performed By: #### 7 600, 70896 #### [facility] of [address] [place] [address] Plate Grinder: José Miguel Murillo MD BUN/CREATININE RATIO NOT APPLICABLE Normal 6-22 [facility] Comment on above: Performed By: #### 7 600, 42715 #### [facility] of [address] [place] [address] Plate Grinder: José Miguel Murillo MD Calcium [Mass/Vol] 9.3 mg/dL Normal 8.6-10.3 [facility] Comment on above: Performed By: #### 7 600, 44509 #### [facility] of [address] [place] [address] Plate Grinder: José Miguel Murillo MD Chloride [Moles/Vol] 106 mmol/L Normal 98-110 [facility] Comment on above: Performed By: #### 7 600, 54867 #### [facility] of [address] [place] [address] Plate Grinder: José Miguel Murillo MD CO2 [Moles/Vol] 26 mmol/L Normal 20-32 [facility] Comment on above: Performed By: #### 7 600, 65318 #### [facility] of [address] [place] [address] Plate Grinder: José Miguel Murillo MD Creatinine [Mass/Vol] 0.97 mg/dL Normal 0.60-1.[address] [facility] Comment on above: Performed By: #### 7 600, 44774 #### [facility] of [address], [address] [place] [address] Plate Grinder: José Miguel Murillo MD eGFR NON-AFR. CITIZEN OF [place] 101 mL/min/1.73m2 Normal > OR = 60 [facility] Comment on above: Performed By: #### 7 600, 20877 #### [facility] of [address], [address] [place] [address] Plate Grinder: José Miguel Murillo MD GFR/1.73 sq M.predicted among blacks MDRD (S/P/Bld) [Vol rate/Area] 117 mL/min/{1.73_m2} Normal > OR = 60 [facility] Comment on above: Performed By: #### 7 600, 26960 #### [facility] of [address] [place] [address] Plate Grinder: José Miguel Murillo MD Globulin (S) [Mass/Vol] 2.3 g/dL Normal 1.9-3.7 [facility] Comment on above: Performed By: #### 7 600, 00234 #### [facility] of [address], [address] [place] [address] Plate Grinder: José Miguel Murillo MD Glucose [Mass/Vol] 94 mg/dL Normal 65-99 [facility] Comment on above: Result Comment: Fasting reference interval Performed By: #### 7 600, 38772 #### [facility] of [address] [place] [address] Plate Grinder: José Miguel Murillo MD Potassium [Moles/Vol] 4.3 mmol/L Normal 3.5-5.[address] [facility] Comment on above: Performed By: #### 7 600, 16255 #### [facility] of [address] [place] [address] Plate Grinder: José Miguel Murillo MD Protein [Mass/Vol] 6.8 g/dL Normal 6.1-8.1 [facility] Comment on above: Performed By: #### 7 600, 00205 #### [facility] of [address] [place] [address] Plate Grinder: José Miguel Murillo MD Sodium [Moles/Vol] 140 mmol/L Normal 135-146 [facility] Comment on above: Performed By: #### 7 600, 22721 #### [facility] [address], [address] [place] [address] Plate Grinder: José Miguel Murillo MD Urea nitrogen [Mass/Vol] 18 mg/dL Normal 7-25 [facility] Comment on above: Performed By: #### 7 600, 34771 #### [facility] [address], [address] [place] [address] Plate Grinder: José Miguel Murillo MD LIPID PANEL, [facility] - Cholesterol [Mass/Vol] 166 mg/dL Normal <200 [facility] Comment on above: Order Comment: FASTI NG:YES FASTING: YES Performed By: #### 7 600, 87949 #### [facility] [address], [address] [place] [address] Plate Grinder: José Miguel Murillo MD Cholesterol in HDL [Mass/Vol] 30 mg/dL Low > OR = 40 [facility] Comment on above: Order Comment: FASTI NG:YES FASTING: YES Performed By: #### 7 600, 13375 #### [facility] [address], [address] [place] [address] Plate Grinder: José Miguel Murillo MD Cholesterol in LDL [...] LDL-C. Tay ELLINGTON et al. EMMY. 2013;310(19): 7256-9336 (http://education.[employer]/faq/CFH455) Performed By: #### 7 600, 65568 #### [facility] [address], [address] [place] [address] Plate Grinder: José Miguel Murillo MD Cholesterol.total/Cho lesterol in HDL [Mass ratio] 5.5 {ratio} High <5.0 [facility] Comment on above: Order Comment: FASTI NG:YES FASTING: YES Performed By: #### 7 600, 87033 #### [facility] [address], [address] [place] [address] Plate Grinder: José Miguel Murillo MD NON HDL CHOLESTEROL 136 mg/dL (calc) High <130 [facility] Comment on above: Order Comment: FASTI NG:YES FASTING: YES Result Comment: For patients with diabetes plus 1 major ASCVD risk factor, treating to a non-HDL-C goal of <100 mg/dL (LDL-C of <70 mg/dL) is considered a therapeutic option. Performed By: #### 7 600, 29502 #### [facility] [address], [address] [place] [address] Plate Grinder: José Miguel Murillo MD Triglyceride [Mass/Vol] 310 mg/dL High <150 [facility] Comment on above: Order Comment: FASTI NG:YES FASTING: YES Result Comment: If a non-fasting specimen was collected, consider repeat triglyceride testing on a fasting specimen if clinically indicated. Jhon et al. J. of Clin. Lipidol. 2015;9:129-169. Performed By: #### 7 600, 83353 #### [facility] [address], [address] [place] [address] Plate Grinder: José Miguel Teresa 07-08-2019 CNOV Office Visit (GENSAV) ---- KIKE CORTES ([id number]) 1985 M Date Time Provider Department 07/08/19 [...] Laterality Date - COLONOSCOP W/ OR W/O [facility] SPEC 2018 Colonoscopy - REPAIR [...] reports x 2. Refer to our [facility] [place] [facility] to further discuss separation of [...] Order(s):CONSULT TO GENERAL SURGERY [9011] Order #: [id number]: 1 FUTURE Prescriptions as of 07/08/2019 Sig: LUBIPROSTONE 8 MCG CAPSULE Take 8 mcg by mouth. SUCRALFATE 1 GRAM TABLET TAKE 1 TABLET BY MOUTH TWICE * Problem List As Of Date: 07/08/2019 (None) Encounter Status:Closed by CHANDLER BAILEY III, MD on 07/08/19 [facility] PHYSICAL[facility] 0 HISTORY PHYSICAL HNO ID: [id number] Author: Chandler Bailey III Service: ? Author Type: Physician Type: HANDP Filed: 07/08/2019 9:19 AM Note Text: Mr. Cortse is here today for my opinion regarding [...] Laterality Date - COLONOSCOP W/ OR W/O [facility] SPEC 2018 Colonoscopy - REPAIR [...] reports x 2. Refer to our Main [place] [facility] to further discuss separation of the components for repair and instructed he will need significant diet and exercise program to lose weight has his obesity is risk factor for recurrence. Chandler Bailey III, MD [facility] Vital Signs Date Time Vital Sign Value Performing Clinician Facility 02-22-2024 22:29-0500 Body height 177.8 cm [facility] 4 [facility] 02-22-2024 22:29-0500 Body mass index (BMI) [Ratio] 51.65 kg/m2 [facility] 4 [facility] 02-22-2024 22:29-0500 Body weight 163.29 kg P[facility] 4 [facility] 07-13-2023 19:37-0400 Body height 179.1 cm P[facility] 1 [facility] 07-13-2023 19:37-0400 Body mass index (BMI) [Ratio] 48.1 kg/m2 [facility] 1 [facility] 07-13-2023 19:37-0400 Body weight 154.22 kg P[facility] 1 [facility] 07-08-2023 13:50-0400 Body height 179.1 cm P[facility] 1 [facility] 07-08-2023 13:50-0400 Body mass index (BMI) [Ratio] 48.1 kg/m2 [facility] 1 [facility] 07-08-2023 13:50-0400 Body weight 154.22 kg P[facility] 1 [facility] 04-14-2022 14:50-0500 Body height 175.26 cm Leilani Wagner Other [employer] Other 04-14-2022 14:50-0500 Body mass index (BMI) [Ratio] 42.82 kg/m2 Leilani Wagner Other [employer] Other 02-20-2023 14:50-0500 Body temperature 97.8 [degF] Leilani Wagner Other [employer] Other 04-14-2022 14:50-0500 Body weight 131.54 kg Leilani Wagner Other [employer] Other 04-14-2022 14:50-0500 Respiratory rate 18 /min Leilani Wagner Other [employer] Other 04-14-2022 14:50-0500 SaO2% (BldA) [Mass fraction] 96 % Leilani Wagner Other [employer] Other Encounters Encounter Date Encounter Type Care Provider Facility Start: 09-02-2024 End: 09-02-2024 ambulatory LEAD ADVISOR Suzan L Vj Facility: [facility] Start: 07-20-2024 ambulatory Jomar Mcmahon acility:[facility] Start: 07-06-2024 End: 07-06-2024 Lab Drop off Suzan L Vj [facility] Start: 07-06-2024 End: 07-06-2024 ambulatory Suzan L Vj Facility: [facility] [place] [facility] Start: 06-13-2024 End: 06-13-2024 ambulatory Suzan L Vj Facility: [facility] [place] [facility] Start: 04-11-2024 End: 04-11-2024 ambulatory Suzan L Vj Facility: [facility] [place] [facility] Start: 02-22-2024 End: 02-22-2024 Clinical Support [facility] 4 [facility] Comment on above: Obstructive sleep ap haja Start: 12-07-2023 End: 12-07-2023 ambulatory SUZAN L VJ [facility] Start: 12-02-2023 End: 12-02-2023 ambulatory Suzan L Vj Facility:[facility] Start: 11-04-2023 End: 11-04-2023 ambulatory Suzan L Vj Facility:[facility] [place] Start: 08-14-2023 End: 08-14-2023 Telephone encounter Suzan Doyle COLLEGE SPECIALIST-FINANCE VICE PRESIDENT Work Phone: [facility] Comment on above: Sleep Lab (CPAP) Start: 07-13-2023 End: 07-13-2023 Clinical Support [facility] Comment on above: Obstructive sleep ap haja Start: 07-13-2023 End: 07-15-2023 ambulatory SUZAN L VJ [facility] Start: 07-08-2023 End: 07-08-2023 Clinical Support [facility] Comment on above: Obstructive sleep ap haja Start: 07-08-2023 End: 07-12-2023 ambulatory SUZAN L VJ [facility] Start: 05-29-2023 End: 05-29-2023 ambulatory SUZAN L VJ [facility] Start: 02-11-2023 End: 02-11-2023 ambulatory TOM B APLING Not Available Start: 01-21-2023 End: 01-21-2023 ambulatory TOM B APLING Not Available Start: 01-07-2023 End: 01-07-2023 ambulatory TOM B APLING Not Available Start: 12-12-2022 End: 12-12-2022 ambulatory PHOTOSTAT OPERATOR HELPER-C Suzan Doyle Work Phone: [facility] Work Phone: Start: 12-12-2022 End: 12-12-2022 Patient encounter procedure PHOTOSTAT OPERATOR HELPER-C Suzan Doyle Work Phone: [facility] [place] Work Phone: Start: 12-11-2022 End: 12-11-2022 ambulatory PHOTOSTAT OPERATOR HELPER-C Suzan Diaz Vj Work Phone: [facility] Work Phone: Start: 12-11-2022 End: 12-11-2022 Patient encounter procedure PHOTOSTAT OPERATOR HELPER-C Suzan Vj Work Phone: [facility] [address] Work Phone: Start: 04-14-2022 End: 04-14-2022 ambulatory Leilani Kristy Other [employer] Other Start: 04-14-2022 Office outpatient visit 15 minutes Leilani Wagner [facility] Start: 02-10-2022 Encounter for genera l adult medical examination without abnormal findings [facility] Start: 02-06-2022 End: 02-07-2022 ambulatory [place] [facility] Facility:[facility] Start: 02-06-2022 End: 02-07-2022 Encounter for general adult medical examination without abnormal findings [place] [facility] Facility: Procedures Date Procedure Procedure Detail Performing Clinician Start: 01-23-2023 Surgical procedure Suzan Vj Start: 12-12-2022 MRI of right knee PHOTOSTAT OPERATOR HELPER-C Suzan Vj Work Phone: Start: 12-23-2021 Adult depression scr eening assessment [facility] 1 Start: 03-26-2019 Colonoscopy Suzan Schwa b Comment on above: Dr. Thornton Esophageal hiatus he rnia repair Suzan Vj Large intestine excision Jod i Vj Repair of inguinal hernia Muna di Vj Plan of Treatment Date Care Activity Detail Author Start: 02-21-2025 Adult BMI Screening Adult BMI Screen ing [facility] Start: 07-12-2024 Adult BMI Screening Adult BMI Screen ing [employer] Start: 07-12-2024 [facility] Start: 07-07-2024 Adult BMI Screening Adult BMI Screen ing [employer] Start: 02-05-2024 End: 02-05-2024 Clinical Support 02/05/2024 8:00 PM EST Clinical Support [facility] [address] [place] [address] [facility] Start: 01-01-2024 Adult BMI Screening Adult BMI Screen ing [facility] Start: 01-01-2024 Tobacco Screening Tobacco Screening [facility] Start: 10-25-2023 COVID-19 Vaccine ( season) COVID-19 Vaccine ( season) [facility] Start: 10-25-2023 Influenza vaccination Influenza Vacc ine [facility] Start: 12-23-2022 Depression Screening Depression Scre ening [facility] Start: 10-24-2022 COVID-19 Vaccine ( season) COVID-19 Vaccine ( season) [facility] Start: 2005 DTaP,Tdap and Td Vaccines (1 - Tdap) DTaP,Tdap and Td Vaccines (1 - Tdap) [facility] Start: 2004 Adult BMI Follow Up Plan Adult BMI Follow Up Plan [facility] Immunizations Immunization Date Immunization Notes Care Provider Fa balaji 12-20-2021 influenza virus vaccine, unspecified formulation [facility] 1 [facility] 01-23-2021 SARS-CoV-2 (COVID-19 ) mRNA-1273 vaccine Suzan Vj [facility] Comment on above: Result Comment: 2022: TPVALL 01-09-2021 influenza virus vaccine, unspecified formulation Suzan Vj [facility] 01-09-2021 influenza, injectabl e, quadrivalent, preservative free P[facility] 1 [facility] 07-03-2020 COVID-19, mRNA, LNP- S, PF, 100mcg/0.5mL Dose P[facility] 1 [facility] Comment on above: Result Comment: 2022: TPVALL 06-05-2020 COVID-19, mRNA, LNP- S, PF, 100mcg/0.5mL Dose P[facility] 1 [facility] Comment on above: Result Comment: 2022: TPVALL 03-07-2020 influenza virus vaccine, unspecified formulation Suzan Doyle [facility] 03-07-2020 Influenza, injectabl e, Madin Betina Canine Kidney, preservative free, quadrivalent Pmh 1 [facility] 12-18-2018 influenza virus vaccine, unspecified formulation Suzan Doyle [facility] 12-18-2018 influenza, injectabl e, quadrivalent, preservative free P[facility] 1 [facility] 05-03-1999 measles, mumps and rubella virus vaccine P[facility] 1 [facility] Payers Date Payer Category Payer Self-pay [id number] 2021 [employer] [facility] Managed Care - Other ANTH [id number] 2021 Unknown [id number] [id number]. [id number] 1986 Unknown [id number] 2.16.840.1.601923.3.579. 2.593 1985 Unknown [id number] 2.16.840.1.044506.3.579. 2.1259 1986 Unknown [id number] 2.16.840.1.964136.3.579. 2.1259 1986 Unknown [id number] 2.16.840.1.200502.3.579. 2.1259 1986 Unknown [id number] 2.16.840.1.844418.3.579. 2.6 1986 Unknown [id number] 2.16.840.1.624707.3.579. 2.1285 1986 Unknown [id number] 2.16.840.1.493992.3.579. 2.1285 1986 Unknown [id number] 2.16.840.1.996623.3.579. 2.1285 1985 Unknown [id number] 2.16.840.1.126259.3.579. 2.1285 1986 Unknown [id number] 2.16.840.1.727339.3.579. 2. 1986 Unknown [id number] 2.16.840.1.031006.3.579. 2.7 1986 Unknown [id number] 2.16.840.1.026495.3.579. 2.7 1986 Unknown [id number] 2.16.840.1.981433.3.579. 2.7 1986 Unknown [id number] 2.16.840.1.371230.3.579. 2. 1986 Unknown [id number] 2.16.840.1.046718.3.579. 2.727 1986 Unknown [id number] 2.16.840.1.414018.3.579. 2.727 1959 Unknown [id number] Unknown [id number] 2.16.840.1.053241.3.579. 2.531 Social History Date Type Detail Facility Unknown if ever smoked [employer] Other Start: 04-05-2020 End: 07-13-2023 Sex Assigned At [facility] [employer] Other Start: 1985 Sex Assigned At Male F [facility] Start: 12-23-2021 End: 07-06-2024 Tobacco smoking status NHIS Never smoked tobacco [facility] Start: 12-23-2021 Tobacco use and exposure Former smokeless tobacco user [facility] History of tobacco use Chews Tobacco [facility] Start: 01-01-2023 End: 07-13-2023 Alcoholic beverage intake Ex-drinker (finding) [facility] Start: 04-05-2020 End: 07-13-2023 History of Social function [facility] Adolescent depressio n screening assessment 1 [facility] Start: 12-22-2022 Alcohol Comment former [facility] Start: 1985 Sex assigned at Not on file P [facility] Start: 04-18-2019 Sex Male (finding) [facility] Sexual Orientation [facility] Medical Equipment Procedure Code Equipment Code Equipment Origin al Text Equipment Identifier Dates Mesh Pp Pariten Mac [id number] - [id number] , [id number] FDA Start: 01-31-2020 Goals Date [...] schedule sleep study. CPAP Order and use 05/28/24 J. Vj Notes in MM TCO2 Please see order in MM for comments Scheduled Cpap @ [facility] on 02/04 My chart confirmation Routed [place] blue in s CPAP Order and use 4/24 J. Vj Notes in MM TCO2 Please see order in MM for comments documented in this encounter [facility] 08-14-2023 Telephone encount er Note 08/12 Order received 08/13 Called PT LM to schedule sleep study. CPAP Order and use 4/24 J. Vj Notes in MM TCO2 Please see order in MM for comments [facility] 08-14-2023 Telephone encount er Note Scheduled Cpap @ [facility] on 02/04 My chart confirmation Routed [place] blue in s CPAP Order and use 4/24 J. Vj Notes in MM TCO2 Please see order in MM for comments [facility] 04-14-2022 Evaluation note Encounter Date Diagnosis Assessment [...] as needed for aches pains or fevers [employer] Other Evaluation + Plan note No data available for this section [facility] Evaluation noteNo assessment information available [facility] Work Phone: Evaluation note* Diagnosis Obstructive sleep apnea Obstructive sleep apnea (adult) (pediatric) documented in this encounter [facility] SystemHistory general Narrative - Reported* Type Description Date Medical History IBS Medical History ventral hernias Surgical History KNEE SURGERY-RIGHT Surgical History hernia x2 Hospitalization History eye injury [employer] Other Hospital Discharge instructions No data available for this section [facility] InstructionsNot on filedocumented in this encounter [facility]ructionsNot on filedocumented in this encounter [facility] SystemProgress note No data available for this section [facility] Reason for visit Narrative* Misc (Routine) - Closed Specialty Diagnoses / Procedures Referred By [employer] Referred To Contact Diagnoses Obstructive sleep apnea Procedures CPAP Suzan Doyle, COLLEGE SPECIALIST-FINANCE VICE PRESIDENT Phone: tel: fax: [address] [place] [address] Phone: tel: Referral ID Status Reason Start Date Expiration Date Visits Re quested Visits Authorized [id number] Closed 08/14/2023 08/13/2024 1 1 [facility] Summary Purpose Family History No Family History [...] section and content) DATE CREATED AUTHOR 07/08/2019 [facility] DATE CREATED AUTHOR AUTHOR'S ORGANIZ ATION 08/13/2021 [facility] DATE CREATED AUTHOR AUTHOR'S ORGANIZ ATION 03/04/2022 [facility] DATE CREATED AUTHOR AUTHOR'S ORGANIZ ATION 02/12/2023 [facility] DATE CREATED AUTHOR AUTHOR'S ORGANIZ ATION 02/24/2024 [facility] DATE CREATED AUTHOR AUTHOR'S ORGANIZ ATION 07/07/2024 [facility] DATE CREATED AUTHOR AUTHOR'S ORGANIZ ATION 07/08/2024 [facility] DATE CREATED AUTHOR AUTHOR'S ORGANIZ ATION 07/23/2024 [facility] DATE CREATED AUTHOR AUTHOR'S ORGANIZ ATION 09/05/2024 [facility] REASON FOR VISIT (unrecogniz ed section and content) Specialty Diagnoses / Procedures Referred By Taqueria orona Referred To Contact Diagnoses Obstructive sleep apnea Procedures Home sleep study Suzan Doyle, COLLEGE SPECIALIST-FINANCE VICE PRESIDENT [address] [place] [address] [facility] [address] [place] [address] Phone: [phone] Referral ID Status Reason Start Date Expiration Date Visits Re quested Visits Authorized [id number] Closed 06/15/2023 06/14/2024 1 1 Referral ID Status Reason Start Date Expiration Date Visits Re quested Visits Authorized [id number] Closed 07/10/2023 07/09/2024 1 1 Reason Onset Date Comments Sleep Lab 08/14/2023 CPAP Care Teams (unrecognized sec tion and content) Team Status: Active Member Role Status Dates Suzan Doyle PHOTOSTAT OPERATOR HELPER-C Primary Care Provider Active Team Status: Inactive Member Role Status Dates Luke Camarena NP-C Attending Provider Active Suzan Doyle NP-Lucy Primary Care Provider Active Team Status: Inactive Member Role Status Dates Suzan Doyle PHOTOSTAT OPERATOR HELPER-C Primary Care Provider Active Luke Camarena NP-C Attending Provider Active Transportation Program Director Relationship Specialty Start Date End Date Suzan Doyle, COLLEGE SPECIALIST-FINANCE VICE PRESIDENT PCP - General Nurse Practitioner 07/26/22 Transportation Program Director Relationship Specialty Start Date End Date Suzan Doyle COLLEGE SPECIALIST-FINANCE VICE PRESIDENT [address] [place] [id number] PCP - General Nurse Practitioner 07/26/22 Transportation Program Director Relationship Specialty Start Date End Date Suzan Doyle, COLLEGE SPECIALIST-FINANCE VICE PRESIDENT [address] [place] [id number] PCP - General Nurse Practitioner 07/26/22 Goals [...] BE BASED ON THE PRIMARY CLINICAL RECORDS. [employer] provides no warranty or guarantee of the accuracy or completeness of information in this document.
--- NOTE | 2024-09-08 19:07 | PC.NURSE ---
area to back of left thigh red and warm to the touch.
--- NOTE | 2024-09-08 19:22 | ED.GENADUL1 ---
HPI HPI - General Adult General Chief complaint: Skin/Abscess/Foreign Body Stated complaint: Lower Pain Time Seen by Provider: 09/08/24 19:10 Source: patient Mode of arrival: walk-in History of Present Illness HPI narrative: Patient is a 39-year-old male who presents to the emergency department today for evaluation concerns for redness to his left upper leg after reportedly having a tourniquet on this leg a week prior due to a bleeding varicose vein on the lower leg. He does endorse some pain with ambulation due to his legs rubbing together. No paresthesias, notes, loss of movement to the affected extremity. He denies any sick symptoms of fevers or nausea/vomiting. He states he is not diabetic. Related Data Previous Rx's ?Medication ?Instructions ?Recorded cephalexin 500 mg capsule 500 mg PO BID 7 days #14 caps 09/08/24 Allergies Allergy/AdvReac Type Severity Reaction Status Date / Time oxymetazoline (From Afrin Allergy Severe Swelling Verified 04/02/24 18:30 (oxymetazoline)) of Lip/Tongue/Throat Opioid HPI Opioid Management Most Recent Opioid Data: Last Pain Scale 2 08/26/24, 05:38 Review of Systems ROS Status of ROS 10 or more systems reviewed and unremarkable except as noted in history and below PFSH PFSH Social History Little interest or pleasure in doing things: not at all Feeling down, depressed, or hopeless: not at all Exam Narrative Exam Narrative: Constituational: Awake/ alert, no apparent distress, well hydrated, obese HENMT: normocephalic, external ears normal, moist oral mucous membranes and oropharynx normal Eyes: EOMI and conjunctivae normal Neck: ROM intact Chest: inspection of chest normal Respiratory: Normal respiratory effort MSK: ROM intact, +NVI Skin: + Area of erythema and warmth to touch to anterior lateral aspect of the distal L upper leg, petechiae or rash otherwise Neuro: no focal deficits Psych: mental status grossly normal Constitutional Vital Signs, click to edit/add: Last Vital Signs Temp 98.3 F 09/08/24 19:01 Pulse 96 H 09/08/24 19:01 Resp 18 09/08/24 19:01 BP 162/95 H 09/08/24 19:01 Pulse Ox 98 09/08/24 19:01 O2 Del Method Room Air 09/08/24 19:01 Course Vital Signs Vital signs: Vital Signs Temperature 98.3 F 09/08/24 19:01 Pulse Rate 96 H 09/08/24 19:01 Respiratory Rate 18 09/08/24 19:01 Blood Pressure 162/95 H 09/08/24 19:01 Pulse Oximetry 98 09/08/24 19:01 Oxygen Delivery Method Room Air 09/08/24 19:01 Temperature 98.3 F 09/08/24 19:01 Pulse Rate 96 H 09/08/24 19:01 Respiratory Rate 18 09/08/24 19:01 Blood Pressure 162/95 H 09/08/24 19:01 Pulse Oximetry 98 09/08/24 19:01 Oxygen Delivery Method Room Air 09/08/24 19:01 Medical Decision Making MDM Narrative Medical decision making narrative: The patient is a nontoxic and well-appearing 39-year-old male who presented to the emergency department today for evaluation concerns for an area of redness to the medial aspect of the distal left upper leg. Initial examination patient with clinical evidence consistent with cellulitis to this area. No evidence of abscess or wound infection. Additionally no concerning neurovascular or motor findings on exam. Historically patient had a tourniquet placed to his leg by EMS due to a bleeding varicose vein over the past week to the leg of concern. Patient's had expressed concerns for possible DVT however there is low clinical suspicion for this and patient does have a negative Wells score. Discussed consideration for ultrasound imaging with the patient and his however they would like to hold off for now and continue with supportive measures for cellulitis as above. Will discharge home with cephalexin antibiotic therapy. Advised on follow-up with patient's primary care provider for reevaluation. Discussed signs and symptoms of any worsening condition and when to consider reevaluation by the emergency department. The patient verbalized an understanding of this and is agreeable with the plan to be discharged home. Medical Records Medical records reviewed: Yes I reviewed the patient's medical records Discharge Plan Discharge Chief Complaint: Skin/Abscess/Foreign Body Clinical Impression: Cellulitis Patient Disposition: Home, Self-Care Prescriptions / Home Meds: New cephalexin 500 mg capsule 500 mg PO BID 7 Days Qty: 14 0RF Print Language: Japanese Instructions: Cellulitis (ED) Additional Instructions: Take antibiotics as prescribed for the infection on your skin. May take Tylenol or ibuprofen as needed for any pain. Please up with your primary care provider next week for reevaluation as discussed. May return to the ER with any new or worsening symptoms/concerns. Referrals: GENESIS ZABALA [Primary Care Provider, DEVULCANIZER OPERATOR] - 1 week Discharge Date/Time: 09/08/24 19:25
== END 2024-09-08 19:25 | disposition home or self-care (01) ==
PROVIDERS: Emergency Provider Internal Medicine; PCP Nurse Practitioner
DX: L03.116 Cellulitis of left lower limb (principal)
CPT/HCPCS: 99283

== ENCOUNTER 2024-10-09 19:59 | Emergency (ER) | payer BC, SELFPAY ==
[2024-10-09] VITALS (13 sets, daily range): BP systolic 172–175; BP diastolic 103–109; PULSE 83–85; TEMP 36.6; O2SAT 94–98; BMI 41.9
--- OUTSIDE RECORDS SUMMARY | 2024-10-09 20:20 | XMS_ITS | Encounter Summary ---
Author Organization [facility] tem Address [facility] [id number] [address] [place] [address] Care Team Providers Care Airbrush Artist Technical Name Role Phone Suzan Doyle APRN-CLEAT THROWER Primary Care Provider [phone] Encounter Details Date Type Department Care Team (Late st Contact Info) Description 05/01/2021 Orders Only [facility] Obstetrics/Gynecology [address] [place] [address] Michelle Clements LPN Infertility male Social History Tobacco Use Types Packs/Day Years Used Date Smoking Tobacco: Never Smokeless Tobacco: Former Chew Alcohol Use Standard Drinks/Week Comments Yes 0 (1 standard drink = 0.6 oz pur e alcohol) occasionally PHQ-2 Answer Date Recorded Total Score 0 01/09/2021 Childcare Answer Date Recorded Do problems getting child ca re make it difficult for you to work or study? No 01/31/2020 Employment Answer Date Recorded Do you need help finding a [facility] career center and/or a training program? No 01/31/2020 Purpose - Life Answer Date Recorded Purpose and direction in life Unknown Sex and Gender Information Value Date Recorded Sex Assigned at Not on file Legal Sex Male 3:51 PM EST Gender Identity Not on file Sexual Orientation Not on file documented as of this encounter Plan of Treatment Not on file documented as of this encounter Goals Goal Patient Goal Type Associated Problems Recent Progress Patient-Stated? Author To return home General Yes Suzan Vu, RN Note: Evaluation of progress towards goal: Plan is to return home with self-care. documented as of this encounter Visit Diagnoses Diagnosis Infertility male Unspecified male infertility documented in this encounter Additional Health Concerns Assessment Noted Time PHQ-9 Depression Total Score: 0 01/10/20 21 10:00 AM EST documented as of this encounter Care Teams Airbrush Artist Technical Relationship Specialty Start Date End Date Suzan Doyle, SELMA-CLEAT THROWER PCP - General Nurse Practitioner 07/26/22 documented as of this encounter
--- OUTSIDE RECORDS SUMMARY | 2024-10-09 20:20 | XMS_ITS | Encounter Summary ---
Author Organization [facility] tem Address [facility] [id number] [address] [place] [address] Care Team Providers Care Structural Manager Name Role Phone YaniraMunaRavinder HAHN-ACCOUNT DEVELOPMENT EXECUTIVE Primary Care Provider [phone] Encounter Details Date Type Department Care Team (Late st Contact Info) Description 07/27/2020 Orders Only [facility] [address] [facility] [place] [phone] Sharita Wall, PA-C [address] [facility] [address] [place] [address] Social History Tobacco Use Types Packs/Day Years Used Date Smoking Tobacco: Never Smokeless Tobacco: Former Chew Alcohol Use Standard Drinks/Week Comments Yes 0 (1 standard drink = 0.6 oz pur e alcohol) occasionally PHQ-2 Answer Date Recorded Total Score 12 07/17/2020 Childcare Answer Date Recorded Do problems getting child ca re make it difficult for you to work or study? No 01/31/2020 Employment Answer Date Recorded Do you need help finding a [employer] career center and/or a training program? No 01/31/2020 Purpose - Life Answer Date Recorded Purpose and direction in life Unknown Sex and Gender Information Value Date Recorded Sex Assigned at Not on file Legal Sex Male 3:51 PM EST Gender Identity Not on file Sexual Orientation Not on file COVID-19 Exposure Response Date Recorded In the last month, have you been in contact with someone who was confirmed or suspected to have Coronavirus / COVID-19? No / Unsure 07/20/2020 8:12 AM EDT documented as of this encounter Plan of Treatment Not on file documented as of this encounter Goals Goal Patient Goal Type Associated Problems Recent Progress Patient-Stated? Author To return home General Yes Suzan Vu, RN Note: Evaluation of progress towards goal: Plan is to return home with self-care. documented as of this encounter Procedures Procedure Name Priority Date/Time Associated Diagnosis Comments CT ABDOMEN W CONT Routine 04/15/2019 COLONOSCOPY Routine 04/28/2018 documented in this encounter Results * CT abdomen with contrast (04/15/2019) Anatomical Region Laterality Modality Body, Abdomen, Body Covera N/A Compu fer Tomography us Sharita Wall PA-C IMG CT ORDERABLES Final R esult * Colonoscopy (04/28/2018) us Sharita Wall PA-C GI PROCEDURE ORDERABLES F inal Result MANUALLY TRANSCRIBED RESULTS documented in this encounter Visit Diagnoses Not on filedocumented in this encounter Additional Health Concerns Infection Onset Date Last Indicated Resolved Time COVID-19 Rule-Out 11/02/2020 11/02/2020 11/02/2020 6:29 PM EDT Assessment Noted Time PHQ-9 Depression Total Score: 12 021 2:00 PM EDT documented as of this encounter Care Teams Structural Manager Relationship Specialty Start Date End Date Suzan Doyle, MANAGER HOSPITAL-ACCOUNT DEVELOPMENT EXECUTIVE PCP - General Nurse Practitioner 07/26/22 documented as of this encounter
--- OUTSIDE RECORDS SUMMARY | 2024-10-09 20:20 | XMS_ITS | Encounter Summary ---
Author Organization [facility] tem Address [facility] [place]-[id number] [address] [place] [address] Care Team Providers Care Continuity Clerk Name Role Phone Suzan Doyle APRN-TOOL AND DIE ASSEMBLER Primary Care Provider [phone] Encounter Details Date Type Department Care Team (Late st Contact Info) Description 02/21/2022 Orders Only [facility] Internal Medicine - Family Medicine [address] [place] [address] External, Scanning Provider Social History Tobacco Use Types Packs/Day Years Used Date Smoking Tobacco: Never Smokeless Tobacco: Former Chew Alcohol Use Standard Drinks/Week Comments Yes 0 (1 standard drink = 0.6 oz pur e alcohol) occasionally PHQ-2 Answer Date Recorded Total Score 1 12/23/2021 Childcare Answer Date Recorded Do problems getting child ca re make it difficult for you to work or study? No 01/31/2020 Employment Answer Date Recorded Do you need help finding a [facility] career center and/or a training program? [...] Procedure Name Priority Date/Time Associated Diagnosis Comments MULTIPLE LABS Routine 02/21/2022 documented in this encounter Results * Multiple labs (02/21/2022) us Scanning Provider External RI IMAGING Final Result MANUALLY TRANSCRIBED RESULTS documented in this encounter Visit Diagnoses Not on filedocumented in this encounter Additional Health Concerns Assessment Noted Time PHQ-9 Depression Total Score: 1 12/24/19 22 3:45 PM EDT documented as of this encounter Care Teams Continuity Clerk Relationship Specialty Start Date End Date Suzan Doyle, SELMA-TOOL AND DIE ASSEMBLER PCP - General Nurse Practitioner 07/26/22 documented as of this encounter
--- OUTSIDE RECORDS SUMMARY | 2024-10-09 20:20 | XMS_ITS | Encounter Summary ---
Author Organization [facility] tem Address [facility] [place]-[id number] [address] 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 No [...] have Coronavirus / COVID-19? No / Unsure 12/23/2021 3:32 PM EDT documented as of this encounter Plan of Treatment Not on file documented as of this encounter Goals Goal Patient Goal Type Associated Problems Recent Progress Patient-Stated? Author To return home General Yes Suzan Vu, RN Note: Evaluation of progress towards goal: Plan is to return home with self-care. documented as of this encounter Visit Diagnoses Diagnosis Hyperuricemia without signs of inflammatory arthritis and tophaceous disease- Primary documented in this encounter Additional Health Concerns Assessment Noted Time PHQ-9 Depression Total Score: 1 12/24/19 22 3:45 PM EDT documented as of this encounter Care Teams Obgyn Specialist Relationship Specialty Start Date End Date Suazn Doyle APRN-LICENSED OPTICIAN PCP - General Nurse Practitioner 07/26/22 documented as of this encounter
--- OUTSIDE RECORDS SUMMARY | 2024-10-09 20:20 | XMS_ITS | Encounter Summary ---
Author Organization [facility] Address [address] [place] [address] Care Team Providers Care Assembler [employer] Spider Name Role Phone Suzan Doyle APPAREL PATTERNMAKER Unavailable Encounter Details Date Type Department Care Team (Late st Contact Info) Description 02/11/2023 Abstract [facility] [address] [place] [address] Andie Sue NP Social History Tobacco Use Types Packs/Day Years Used Date Smoking Tobacco: Former Cigarettes Smokeless Tobacco: Current Chew Tobacco Cessation:Ready to Q uit: Not Asked; Counseling Given: Not Answered Comments:1/2 tin a day Alcohol Use Standard Drinks/Week Comments Not Currently 0 (1 standard drink = 0.6 oz pur e alcohol) Sex and Gender Information Value Date Recorded Sex Assigned at Not on file Legal Sex Male 6:56 PM EDT Gender Identity Not on file Sexual Orientation Not on file documented as of this encounter Plan of Treatment Not on file documented as of this encounter Visit Diagnoses Not on filedocumented in this encounter Care Teams Assembler Caterpillar Spider Relationship Specialty Start Date End Date Suzan Doyle NP [address] [place], [place] [id number] Referring Physician Family Medicine 12/16/22 documented as of this encounter
--- OUTSIDE RECORDS SUMMARY | 2024-10-09 20:20 | XMS_ITS | Clinical Summary ---
Author Organization [facility] Address [address] [place] [address] Care Team Providers Care Cattle Brander Name Role Phone Suzan Doyle REMOTE ENCODING OPERATIONS SUPERVISOR Unavailable Allergies No known active allergies Medications omeprazole (PriLOSEC) [address] capsule Take 40 mg by mouth in the morning. Active Active Problems Problem Noted Date Diagnosed Date Body mass index (BMI) 45.0-49.9, adult 3 History of abdominal hernia 11/19/2022 History of gastrointestinal disease 11/19/2022 Overview (11/19/2022): Pt states it was never confirmed whether it was IBS or UC Right knee pain 11/19/2022 Super obesity 11/19/2022 Contact w and exposure to oth viral communicable diseases 10/31/2020 Small bowel obstruction 08/28/2019 Morbid obesity with BMI of 45.0-49.9, adult 04/23 Recurrent ventral incisional hernia with obstruc tion 05/12/2019 Immunizations Immunization Administration Dates Next Due Influenza, Unspecified 12/20/2021 Influenza, injectable, MDCK, preservative free, quadrivalent 03/07/2020 Influenza, injectable, quadrivalent, preservativ e free 01/09/2021,12/18/2018 MMR 05/03/1999 Family History Relation Name Status Comments Brother 1 brother Father Alive Mother Alive Social History Tobacco Use Types Packs/Day Years [...] on file Sexual Orientation Not on file Last Filed Vital Signs Vital Sign Reading Time Taken Comments Blood Pressure 140/78 04/05/2018 12:00 PM EST Pulse - - Temperature - - Respiratory Rate - - Oxygen Saturation - - Inhaled Oxygen Concentration - - Weight 154 kg (340 lb) 12/16/2022 4:52 PM EDT Height 177.8 cm (5' 10 ) 12/16/2022 4:52 PM EDT Body Mass Index 48.78 12/16/2022 4:52 PM EDT Plan of Treatment Health Maintenance Due Date Last Done Comments Influenza Vaccine (#1) 2024 2, 01/09/2021, 03/07/2020, Additional history exists Insurance [facility] Care Teams Cattle Brander Relationship Specialty Start Date End Date Suzan Doyle NP [address] [place] [phone] Referring Physician Family Medicine 12/16/22
--- OUTSIDE RECORDS SUMMARY | 2024-10-09 20:20 | XMS_ITS | Encounter Summary ---
Author Organization [facility] Address [address] [place] [address] Care Team Providers Care Microsoft Bi Architect Name Role Phone Yanira Suzan PROTECTIVE SIGNAL INSTALLER HELPER Unavailable Encounter Details Date Type Department Care Team (Late st Contact Info) Description 12/12/2022 External Result Encounter [facility] External Department Unsolicited Luke Camarena PROTECTIVE SIGNAL INSTALLER HELPER [address] [place], [place] [id number] Social History Tobacco Use Types Packs/Day Years Used Date Smoking Tobacco: Former Cigarettes Smokeless Tobacco: Current Chew Comments:1/2 tin a day Alcohol Use Standard [...] on file documented as of this encounter Procedures Procedure Name Priority Date/Time Associated Diagnosis Comments MR KNEE RIGHT WO IV CONTRAST 12/12/2022 12:52 PM EDT documented in this encounter Results * MR knee right wo IV contrast (12/12/2022 12:52 PM EDT) Anatomical Region Laterality Modality Lower Extremities, Knee Right Magnetic Resonance 12/12/2022 12:5 2 PM EDT Impressions 01/19/2023 2:09 PM EST Complex tear of the anterior horn of the lateral meniscus. Intact ACL and medial meniscus. Large joint effusion. Impression dictated by: Salomón Arizmendi M.D.12/12/2022 1:06 PM Dictation Location: [place] [address] Transcribed By: [facility] 12/12/22 1306 Dictated By: Salomón Arizmendi DO 12/12/22 1252 Signed By: <Electronically signed by Salomón Arizmendi DO in OV> 12/12/22 1306 Narrative 01/19/2023 2:09 PM [facility] Main [place] [address] [place] [address] MRI Report Signed Patient: Kike Cortes MR#: [id number] 33 : 1985 Acct:[id number] Age/Sex: 37 / M ADM Date: 12/12/22 Loc: MR Room: Type: [facility] Attending Dr: Luke Camarena PROTECTIVE SIGNAL INSTALLER HELPER-C Copies to: Luke Camarena CNP Ordering Provider: Luke Camarena CNP Date of Service: 12/12/22 MR/MR knee RT wo con: M23.91 INTERNAL DERANGEMENT OF RT KNEE MRI of the RIGHT Knee without contrast TECHNIQUE: Multiplanar T1 and T2-weighted imaging of the knee obtained without contrast HISTORY: RIGHT knee injury multiple. Popping sensation. Pain laterally and posteriorly. COMPARISON:Plain film imaging 07/30/22 BONE MARROW: No infiltrative changes. BONE MARROW EDEMA: None FRACTURE: None BONE TUMOR: None BONY ALIGNMENT: Adequate DEGENERATION: No significant spurring or joint space narrowing. JOINT EFFUSION: Large joint effusion identified. MUSCLES: Unremarkable SOFT TISSUES: Subcutaneous edematous changes of the lateral portion of the knee. POPLITEAL CYST: None ANTERIOR CRUCIATE LIGAMENT: Intact POSTERIOR CRUCIATE LIGAMENT: Intact LATERAL COMPARTMENT: LATERAL MENISCUS: Marked heterogeneous signal changes of the anterior horn of the lateral meniscus consistent with complex tear. Adjacent edematous changes of the infrapatellar fat.. LATERAL ARTICULAR CARTILAGE: Intact. No osteochondral defect. No subcuticular bone marrow edema. PROXIMAL TIBIOFIBULAR JOINT: Intact POSTERIOR LATERAL COMPARTMENT: Intact lateral collateral ligament complex. Intact biceps femoris tendon. Intact popliteus tendon. COMMON PERONEAL NERVE: Intact MEDIAL COMPARTMENT: MEDIAL MENISCUS: Intact MEDIAL ARTICULAR SURFACE: No chondromalacia. No subarticular bone marrow edema. POSTERIOR MEDIAL COMPARTMENT: Medial collateral ligament complex intact. The semimembranosus tendon intact. No ramp lesion of the posterior horn of medial meniscus present. PATELLOFEMORAL COMPARTMENT: PATELLOFEMORAL ARTICULAR CARTILAGE: Intact ANTERIOR LIGAMENTS: Patellar ligament and quadriceps tendon are intact. MR/MR knee RT wo con Procedure Note Radiology, Radiologist, - 01/19/2023 [facility] Main [place] [address] [place] [address] MRI Report Signed Patient: Kike Cortes DMR#: [id number] 33 : 1985Acct:[id number] Age/Sex: 37 / MADM Date: 12/12/22 Loc: MR Room:Type: [facility] CLI Attending Dr: Luke Camarena PROTECTIVE SIGNAL INSTALLER HELPER-C Copies to: Luke Camarena JUDICIAL LAW CLERK Ordering Provider: Luke Camarena CNP Date of Service: 12/12/22 MR/MR knee RT wo con: M23.91 INTERNALDERANGEMENT OF RT KNEE MRI of the RIGHT Knee without contrast TECHNIQUE: Multiplanar T1 and T2-weighted imaging of the knee obtainedwithout contrast HISTORY: RIGHT knee injury multiple. Popping sensation. Pain laterallyand posteriorly. COMPARISON:Plain film imaging 07/30/22 BONE MARROW: No infiltrative changes. BONE MARROW EDEMA: None FRACTURE: None BONE TUMOR: None BONY ALIGNMENT: Adequate DEGENERATION: No significant spurring or joint space narrowing. JOINT EFFUSION: Large joint effusion identified. MUSCLES: Unremarkable SOFT TISSUES: Subcutaneous edematous changes of the lateral portion ofthe knee. POPLITEAL CYST: None ANTERIOR CRUCIATE LIGAMENT: Intact POSTERIOR CRUCIATE LIGAMENT: Intact LATERAL COMPARTMENT: LATERAL MENISCUS: Marked heterogeneous signal changes of the anteriorhorn of the lateral meniscus consistent with complex tear. Adjacent edematous changes of theinfrapatellar fat.. LATERAL ARTICULAR CARTILAGE: Intact. No osteochondral defect. Nosubcuticular bone marrow edema. PROXIMAL TIBIOFIBULAR JOINT: Intact POSTERIOR LATERAL COMPARTMENT: Intact lateral collateral ligamentcomplex. Intact biceps femoris tendon. Intact popliteus tendon. COMMON PERONEAL NERVE: Intact MEDIAL COMPARTMENT: MEDIAL MENISCUS: Intact MEDIAL ARTICULAR SURFACE: No chondromalacia. No subarticular bone marrowedema. POSTERIOR MEDIAL COMPARTMENT: Medial collateral ligament complex intact.The semimembranosus tendon intact. No ramp lesion of the posterior horn of medial meniscuspresent. PATELLOFEMORAL COMPARTMENT: PATELLOFEMORAL ARTICULAR CARTILAGE: Intact ANTERIOR LIGAMENTS: Patellar ligament and quadriceps tendon are intact. MR/MR knee RT wo con IMPRESSION: Complex tear of the anterior horn of the lateral meniscus. Intact ACL andmedial meniscus. Large joint effusion. Impression dictated by: Salomón Arizmendi M.D.12/12/2022 1:06 PM Dictation Location: [place] [address] Transcribed By: [facility] 12/12/22 1306 Dictated By: Salomón Arizmendi DO 12/12/22 1252 Signed By: <Electronically signed by Salomón Arizmendi DO in OV> 12/12/22 1306 Luke Camarena NP IMG MRI PROCEDURES Final Result documented in this encounter Visit Diagnoses Not on filedocumented in this encounter Care Teams Microsoft Bi Architect Relationship Specialty Start Date End Date Suzan Doyle NP [address] [place] [address] Referring Physician Family Medicine 12/16/22 documented as of this encounter
--- OUTSIDE RECORDS SUMMARY | 2024-10-09 20:20 | XMS_ITS | Clinical Summary ---
Author Organization [facility] Address [address] [place] [address] Care Team Providers Care Packaging Operator Name Role Phone Unavailable Primary Care Provider Unavailabl e Allergies No known active allergies Medications lubiprostone (AMITIZA) 8 mcg capsule Take 8 mcg by mouth. 04/16/2019 Active sucralfate (CARAFATE) 1 gram tablet TAKE 1 TABLET BY MOUTH TWICE A DAY ON EMPTY STOMACH 04/27/2019 Active Social History Tobacco Use Types Packs/Day Years Used Date Smoking Tobacco: Never Assessed Area Deprivation Index Answer Date Rob rded National Score (1-100), lower number is lower ri sk Not on file 02/03/2020 State Score (1-10), lower number is lower risk N ot on file 02/03/2020 Data from: https://www.neighborhoodatlas.medicine.[facility].edu/. Last address used for calculation Not on file 02/03/2020 Sex and Gender Information Value Date Recorded Sex Assigned at Not on file Legal Sex Male 11:52 AM EDT Gender Identity Not on file Sexual Orientation Not on file Last Filed Vital Signs Vital Sign Reading Time Taken Comments Blood Pressure - - Pulse - - Temperature - - Respiratory Rate - - Oxygen Saturation - - Inhaled Oxygen Concentration - - Weight 148.3 kg (327 lb) 07/08/2019 8:31 AM EDT Height 177.8 cm (5' 10 ) 07/08/2019 8:31 AM EDT Body Mass Index 46.92 07/08/2019 8:31 AM EDT Plan of Treatment Health Maintenance Due Date Last Done Comments Anxiety Screening 2004 Depression Screening 2004 HIV Screening 2004 Hepatitis C Screening 2004 DTaP,Tdap,Td Vaccine (1 - Tdap) 2005 Hepatitis B Vaccine (1 of 3 - 19+ 3-dose series) 04/10 HPV Vaccine (1 - 3-dose SCDM series) 2013 Lipid Screening 2021 Influenza Vaccine (#1) 2024 12/18/[address] [place] [address] [place] [address] CARD PPO OOS
--- OUTSIDE RECORDS SUMMARY | 2024-10-09 20:20 | XMS_ITS | Clinical Summary ---
Author Organization [employer] tem Address [id number] [address] [place] [address] Care Team Providers Care Lens Blocker Name Role Phone Suzan Doyle APRN-PUBLIC HEALTH TRAINING ASSISTANT Primary Care Provider [phone] Allergies No known active allergies Medications naproxen sodium (ALEVE) 220 mg tablet Take 1 tablet (220 mg total) by mouth every 12 (twelve) hours as needed for pain. Active diphenhydrAMINE -acetaminophen (TYLENOL PM) 25-500 mg tabletIndicatio ns:insomnia Take 2 tablets by mouth nightly as needed for sleep Indications: difficulty sleeping. Active melatonin 10 mg tablet,disinteg rating Dissolve 10 mg on tongue nightly as needed. Active omega 8-sas-vaf-fish oil 300-1,000 mg capsule Take 1 capsule by mouth in the morning. Active ascorbic acid, vitamin C, (VITAMIN C) 1000 mg tablet Take 2 tablets (2,000 mg total) by mouth in the morning. Active cholecalciferol , vitamin D3, (D3-2000 ORAL) Take 1 tablet by mouth in the morning. Active magnesium oxide 500 mg tablet Take 1 tablet (500 mg total) by mouth in the morning. 3 Active omeprazole (PriLOSEC) 40 mg capsuleIndicati ons:Gastroesoph ageal reflux disease, unspecified whether esophagitis present TAKE 1 CAPSULE BY MOUTH EVERY DAY 90 capsule 3 3 Active flaxseed oiL oil 1,000 mg by miscellaneous route in the morning. Active Active Problems Problem Noted Date Diagnosed Date Contact w and exposure to oth viral communicable diseases 10/31/2020 SBO (small bowel obstruction) 01/31/2020 Small bowel obstruction 08/28/2019 Recurrent ventral incisional hernia with obstruc tion 05/12/2019 Morbid obesity with BMI of 45.0-49.9, adult 04/23 Immunizations Immunization Administration Dates Next Due COVID-19, mRNA, LNP-S, PF, 100mcg/0.5mL Dose 12/2020,06/05/2020 Influenza, Injectable, Mdck, Preservative Free, Quad 03/07/2020 Influenza, Injectable, quadrivalent (PF) 021,12/18/2018 MMR 05/03/1999 Family History Medical History Relation Name Comments Diabetes Father Cancer Mother Lung cancer Mother Cancer Paternal Grandfather Lung cancer Paternal Grandfather Anesthesia problems Neg Hx Colon cancer Neg Hx Relation Name Status Comments Father Alive Mother Alive Paternal Grandfather Paternal Grandmother Social History Tobacco Use Types Packs/Day Years Used Date Smoking Tobacco: Never Smokeless Tobacco: Former Chew Tobacco Cessation:Counseling Given: Not Answered Alcohol Use Standard Drinks/Week Comments Not Currently 0 (1 standard drink = 0.6 oz pur e alcohol) former PHQ-2 Answer Date Recorded Total Score 1 12/23/2021 Childcare Answer Date Recorded Do problems getting child ca re make it difficult for you to work or study? No 01/31/2020 Employment Answer Date Recorded Do you need help finding a [employer] career center and/or a training program? No 01/31/2020 Hunger Screening Answer Date Recorded Within the past 12 months we worried whether our food would run out before we got money to buy more. Never True 08/25/2022 Food Insecurity - Inability Not on file 04/2022 Purpose - Life Answer Date Recorded Purpose and direction in life Unknown Sex and Gender Information Value Date Recorded Sex Assigned at Not on file Legal Sex Male 3:51 PM EST Gender Identity Not on file Sexual Orientation Not on file Last Filed Vital Signs Vital Sign Reading Time Taken Comments Blood Pressure 162/98 12/31/2022 3:45 PM EST Pulse 73 12/31/2022 3:45 PM EST Temperature 36.7 C (98 F) 12/31/2022 2:58 PM EST Respiratory Rate 14 12/31/2022 3:45 PM EST Oxygen Saturation 92% 12/31/2022 3:45 PM EST Inhaled Oxygen Concentration - - Weight 163.3 kg (360 lb) 02/22/2024 10:29 PM EST Height 177.8 cm (5' 10 ) 02/22/2024 10:29 PM EST Body Mass Index 51.65 02/22/2024 10:29 PM EST Plan of Treatment Health Maintenance Due Date Last Done Comments Adult BMI Follow Up Plan 2004 DTaP,Tdap and Td Vaccines (1 - Tdap) 2005 Depression Screening 12/23/2022 12/23/2021 COVID-19 Vaccine (4 - 2023-2 5 season) 2023 01/23/2021, 07/03/2020, 06/05/2020 Tobacco Screening 07/12/2024 07/13/2023 Influenza Vaccine 10/24/2024 12/20/2021, , 03/07/2020, Additional history exists Adult BMI Screening 02/21/2025 02/22/2024 Goals Goal Patient Goal Type Associated Problems Recent Progress Patient-Stated? Author To return home General Yes Suzan Vu, RN Note: Evaluation of progress towards goal: Plan is to return home with self-care. Medical Devices Implanted Type Area Expressive Art Therapist Device Identifier Shelf Expiration Date Model / Serial / Lot Mesh Pp Paririco Mac [id number] - [id number] Implanted:Qty : 1 on 01/31/2020 by Bennett Sevilla MD at [facility] Mesh N/A: Abdomen [employer] [facility] [id number] 05/23/2024 [id number] / / [id number] [place] [address] Advance Directives * Full Code (Latest Code Status on File) Date Activated Date Inactivated Comments 01/31/2020 10:28 AM 02/02/2020 6:35 PM * Full Code Date Activated Date Inactivated Comments 08/28/2019 9:24 PM 08/31/2019 6:49 PM Care Teams Lens Blocker Relationship Specialty Start Date End Date Suzan Doyle, SPICE CLEANER-PUBLIC HEALTH TRAINING ASSISTANT PCP - General Nurse Practitioner 07/26/22
--- OUTSIDE RECORDS SUMMARY | 2024-10-09 20:20 | XMS_ITS | Encounter Summary ---
Author Organization [facility] Address [address] [place] [address] Care Team Providers Care Overhead Irrigator Name Role Phone Suzan Doyle FORMER HAND Unavailable Encounter Details Date Type Department Care Team (Late st Contact Info) Description 11/19/2022 Abstract [facility] [address] [place] [address] Luke Camarena NP [address] [place] [address] Social History Tobacco Use Types Packs/Day Years [...] on filedocumented in this encounter Care Teams Overhead Irrigator Relationship Specialty Start Date End Date Suzan Doyle NP [address] [place] [address] Referring Physician Family Medicine 12/16/22 documented as of this encounter
--- OUTSIDE RECORDS SUMMARY | 2024-10-09 20:20 | XMS_ITS | Patient Health Record ---
Author Organization [facility] Address [address] [place] [address] Care Team Providers Care Radiation Protection Engineer Name Role Phone Suzan Doyle Primary Care Provider Dr. Candie Ha Unavailable [phone] Allergies Allergen (clinical drug ingredient) Drug/Non Drug Allergy documented on EMR Reaction Allergy Type Onset Date Status oxymetazoline Afrin Allergy Sinus Unknown Drug Allergy Active Results Component Value Reference Range Notes Ultrasound : Legs, bilateral Reviewed date:09/28/2024 08:13:33 AM Interpretation:No DVT, Severe right lower leg edema Performing Lab: Notes/Report: No DVT, Severe right lower leg edema Reason For Referral No Information Medications Medication SIG (Take, Route, Frequency, Duration) Notes Start Date End Date Status Cephalexin 500 MG TAKE 1 CAPSULE BY MO UTH TWICE A DAY FOR 7 DAYS Oral for 7 Days Not-Taking Meloxicam 15 MG TAKE 1 TABLET BY ERIC TH EVERY DAY Oral for 90 Days Active Vitamin D (Ergocalciferol) 1.25 MG (02511 UT) TAKE 1 CAPSULE BY MOUTH ONE TIME PER WEEK Oral for 84 Days Active Amoxicillin-Pot Clavulanate 875-125 MG TAKE 1 TABLET BY MOUTH EVERY 12 HOURS FOR 7 DAYS Oral for 7 Days Not-Taking Paxlovid (300/100) 20 x 150 MG & 10 x 100MG TAKE 2 TABLETS (NIRMATRELVIR) AND TAKE 1 TABLET (RITONAVIR) BY MOUTH TWICE A DAY FOR 5 DAYS Oral for 5 Days Not-Taking Omeprazole 40 MG TAKE 1 CAPSULE BY MO UTH EVERY DAY Oral for 90 Days Active Social History Tobacco Use: Social History Observation Description Date Details (start date - stop date) Never Smoker NA - NA AUDIT-C (Standard) Question Answer Notes Did you have a drink containing alcohol in the p ast year? 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 [place] [address] 09/20/2024 Dvora [facility] Varicose veins of right lower extremity with inflammation I83.11 ; Varicose veins of left lower extremity with inflammation I83.12 and Lymphedema, not elsewhere classified I89.0 [facility] [address] [place] [address] 09/20/2024 Dvora [facility] Varicose veins of right lower extremity with inflammation I83.11 and Varicose veins of left lower extremity with inflammation I83.12 Assessments Encounter Date Diagnosis (ICD Code) Assessment Notes Treatment Notes Treatment Clinical Notes Section Notes 09/20/2024 Varicose veins of right lower extremity with inflammation (ICD-10 - I83.11) The results of this ultrasound were discussed directly with Mr. Cortes, and he was made aware that there is no evidence of deep venous thrombosis in either leg. The plan is to proceed with a venous insufficiency study once the patient has completed their trial of conservative management with prescription grade compression stockings. 09/20/2024 Varicose veins of right lower extremity with inflammation (ICD-10 - I83.11) Mr. Cortes was made aware that he does not have any evidence of deep venous thrombosis. He will require a venous insufficiency study once he has completed his trial of conservative management with compression stockings, leg elevation, exercise, and weight management. He was made aware that his insurance company requires that he wear prescription grade compression stockings for a certain period of time before he is a candidate for surgical intervention. He was also counseled on maintaining/implem enting a weight management and daily exercise plan with daily walking for at least 30 minutes along with periodic leg elevation as part of his conservative treatment plan. The surgical options including endovenous ablation, ambulatory phlebectomy, and chemical ablation were reviewed and discussed with him at length. He was educated that varicose veins are a chronic medical condition and that new veins are guaranteed to develop in the future given his genetic predisposition to develop varicose veins. Preventative measures in order to delay the recurrence of his varicose veins including exercise, maintaining a healthy weight, and wearing prescription grade compression stockings was outlined and reviewed with him at length. The alternatives to surgical intervention including continuing to wear compression and doing nothing at all were also reviewed. The patient was made aware that varicose veins and venous reflux increases the risk of deep venous thrombosis, ulceration, and pulmonary embolism which could lead to . The patient was advised to wear prescription grade compression stockings whenever he travels by plane and for any car rides greater than two hours in order to minimize her risk of developing deep venous thrombosis. All questions were answered, and he states that he will return after wearing the compression stockings and completing his trial with the recommended lifestyle interventions. At his next visit a venous insufficiency study will be performed to assess if he still has venous reflux despite instituting the conservative measures. Pending identification of the source of his venous reflux his surgical plan will be finalized. 09/20/2024 Varicose veins of left lower extremity with inflammation (ICD-10 - I83.12) 09/20/2024 Varicose veins of left lower extremity with inflammation (ICD-10 - I83.12) 09/20/2024 Lymphedema, not elsewhere classified (ICD-10 - I89.0) 09/20/2024 Other Understanding L eg Vein Problems material was printed, Understanding Leg Vein Problems material was printed Plan Of Treatment Next Appt Details Provider Name:Candie Lama, 11/08/2024 03:00:00 PM, [address], [place], [address], Provider Name:Candie Lama, 11/08/2024 03:00:00 PM, [address], [place], [address], Insurance Providers Payer Name Payer Address Payer Phone Subscriber Number Group Number Insured Name Patient Relationship to Insured Coverage Start Date Coverage End Date [employer] [address] [place] [address] [id number] Kike Cortes Self - patient is the insured Medical (General) History Medical History History ICD Code Arthritis Acid Reflux Surgical History Surgery Date(Month/Year) Right knee surgery x 2 Bowel Surgery Hernia repair x 3 Hospitalization History Reason Date(Month/Year) See surgical
--- OUTSIDE RECORDS SUMMARY | 2024-10-09 20:21 | XMS_ITS | CCD ---
Author Organization [facility] Care Team Providers Care Market Research Specialist Name Role Phone WASHINGTON BRANCH Admitting Unavailable WASHINGTON BRANCH Attending Unavailable ANISH, DR ARTEAGA Primary Care Unavailable WASHINGTON BRANCH Consulting Unavailable Leilani Wagner Unavailable LYNNETTE Camarena Attending Provider LYNNETTE Doyle Primary Care Provider [phone] TOM NORTON Attending Unavailable APLINGTOM Attending Unavailable APLTOM ARENAS Attending Unavailable Vj PROGRAM FACILITATOR-FIELD SUPERVISOR SEED PRODUCTION, Suzan Valladares Primary Care Provider VJ, SUZAN Valladares Referring Unavailable VJ, SUZAN Valladares Primary Care Unavailable VJ, SUZAN Valladares Referring Unavailable VJ, SUZAN Valladares Primary Care Unavailable VJ, SUZAN Valladares Referring Unavailable VJ, SUZAN Valladares Primary Care Unavailable VJ, SUZAN Valladares Referring Unavailable VJ, SUZAN Valladares Primary Care Unavailable VJ, SUZAN Valladares Referring Unavailable VJ, SUZAN Valladares Primary Care Unavailable Vj PROGRAM FACILITATOR-FIELD SUPERVISOR SEED PRODUCTIONSuzan Primary Care Provider VjSuzan Primary Care Physician Vj, Suzan Valladares Attending Unavailable Vj, Suzan Valladares Attending Unavailable Vj, Suzan Valladares Attending Unavailable Vj, Suzan L Admitting Unavailable Vj, Suzan Valladares Attending Unavailable Vj, Suzan Valladares Attending Unavailable Vj, Suzan Valladares Attending Unavailable Vj, DETAIL SUPERVISOR Suzan Valladares Admitting Unavailable Vj, DETAIL SUPERVISOR Suzan Valladares Attending Unavailable Vj, DETAIL SUPERVISOR Suzan Valladares Attending Unavailable Jomar Woodard Attending Unavailab Jomar Talbert Admitting Unavailab Lore Mccain Primary Care Unavailable Allergies Allergy Classification Reported Allergen(s) Allergy Type Date of Onset Reaction(s) Facility (2 sources) No Known Medication Allergies; Translations: [No Known Medication Allergies] Propensity to adverse reactions (disorder) [facility] Repository Medications Current Medications Medication Drug Class(es) [...] needed for sleep Indications: difficulty sleeping. Active [id number] 200 actuat albuterol 0.09 mg/actuat metered dose [...] DAY, # 90 tab(s), Refills(s) 3, Pharmacy: [id number], 171.5, cm, 04/11/24 15:30:00 EST, Height/Length Dosing, [...] hours as needed for pain. Active omega 8-fcm-yfo-fish oil 300-1,000 mg capsule (4 sources) take 300-1000 mg by mouth in the morning omega 5-ejl-zlb-fish oil 300-1,000 mg capsule Take 1 capsule by mouth in the morning. Active omeprazole 40 mg delayed release oral capsule (6 sources) Proton Pump Inhibitor Start: 06-17-2024 take 1 capsule by mouth once daily omeprazole 40 mg Cap-DR See Instructions, TAKE 1 CAPSULE BY MOUTH EVERY DAY, # 90 cap(s), Refills(s) 3, Pharmacy: [id number], 171.5, cm, 04/11/24 15:30:00 EST, Height/Length Dosing, [...] Office/Clinic Note HPI Staff Kike is a 39 year old female presenting with er f/u, suture removal left leg ER followup: Hospital: [facility] (did print out report) Visit date: [...] inactivated 01 (more content not included)... Normal [facility] Comment on above: Result Comment: Elec tronically Signed By: Suzan Connelly\.br\Date and Time Signed: 09/02/24 11:41 EDT CBC w/ Auto Diffon 5 Basophils/100 WBC (Bld) 0.4 % Normal 0.0-2.0 [facility] Comment on above: Performed By: #### 2 [id number] #### [facility] Laboratory [address] [place] [address] Basophils/Leukocytes Auto (Bld) [Pure # fraction] 0.0 E9/L Normal 0.0-0.2 [facility] Comment on above: Performed By: #### 2 608266 #### [facility] [address] [place] [address] Eosinophils (Bld) [#/Vol] 0.2 E9/L Normal 0.0-0.5 [facility] Comment on above: Performed By: #### 2 986643 #### [facility] [address] [place] [address] Eosinophils/100 WBC (Bld) 2.6 % Normal 0.0-8.0 [facility] Comment on above: Performed By: #### 2 726326 #### [facility] [address] [place] [address] Erythrocyte distribution width (RBC) [Ratio] 13.8 % Normal 10.9-14.2 [facility] Comment on above: Performed By: #### 2 851788 #### [facility] [address] [place] [address] Hematocrit (Bld) [Volume fraction] 42.3 % Normal 37.7-49.0 [facility] Comment on above: Performed By: #### 2 010561 #### [facility] [address] [place] [address] Hemoglobin (Bld) [Mass/Vol] 14.4 g/dL Normal 13.5-17.5 [facility] Comment on above: Performed By: #### 2 602976 #### [facility] [address] [place] [address] Lymphocytes (Bld) [#/Vol] 1.8 E9/L Normal 1.0-4.0 [facility] Comment on above: Performed By: #### 2 911158 #### [facility] [address] [place] [address] Lymphocytes/100 WBC (Bld) 21.2 % Normal 14.0-50.0 [facility] Comment on above: Performed By: #### 2 094333 #### [facility] [address] [place] [address] MCH (RBC) [Entitic mass] 30.5 pg Normal 27.0-34.0 [facility] Comment on above: Performed By: #### 2 800548 #### [facility] [address] [place] [address] MCHC (RBC) [Mass/Vol] 34.0 g/dL Normal 31.4-36.0 [facility] Comment on above: Performed By: #### 2 863718 #### [facility] [address] [place] [address] MCV (RBC) [Entitic vol] 89.7 fL Normal 80.0-100.0 [facility] Comment on above: Performed By: #### 2 124203 #### [facility] [address] [place] [address] Monocytes (Bld) [#/Vol] 0.6 E9/L Normal 0.2-1.0 [facility] Comment on above: Performed By: #### 2 696671 #### [facility] [address] [place] [address] Neutrophils (Bld) [#/Vol] 5.8 E9/L Normal 2.0-7.5 [facility] Comment on above: Performed By: #### 2 833605 #### [facility] [address] [place] [address] Neutrophils/100 WBC (Bld) 69.0 % Normal 36.0-75.0 [facility] Comment on above: Performed By: #### 2 430234 #### [facility] [address] [place] [address] Platelet mean volume (Bld) [Entitic vol] 10.6 fL Normal 6.4-10.8 [facility] Comment on above: Performed By: #### 2 292253 #### [facility] [address] [place] [address] Platelets (Bld) [#/Vol] 220.0 E9/L Normal 150.0-500.0 [facility] Comment on above: Performed By: #### 2 896038 #### [facility] [address] [place] [address] RBC (Bld) [#/Vol] 4.7 E12/L Normal 4.3-5.9 [facility] Comment on above: Performed By: #### 2 937067 #### [facility] [address] [place] [address] WBC corrected for nucl RBC Auto (Bld) [#/Vol] 8.4 E9/L Normal 4.0-11.0 [facility] Comment on above: Performed By: #### 2 021993 #### [facility] [address] [place] [address] CHEMISTRYOrdered By: SYSTEM SYSTEM on 07-06-2024 25-hydroxyvitamin [...] 07-06-2024 Albumin [Mass/Vol] 4.6 g/dL Normal 3.3-5.0 [facility] Comment on above: Performed By: #### 2 610146 #### [facility] [address] [place] [address] Albumin/Globulin (S) [Mass conc ratio] 1.8 Normal 1.1-2.2 [facility] Comment on above: Performed By: #### 2 685803 #### [facility] [address] [place] [address] ALP [Catalytic activity/Vol] 42 Int._Unit/L Normal 21-98 [facility] Comment on above: Performed By: #### 2 789172 #### [facility] [address] [place] [address] ALT No additional P-5'-P [Catalytic activity/Vol] 66 Int._Unit/L High 6-46 [facility] Comment on above: Performed By: #### 2 277996 #### [facility] [address] [place] [address] Anion gap [Moles/Vol] 12 mmol/L Normal 6-16 [facility] Comment on above: Performed By: #### 2 021999 #### [facility] [address] [place] [address] AST [Catalytic activity/Vol] 38 Int._Unit/L Normal 5-43 [facility] Comment on above: Performed By: #### 2 044694 #### [facility] [address] [place] [address] Bilirubin [Mass/Vol] 0.6 mg/dL Normal 0.0-1.1 [facility] Comment on above: Performed By: #### 2 739642 #### [facility] [address] [place] [address] Calcium [Mass/Vol] 9.4 mg/dL Normal 8.9-11.1 [facility] Comment on above: Performed By: #### 2 288138 #### [facility] [address] [place] [address] Chloride [Moles/Vol] 106 mmol/L Normal 101-111 [facility] Comment on above: Performed By: #### 2 178689 #### [facility] [address] [place] [address] CO2 [Moles/Vol] 25 mmol/L Normal 21-31 [facility] Comment on above: Performed By: #### 2 626222 #### [facility] [address] [place] [address] Creatinine [Mass/Vol] 0.9 mg/dL Normal 0.5-1.3 [facility] Comment on above: Performed By: #### 2 364520 #### [facility] [address] [place] [address] Globulin (S) [Mass/Vol] 2.5 g/dL Normal 1.4-4.0 [facility] Comment on above: Performed By: #### 2 675683 #### [facility] [address] [place] [address] Glucose [Mass/Vol] 116 mg/dL Normal 55-199 [facility] Comment on above: Performed By: #### 2 136237 #### [facility] [address] [place] [address] Potassium [Moles/Vol] 3.7 mmol/L Normal 3.5-5.3 [facility] Comment on above: Performed By: #### 2 729306 #### [facility] [address] [place] [address] Protein [Mass/Vol] 7.1 g/dL Normal 6.0-7.8 [facility] Comment on above: Performed By: #### 2 450996 #### [facility] [address] [place] [address] Sodium [Moles/Vol] 139 mmol/L Normal 135-145 [facility] Comment on above: Performed By: #### 2 123768 #### [facility] [address] [place] [address] Urea nitrogen [Mass/Vol] 20 mg/dL Normal 5-21 [facility] Comment on above: Performed By: #### 2 418014 #### [facility] [address] [place] [address] Urea nitrogen/Creatinine [Mass ratio] 22 No Units High 10-20 [facility] Comment on above: Performed By: #### 2 564516 #### [facility] [address] [place] [address] Family Medicine Office/Clini c Noteon 07-06-2024 Family Medicine Office/Clinic Note Family Medicine Office/Clinic Note [facility] Staff Kike is a 39 [...] Panel Est Preventative 18 to 39 years [address] Lipid Panel Magnesium Level Thyroid Stimulating Hormone Vitamin B12 Level Vitamin D 25 Hydroxy 2. Screening for hyperlipidemia (Z13.220: Encounter for screening for lipoid disorders) lipid panel drawn Ordered: CBC w/ Auto Diff Comprehensive Metabolic Panel Est Preventative 18 to 39 years [address] Lipid Panel Magnesium Level Thyroid Stimulating Hormone [...] Ordered: Est Preventative 18 to 39 years [address] Magnesium Level Vitamin B12 Level Vitamin D 25 Hydroxy 4. Non-smoker (Z78.9: Other specified health status) continue not smoking Ordered: Est Preventative 18 to 39 years [address] Magnesium Level Vitamin B12 Level Vitamin D 25 Hydroxy 5. Adult BMI 60.0-69.9 kg/sq m, (Z68.44: Body mass index [BMI] 60.0-69.9, adult)Body mass index [BMI] 60.0-69.9, adult BMI education Ordered: Est Preventative 18 to 39 years [address] Magnesium Level Vitamin B12 Level Vitamin D 25 Hydroxy 6. Class 3 severe obesity due to excess calories with body mass index (BMI) of 60.0 to 69.9 in adult (E66.813: Obesity, class 3) see above Ordered: Est Preventative 18 to 39 years [address] Magnesium Level Vitamin B12 Level Vitamin D 25 Hydroxy Morbid (severe) obesity due to excess calories (E66.01: Morbid (severe) obesity due to excess calories) see above Orders: fluticasone nasal, See Instructions, 48 Unspecified/Unknown , Refill(s) 1, INSTILL 1 SPRAY IN TO EACH NOSTRIL TWICE A DAY, [facility], 171.5, cm, 12/02/23 15:20:00 EDT, Height/Length Dosing, 172.1, kg, 12/02/23 15:20:00 EDT, Weight Dosing ubrogepant, 100 mg = 1 tab(s), Oral, Once, may repeat dose in 2 hours if needed, # 6 tab(s), Refills(s) 0, Pharmacy: [facility]/pharmacy #[id number], 171.5, cm, 05/29/23 10:06:00 EDT, Height/Length [...] Diabetes mellit (more content not included)... Normal [facility] Comment on above: Result Comment: [...] 07-06-2024 Cholesterol [Mass/Vol] 168 mg/dL Normal 120-200 [facility] Comment on above: Performed By: #### 2 142359 #### [facility] [address] [place] [address] Cholesterol in HDL [Mass/Vol] 31 mg/dL Invalid Interpretation Code [facility] Comment on above: Result Comment: '>= 60 LOW RISK' '<= 40 HIGH RISK' Performed By: #### 2 [id number] #### [facility] [address] [place] [address] Cholesterol in LDL [Mass/Vol] 106 mg/dL Normal <=129 [facility] Comment on above: Performed By: #### 2 124212 #### [facility] [address] [place] [address] Cholesterol in VLDL [Mass/Vol] 61 mg/dL High 7-40 [facility] Comment on above: Performed By: #### 2 686102 #### [facility] [address] [place] [address] Triglyceride [Mass/Vol] 305 mg/dL High <=149 [facility] Comment on above: Performed By: #### 2 555945 #### [facility] [address] [place] [address] Magnesiumon 07-06-2024 Magnesium [Mass/Vol] 1.8 mg/dL Normal 1.3-2.4 [facility] Comment on above: Performed By: #### 2 816548 #### [facility] [address] [place] [address] TSHon 07-06-2024 TSH Qn 1.74 m[IU]/L Normal 0.34-5.60 [facility] Comment on above: Performed By: #### 2 149568 #### [facility] [address] [place] [address] Vit B12on 07-06-2024 Cobalamin (Vitamin B12) [Mass/Vol] 665 pg/mL Normal 50-1500 [facility] Comment on above: Performed By: #### 2 208683 #### [facility] [address] [place] [address] Vitamin D 25 Hydroxyon 07-06 25-hydroxyvitamin D3 [Mass/Vol] 18.3 ng/mL Low 30.0-100.0 [facility] Comment on above: Performed By: #### 5 [id number] #### [facility] [address] [place] [address] eGFRon 07-06-2024 eGFR 112 mL/min/1.73 m2 Normal >=59 [facility] Comment on above: Performed By: #### 1 [id number] #### [facility] [address] [place] [address] Family Medicine Office/Clini c Noteon 04-13-2024 Family [...] E&M of Est. Patient Low 20-29 Min 60196 Remove skin tags 15 or less 93890 2. Leg laceration (S81.819A: Laceration without foreign body, unspecified lower leg, initial encounter) pt had small laceration where a varicose vein ruptured and required 2 sutures Ordered: E&M of Est. Patient Low 20-29 Min 46464 Remove skin tags 15 or less 43045 3. Skin tag (L91.8: Other hypertrophic disorders of the skin) skin tag back of neck removed without difficulty. see procedure note for details. Ordered: E&M of Est. Patient Low 20-29 Min 68401 Remove skin tags 15 or less 01714 4. BMI 60.0-69.9, adult (Z68.44: Body mass [...] BID Flax Seed Oil Flonase 0.05 mg/inh [place], See Instructions magnesium oxide 500 mg oral [...] la virus vaccine 05/03/1999 Recorded Normal [facility] Comment on above: Result Comment: [...] Seed Oil) fluticasone nasal (Flonase 0.05 mg/inh Newton) magnesium oxide (magnesium oxide 500 mg oral [...] 8:40 AM EDT With: Suzan Connelly Where: [place] [id number]- Medications What How Much When Why Instructions Unchanged ascorbic acid (Vitamin C 1000 mg oral tablet) 2 Tablets By Mouth Every day Unchanged cholecalciferol (Vitamin D3 2000 intl units oral Tab) 50 Microgram By Mouth Every day Unchanged cyanocobalamin (Vitamin B12 50 mcg oral tablet) 1 Tablets By Mouth Every day Unchanged flax (Flax Seed Oil) Unchanged fluticasone nasal (Flonase 0.05 mg/ inh [place]) See instructions INSTILL 1 SPRAY IN TO [...] for choosing us for your care. Kaci [facility] Family Medicine Office/Clini c Noteon 12-02-2023 Family [...] u/s order provided. pt will go to [facility] for that. Ordered: amoxicillin-clavula wilma, = 1 tab(s), Oral, q12hr, X 7 day(s), # 14 tab(s), Refills(s) 0, Pharmacy: [facility]/pharmacy #[id number], 171.5, cm, 12/02/23 15:20:00 EDT, Height/Length Dosing, 172.1, kg, 12/02/23 15:20:00 EDT, Weight Dosing benzonatate, 200 mg = 1 cap(s), Oral, TID, X 7 day(s), # 21 cap(s), Refills(s) 0, Pharmacy: [facility]/pharmacy #[id number], 171.5, cm, 12/02/23 15:20:00 EDT, [...] day(s), # 21 tab(s), Refills(s) 0, Pharmacy: [facility]/pharmacy #[id number], 171.5, cm, 12/02/23 15:20:00 EDT, Height/Length Dosing, 172.1, kg, 12/02/23 15:20:00 EDT, Weight Dosing US Lower Extremity Venous Duplex Right 3. Non-smoker (Z78.9: Other specified health status) continue not smoking Ordered: amoxicillin-clavula wilma, = 1 tab(s), Oral, q12hr, X 7 day(s), # 14 tab(s), Refills(s) 0, Pharmacy: [facility]/pharmacy #6177, 171.5, cm, 12/02/23 15:20:00 EDT, Height/Length Dosing, 172.1, kg, 12/02/23 15:20:00 EDT, Weight Dosing benzonatate, 200 mg = 1 cap(s), Oral, TID, X 7 day(s), # 21 cap(s), Refills(s) 0, Pharmacy: [facility]/pharmacy #6177, 171.5, cm, 12/02/23 15:20:00 EDT, Height/Length Dosing, 172.1, kg, 12/02/23 15:20:00 EDT, Weight Dosing fluticasone nasal, 1 spray(s), Nasal, BID, 16 gram, Refill(s) 0, each nostril, [facility]/pharmacy #[id number], 171.5, cm, 12/02/23 15:20:00 EDT, Height/Length Dosing, 172.1, kg, 12/02/23 15:20:00 EDT, Weight Dosing methylPREDNISolone, = 1 packet(s), Oral, As Directed, as directed on package labeling, X 6 day(s), # 21 tab(s), Refills(s) 0, Pharmacy: [facility]/pharmacy #[id number], 171.5, cm, 12/02/23 15:20:00 EDT, Height/Length Dosing, 172.1, kg, 12/02/23 15:20:00 EDT, Weight Dosing Rapid COVID POC 91141 US Lower Extremity Venous Duplex Right 4. BMI 50.0-59.9, adult (Z68.43: Body mass index [BMI] 50.0-59.9, adult) BMI education Ordered: amoxicillin-clavula wilma, = 1 tab(s), Oral, q12hr, X 7 day(s), # 14 tab(s), Refills(s) 0, Pharmacy: [facility]/pharmacy #[id number], 171.5, cm, 12/02/23 15:20:00 EDT, Height/Length Dosing, 172.1, kg, 12/02/23 15:20:00 EDT, Weight Dosing benzonatate, 200 mg = 1 cap(s), Oral, TID, X 7 day(s), # 21 cap(s), Refills(s) 0, Pharmacy: [facility]/pharmacy #[id number], 171.5, cm, 12/02/23 15:20:00 EDT, Height/Length Dosing, 172.1, kg, 12/02/23 15:20:00 EDT, Weight Dosing fluticasone nasal, 1 spray(s), Nasal, BID, 16 gram, Refill(s) 0, each nostril, [id number], 171.5, cm, 12/02/23 15:20:00 EDT, Height/Length Dosing, 172.1, kg, 12/02/23 15:20:00 EDT, Weight Dosing methylPREDNISolone, = 1 packet(s), Oral, A (more content not included)... Normal [facility] Comment on above: Result Comment: [...] day(s), # 14 tab(s), Refills(s) 0, Pharmacy: [facility]/pharmacy #[id number], 171.5, cm, 11/04/23 13:45:00 EDT, Height/Length Dosing, 173, kg, 11/04/23 13:45:00 EDT, Weight Dosing benzonatate, 200 mg = 1 cap(s), Oral, TID, X 7 day(s), # 21 cap(s), Refills(s) 0, Pharmacy: [facility]/pharmacy #[id number], 171.5, cm, 11/04/23 13:45:00 EDT, Height/Length [...] measles/mumps/rubel l (more content not included)... Normal [facility] Comment on above: Result Comment: Elec tronically Signed By: Suzan Connelly\.br\Date and Time Signed: 11/04/23 15:03 EDT Pre-Certification Formon Pre-Certification Form [id number] DC#1.00TIFF [facility] ALT No additional P-5'-P [Ca talytic activity/Vol]on 05-29-2023 ALT [Catalytic activity/Vol] 85 U/L High 0-40 [facility] Comment on above: Performed By: #### 1 744-2, 1919-09 #### [facility] ([id number]) [address], [address] [place] [address] Paula 05-29-2023 AST [Catalytic activity/Vol] 60 U/L High 0-41 [facility] Comment on above: Performed By: #### 1 744-2, 1919-09 #### [facility] ([id number]) [address], [address] [place] [address] GLUCOSE BLOODon 02-06-2022 Glucose [Mass/Vol] 99 mg/dL Normal 74-106 [facility] Comment on above: Performed By: #### L IPID, GLUC #### [facility] [address] [place] [address] [address] Gin Hunter LIPID PROFILEon 02-06-2022 CHOL-HDL RATIO NORM SEE BELOW Normal [facility] Comment on above: Result Comment: 3.3 - 4.4 LOW RISK 4.4 - 7.1 AVERAGE RISK 7.1 - 11.0 MODERATE RISK >11.0 HIGH RISK Performed By: #### L IPID, GLUC #### [facility] [address] [place] [address] [address] Gin Hunter Cholesterol [Mass/Vol] 189 mg/dL Normal <=200 [facility] Comment on above: Performed By: #### L IPID, GLUC #### [facility] [address] [place] [address] [address] Gin Hunter Cholesterol in HDL [Mass/Vol] 34 mg/dL Critically low 40-60 [facility] Comment on above: Performed By: #### L IPID, GLUC #### [facility] [address] [place] [address] [address] Gin Hunter Cholesterol in LDL [Mass/Vol] 102.0 mg/dL Normal [facility] Comment on above: Performed By: #### L IPID, GLUC #### [facility] [address] [place] [address] [address] Gin Hunter Cholesterol.total/Cho lesterol in HDL [Mass ratio] 5.6 {ratio} Normal [facility] Comment on above: Performed By: #### L IPID, GLUC #### [facility] [address] [place] [address] [address] Gin Hunter HDL NORMAL > or = 60 mg/dl - LOW CARDIOVASCULAR RISK <40 mg/dl - HIGH CARDIOVASCULAR RISK Normal [facility] Comment on above: Performed By: #### L IPID, GLUC #### [facility] [address] [address] [address] Gin Hunter LDL CALC NORMAL SEE BELOW Normal [facility] Comment on above: Result Comment: <100 mg/dl OPTIMAL 100 - 129 mg/dl NEAR OR ABOVE OPTIMAL 130 - 159 mg/dl BORDERLINE HIGH 160 - 189 mg/dl HIGH >190 mg/dl VERY HIGH Performed By: #### L IPID, GLUC #### [facility] [address] [place] [address] [address] Gin Hunter Triglyceride [Mass/Vol] 265 mg/dL Critically high <=150 [facility] Comment on above: Performed By: #### L IPID, GLUC #### [facility] [address] [address] [address] Gin Hunter VLDL CALC 53.0 mg/dL Normal [facility] Comment on above: Performed By: #### L IPID, GLUC #### [facility] [address] [address] [address] Gin Hunter [facility] METABOLIC PANE [facility] 08-13-2021 Albumin [Mass/Vol] 4.5 g/dL Normal 3.6-5.1 [facility] Comment on above: Performed By: #### 7 600, 28992 #### [facility] [place] [address] In Home Sales Representative: José Miguel Murillo MD Albumin/Globulin [Mass ratio] 2.0 {ratio} Normal 1.0-2.5 [facility] Comment on above: Performed By: #### 7 600, 26606 #### [facility] [place] [address] In Home Sales Representative: José Miguel Murillo MD ALP [Catalytic activity/Vol] 37 U/L Normal 36-130 [facility] Comment on above: Performed By: #### 7 600, 91990 #### [facility] [place] [address] In Home Sales Representative: José Miguel Murillo MD ALT [Catalytic activity/Vol] 49 U/L High 9-46 [facility] Comment on above: Performed By: #### 7 600, 17402 #### [facility] of [address] [address] In Home Sales Representative: José Miguel Murillo MD AST [Catalytic activity/Vol] 26 U/L Normal 10-40 [facility] Comment on above: Performed By: #### 7 600, 40916 #### [facility] of [address] [address] In Home Sales Representative: José Miguel Murillo MD Bilirubin [Mass/Vol] 0.6 mg/dL Normal 0.2-1.2 [facility] Comment on above: Performed By: #### 7 600, 11030 #### [facility] of [address] [address] In Home Sales Representative: José Miguel Murillo MD BUN/CREATININE RATIO NOT APPLICABLE Normal 6-22 [facility] Comment on above: Performed By: #### 7 600, 88662 #### [facility] of [address] [address] In Home Sales Representative: José Miguel Murillo MD Calcium [Mass/Vol] 9.3 mg/dL Normal 8.6-10.3 [facility] Comment on above: Performed By: #### 7 600, 03266 #### [facility] of [address] [address] In Home Sales Representative: José Miguel Murillo MD Chloride [Moles/Vol] 106 mmol/L Normal 98-110 [facility] Comment on above: Performed By: #### 7 600, 64759 #### [facility] of [address] [address] In Home Sales Representative: José Miguel Murillo MD CO2 [Moles/Vol] 26 mmol/L Normal 20-32 [facility] Comment on above: Performed By: #### 7 600, 42371 #### [facility] of [address] [address] In Home Sales Representative: José Miguel Murillo MD Creatinine [Mass/Vol] 0.97 mg/dL Normal 0.60-1.[address] [facility] Comment on above: Performed By: #### 7 600, 60298 #### [facility] of [address], [address] [place] [address] In Home Sales Representative: José Miguel Murillo MD eGFR NON-AFR. CITIZEN OF [place] 101 mL/min/1.73m2 Normal > OR = 60 [facility] Comment on above: Performed By: #### 7 600, 60003 #### [facility] of [address], [address] [place] [address] In Home Sales Representative: José Miguel Murillo MD GFR/1.73 sq M.predicted among blacks MDRD (S/P/Bld) [Vol rate/Area] 117 mL/min/{1.73_m2} Normal > OR = 60 [facility] Comment on above: Performed By: #### 7 600, 12768 #### [facility] of [address] [address] In Home Sales Representative: José Miguel Murillo MD Globulin (S) [Mass/Vol] 2.3 g/dL Normal 1.9-3.7 [facility] Comment on above: Performed By: #### 7 600, 16192 #### [facility] of [address], [address] [place] [address] In Home Sales Representative: José Miguel Murillo MD Glucose [Mass/Vol] 94 mg/dL Normal 65-99 [facility] Comment on above: Result Comment: Fasting reference interval Performed By: #### 7 600, 82565 #### [facility] of [address] [address] In Home Sales Representative: José Miguel Murillo MD Potassium [Moles/Vol] 4.3 mmol/L Normal 3.5-5.[address] [facility] Comment on above: Performed By: #### 7 600, 88531 #### [facility] of [address] [address] In Home Sales Representative: José Miguel Murillo MD Protein [Mass/Vol] 6.8 g/dL Normal 6.1-8.1 [facility] Comment on above: Performed By: #### 7 600, 30547 #### [facility] of [address] [address] [place] [address] In Home Sales Representative: José Miguel Murillo MD Sodium [Moles/Vol] 140 mmol/L Normal 135-146 [facility] Comment on above: Performed By: #### 7 600, 90699 #### [facility] [address], [address] [place] [address] In Home Sales Representative: José Miguel Murillo MD Urea nitrogen [Mass/Vol] 18 mg/dL Normal 7-25 [facility] Comment on above: Performed By: #### 7 600, 21907 #### [facility] [address], [address] [place] [address] In Home Sales Representative: José Miguel Murillo MD LIPID PANEL, [facility] 06- Cholesterol [Mass/Vol] 166 mg/dL Normal <200 [facility] Comment on above: Order Comment: FASTI NG:YES FASTING: YES Performed By: #### 7 600, 79975 #### [facility] [address], [address] [place] [address] In Home Sales Representative: José Miguel Murillo MD Cholesterol in HDL [Mass/Vol] 30 mg/dL Low > OR = 40 [facility] Comment on above: Order Comment: FASTI NG:YES FASTING: YES Performed By: #### 7 600, 35083 #### [facility] [address], [address] [place] [address] In Home Sales Representative: José Miguel Murillo MD Cholesterol in LDL [...] LDL-C. Tay ELLINGTON et al. EMMY. 2013;310(19): 9437-6913 (http://education.Greenbox.Celmatix/faq/TTF428) Performed By: #### 7 600, 98965 #### [facility] [address], [address] [place] [address] In Home Sales Representative: José Miguel Murillo MD Cholesterol.total/Cho lesterol in HDL [Mass ratio] 5.5 {ratio} High <5.0 [facility] Comment on above: Order Comment: FASTI NG:YES FASTING: YES Performed By: #### 7 600, 96836 #### [facility] [address], [address] [place] [address] In Home Sales Representative: José Miguel Murillo MD NON HDL CHOLESTEROL 136 mg/dL (calc) High <130 [facility] Comment on above: Order Comment: FASTI NG:YES FASTING: YES Result Comment: For patients with diabetes plus 1 major ASCVD risk factor, treating to a non-HDL-C goal of <100 mg/dL (LDL-C of <70 mg/dL) is considered a therapeutic option. Performed By: #### 7 600, 32407 #### [facility] [address], [address] [place] [address] In Home Sales Representative: José Mgiuel Murillo MD Triglyceride [Mass/Vol] 310 mg/dL High <150 [facility] Comment on above: Order Comment: FASTI NG:YES FASTING: YES Result Comment: If a non-fasting specimen was collected, consider repeat triglyceride testing on a fasting specimen if clinically indicated. Jhon et al. J. of Clin. Lipidol. 2015;9:129-169. Performed By: #### 7 600, 87078 #### [facility] [address], [address] [place] [address] In Home Sales Representative: José Miguel Teresa 07-08-2019 CNOV Office Visit (GENSAV) ---- KIKE CORTES ([id number]) 1985 M Date Time Provider Department 5/15/20 9:00 AM CHANDLER BAILEY III During your [...] Laterality Date - COLONOSCOP W/ OR W/O [facility] SPEC 2018 Colonoscopy - REPAIR EPIGASTRIC HERNIA,REDUC [...] reports x 2. Refer to our [facility] [place] [facility] to further discuss separation of [...] Order(s):CONSULT TO GENERAL SURGERY [9011] Order #: [id number]: 1 FUTURE Prescriptions as of 07/08/2019 Sig: LUBIPROSTONE 8 MCG CAPSULE Take 8 mcg by mouth. SUCRALFATE 1 GRAM TABLET TAKE 1 TABLET BY MOUTH TWICE * Problem List As Of Date: 07/08/2019 (None) Encounter Status:Closed by CHANDLER BAILEY III, MD on 07/08/19 [facility] PHYSICAL[facility] 0 HISTORY PHYSICAL HNO ID: [id number] Author: Chandler Bailey III Service: ? Author [...] Laterality Date - COLONOSCOP W/ OR W/O [facility] SPEC 2018 Colonoscopy - REPAIR EPIGASTRIC HERNIA,REDUC [...] reports x 2. Refer to our Main [place] [facility] to further discuss separation of the components for repair and instructed he will need significant diet and exercise program to lose weight has his obesity is risk factor for recurrence. Chandler Bailey III, MD [facility] Vital Signs Date Time Vital Sign Value Performing Clinician Facility 02-22-2024 22:29-0500 Body height 177.8 cm [facility] 4 [facility] 02-22-2024 22:29-0500 Body mass index (BMI) [Ratio] 51.65 kg/m2 [facility] 02-22-2024 22:29-0500 Body weight 163.29 kg [facility] 4 [facility] 07-13-2023 19:37-0400 Body height 179.1 cm [facility] 1 [facility] 07-13-2023 19:37-0400 Body mass index (BMI) [Ratio] 48.1 kg/m2 [facility] 1 [facility] 07-13-2023 19:37-0400 Body weight 154.22 kg P[facility] 1 [facility] 07-08-2023 13:50-0400 Body height 179.1 cm [facility] 1 [facility] 07-08-2023 13:50-0400 Body mass index (BMI) [Ratio] 48.1 kg/m2 [facility] 1 [facility] 07-08-2023 13:50-0400 Body weight 154.22 kg P[facility] 1 [facility] 04-14-2022 14:50-0500 Body height 175.26 cm Leilani Wagner Other [employer] Other 04-14-2022 14:50-0500 Body mass index (BMI) [Ratio] 42.82 kg/m2 Leilani Wagner Other [employer] Other 04-14-2022 14:50-0500 Body temperature 97.8 [degF] Leilani Wagner Other [employer] Other 04-14-2022 14:50-0500 Body weight 131.54 kg Leilani Wagner Other [employer] Other 04-14-2022 14:50-0500 Respiratory rate 18 /min Leilani Wagner Other [employer] Other 04-14-2022 14:50-0500 SaO2% (BldA) [Mass fraction] 96 % Leilani Wagner Other [employer] Other Encounters Encounter Date Encounter Type Care Provider Facility Start: 09-15-2024 ambulatory Jomar Mcmahon acility:[facility] Start: 09-02-2024 End: 09-02-2024 ambulatory DETAIL SUPERVISOR Suzan L Vj Facility: [facility] Start: 07-06-2024 End: 07-06-2024 Lab Drop off Suzan L Vj [facility] Start: 07-06-2024 End: 07-06-2024 ambulatory Suzan L Vj Facility: [facility] Start: 06-13-2024 End: 06-13-2024 ambulatory Szuan L Vj Facility:[facility] Start: 04-11-2024 End: 04-11-2024 ambulatory Suzan L Vj Facility: [facility] Start: 02-22-2024 End: 02-22-2024 Clinical Support [facility] Comment on above: Obstructive sleep ap haja Start: 12-07-2023 End: 12-07-2023 ambulatory SUZAN L VJ [facility] Start: 12-02-2023 End: 12-02-2023 ambulatory Suzan L Vj Facility:[facility] Start: 11-04-2023 End: 11-04-2023 ambulatory Suzan L Vj Facility:[facility] Start: 08-14-2023 End: 08-14-2023 Telephone encounter Suzan Doyle PROGRAM FACILITATOR-FIELD SUPERVISOR [employer] Work Phone: [facility] Comment on above: Sleep Lab (CPAP) Start: 07-13-2023 End: 07-13-2023 Clinical Support [facility] 1 [facility] Comment on above: Obstructive sleep ap haja Start: 07-13-2023 End: 07-15-2023 ambulatory SUZAN L VJ [facility] Start: 07-08-2023 End: 07-08-2023 Clinical Support [facility] 1 [facility] Comment on above: Obstructive sleep ap haja Start: 07-08-2023 End: 07-12-2023 ambulatory SUZAN L VJ [facility] Start: 05-29-2023 End: 05-29-2023 ambulatory SUZAN L VJ [facility] Start: 02-11-2023 End: 02-11-2023 ambulatory TOM B APLING Not Available Start: 01-21-2023 End: 01-21-2023 ambulatory TOM B APLING Not Available Start: 01-07-2023 End: 01-07-2023 ambulatory TOM B APLING Not Available Start: 12-12-2022 End: 12-12-2022 ambulatory WRAPPING CLERK-C Suzan Doyle Work Phone: [facility] Work Phone: Start: 12-12-2022 End: 12-12-2022 Patient encounter procedure WRAPPING CLERK-C Suzan Doyle Work Phone: [facility] [place] Work Phone: Start: 12-11-2022 End: 12-11-2022 ambulatory WRAPPING CLERK-C Suzan Diaz Vj Work Phone: [facility] Work Phone: Start: 12-11-2022 End: 12-11-2022 Patient encounter procedure WRAPPING CLERK-C Suzan Vj Work Phone: [facility] [address] Work Phone: Start: 04-14-2022 End: 04-14-2022 ambulatory Leilani Wagner Other [facility] [employer] Other Start: 04-14-2022 Office outpatient visit 15 minutes Leilani Wagner [facility] Start: 02-10-2022 Encounter for genera l adult medical examination without abnormal findings [facility] [facility] Start: 02-06-2022 End: 02-07-2022 ambulatory [place] [facility] Facility:[facility] Start: 02-06-2022 End: 02-07-2022 Encounter for general adult medical examination without abnormal findings [place] [facility] Facility: Procedures Date Procedure Procedure Detail Performing Clinician Start: 01-23-2023 Surgical procedure Suzan Vj Start: 12-12-2022 MRI of right knee WRAPPING CLERK-C Suzan Vj Work Phone: Start: 12-23-2021 Adult depression scr eening assessment [facility] 1 Start: 03-26-2019 Colonoscopy Suzan Schwa b Comment on above: Dr. Thornton Esophageal hiatus he rnia repair Suzan Vj Large intestine excision Jod i Vj Repair of inguinal hernia Muna di Vj Plan of Treatment Date Care Activity Detail Author Start: 02-21-2025 Adult BMI Screening Adult BMI Screen ing [employer] Start: 07-12-2024 Adult BMI Screening Adult BMI Screen ing [employer] Start: 07-12-2024 [facility] Start: 07-07-2024 Adult BMI Screening Adult BMI Screen ing [employer] Start: 02-05-2024 End: 02-05-2024 Clinical Support 02/05/2024 8:00 PM EST Clinical Support [facility] [address] [place] [address] [facility] Start: 01-01-2024 Adult BMI Screening Adult BMI Screen ing [facility] Start: 01-01-2024 Tobacco Screening Tobacco Screening [facility] Start: 10-25-2023 COVID-19 Vaccine ( season) COVID-19 Vaccine ( season) [facility] Start: 10-25-2023 Influenza vaccination Influenza Vacc ine [facility] Start: 12-23-2022 Depression Screening Depression Scre ening [facility] Start: 10-24-2022 COVID-19 Vaccine ( season) COVID-19 Vaccine ( season) [facility] Start: 2005 DTaP,Tdap and Td Vaccines (1 - Tdap) DTaP,Tdap and Td Vaccines (1 - Tdap) [facility] Start: 2004 Adult BMI Follow Up Plan Adult BMI Follow Up Plan [facility] Immunizations Immunization Date Immunization Notes Care Provider José Antonio carpio 12-20-2021 influenza virus vaccine, unspecified formulation [facility] 1 [facility] 01-23-2021 SARS-CoV-2 (COVID-19 ) mRNA-1273 vaccine Suzan Vj [facility] Comment on above: Result Comment: 2022: TPVALL 01-09-2021 influenza virus vaccine, unspecified formulation Suzan Vj [facility] 01-09-2021 influenza, injectabl e, quadrivalent, preservative free [facility] 1 [facility] 07-03-2020 COVID-19, mRNA, LNP- S, PF, 100mcg/0.5mL Dose [facility] 1 [facility] Comment on above: Result Comment: 2022: TPVALL 06-05-2020 COVID-19, mRNA, LNP- S, PF, 100mcg/0.5mL Dose [facility] 1 [facility] Comment on above: Result Comment: 2022: TPVALL 03-07-2020 influenza virus vaccine, unspecified formulation Suzan Doyle [facility] 03-07-2020 Influenza, injectabl e, Madin Betina Canine Kidney, preservative free, quadrivalent P[facility] 1 [facility] 12-18-2018 influenza virus vaccine, unspecified formulation Suzan Jinab [facility] 12-18-2018 influenza, injectabl e, quadrivalent, preservative free [facility] 1 [facility] 05-03-1999 measles, mumps and rubella virus vaccine [facility] 1 [facility] Payers Date Payer Category Payer Self-pay [id number] 2021 [facility]aged Care - Other ANTH [id number] 2021 Unknown [id number] 1.13.424. [id number] 1986 Unknown [id number] 2.16.840.1.921468.3.579. 2.593 1985 Unknown [id number] 2.16.840.1.556158.3.579. 2.1259 1986 Unknown [id number] 2.16.840.1.954725.3.579. 2.1259 1986 Unknown [id number] 2.16.840.1.372109.3.579. 2.1259 1986 Unknown [id number] 2.16.840.1.196607.3.579. 2.6 1986 Unknown [id number] 2.16.840.1.147208.3.579. 2.1285 1986 Unknown [id number] 2.16.840.1.191139.3.579. 2.1285 1986 Unknown [id number] 2.16.840.1.243928.3.579. 2.1285 1986 Unknown [id number] 2.16.840.1.891743.3.579. 2.1285 1986 Unknown [id number] 2.16.840.1.582307.3.579. 2. 1986 Unknown [id number] 2.16.840.1.230030.3.579. 2.7 1986 Unknown [id number] 2.16.840.1.839118.3.579. 2.7 1986 Unknown [id number] 2.16.840.1.762628.3.579. 2.7 1986 Unknown [id number] 2.16.840.1.044545.3.579. 2. 1986 Unknown [id number] 2.16.840.1.487986.3.579. 2.727 1986 Unknown [id number] 2.16.840.1.371110.3.579. 2.727 1959 Unknown [id number] Unknown [id number] 2.16.840.1.110492.3.579. 2.531 Social History Date Type Detail Facility Unknown if ever smoked [employer] Other Start: 04-05-2020 End: 07-13-2023 Sex Assigned At [facility] [employer] Other Start: 1985 Sex Assigned At Male F [facility] Start: 12-23-2021 End: 07-06-2024 Tobacco smoking status NHIS Never smoked tobacco [facility] Start: 12-23-2021 Tobacco use and exposure Former smokeless tobacco user [facility] History of tobacco use Chews Tobacco [facility] Start: 01-01-2023 End: 07-13-2023 Alcoholic beverage intake Ex-drinker (finding) [facility] Start: 04-05-2020 End: 07-13-2023 History of Social function [facility] Adolescent depressio n screening assessment 1 [facility] Start: 12-22-2022 Alcohol Comment former [facility] Start: 1985 Sex assigned at Not on file P [facility] Start: 04-18-2019 Sex Male (finding) [facility] Sexual Orientation [facility] Medical Equipment Procedure Code Equipment Code Equipment Origin al Text Equipment Identifier Dates Mesh Pp Pariten Mac [id number] - [id number] , [id number] [facility] Start: 01-31-2020 Goals Date Patient Goal Desired [...] schedule sleep study. CPAP Order and use /24 J. Vj Notes in MM TCO2 Please see order in MM for comments Scheduled Cpap @ [facility] on 02/04 My chart confirmation Routed [place] blue in s CPAP Order and use 4/24 J. Vj Notes in MM TCO2 Please see order in MM for comments documented in this encounter [facility] 08-14-2023 Telephone encount er Note 08/12 Order received 08/13 Called PT LM to schedule sleep study. CPAP Order and use 4/24 J. Vj Notes in MM TCO2 Please see order in MM for comments [facility] 08-14-2023 Telephone encount er Note Scheduled Cpap @ [facility] on 02/04 My chart confirmation Routed [place] blue in s CPAP Order and use 4/24 J. Vj Notes in MM TCO2 Please see order in MM for comments [facility] 04-14-2022 Evaluation note Encounter Date Diagnosis [...] as needed for aches pains or fevers [employer] Other Evaluation + Plan note No data available for this section [facility] Evaluation noteNo assessment information available [facility] Work Phone: Evaluation note* Diagnosis Obstructive sleep apnea Obstructive sleep apnea (adult) (pediatric) documented in this [facility] N[facility]ative - Reported* Type Description Date Medical History IBS Medical History ventral hernias Surgical History KNEE SURGERY-RIGHT Surgical History hernia x2 Hospitalization History eye injury [employer] Other Hospital Discharge instructions No data available for this section [facility] InstructionsNot on filedocumented in this encounter [facility] [employer] SystemInstructionsNot on filedocumented in this encounter [facility] No data available for this section [facility] Reason for visit Narrative* Misc (Routine) - Closed Specialty Diagnoses / Procedures Referred By Taqueria t Referred To Contact Diagnoses Obstructive sleep apnea Procedures CPAP Suzan Doyle, PROGRAM FACILITATOR-FIELD SUPERVISOR [employer] Phone: tel: fax: [address] [place] [address] Phone: tel: Referral ID Status Reason Start Date Expiration Date Visits Re quested Visits Authorized [id number] Closed 08/14/2023 08/13/2024 1 1 [facility] [employer] [facility] Summary Purpose Family History No Family [...] section and content) DATE CREATED AUTHOR 07/08/[address] [facility] DATE CREATED AUTHOR AUTHOR'S ORGANIZ ATION 08/13/2021 [facility] DATE CREATED AUTHOR AUTHOR'S ORGANIZ ATION 03/04/2022 [facility] DATE CREATED AUTHOR AUTHOR'S ORGANIZ ATION 02/12/2023 [facility] DATE CREATED AUTHOR AUTHOR'S ORGANIZ ATION 02/24/2024 [facility] DATE CREATED AUTHOR AUTHOR'S ORGANIZ ATION 07/07/2024 [facility] DATE CREATED AUTHOR AUTHOR'S ORGANIZ ATION 07/08/2024 [facility] DATE CREATED AUTHOR AUTHOR'S ORGANIZ ATION 09/05/2024 [facility] DATE CREATED AUTHOR AUTHOR'S ORGANIZ ATION 09/17/2024 [facility] REASON FOR VISIT (unrecogniz ed section and content) Specialty Diagnoses / Procedures Referred By Taqueria orona Referred To Contact Diagnoses Obstructive sleep apnea Procedures Home sleep study Suzan Doyle, PROGRAM FACILITATOR-FIELD SUPERVISOR [employer] [address] [place] [address] [facility] [address] [place] [address] Phone: [phone] Referral ID Status Reason Start Date Expiration Date Visits Re quested Visits Authorized [id number] Closed 06/15/2023 06/14/2024 1 1 Referral ID Status Reason Start Date Expiration Date Visits Re quested Visits Authorized [id number] Closed 07/10/2023 07/09/2024 1 1 Reason Onset Date Comments Sleep Lab 08/14/2023 CPAP Care Teams (unrecognized sec tion and content) Team Status: Active Member Role Status Dates Suzan Doyle NP-[place] Primary Care Provider Active Team Status: Inactive Member Role Status Dates Luke Camarena NP-C Attending Provider Active Suzan Doyle NP-[place] Primary Care Provider Active Team Status: Inactive Member Role Status Dates Suzan Doyle WRAPPING CLERK-C Primary Care Provider Active Luke Camarena NP-[place] Attending Provider Active Market Research Specialist Relationship Specialty Start Date End Date Suzan Doyle, PROGRAM FACILITATOR-FIELD SUPERVISOR [employer] PCP - General Nurse Practitioner 07/26/22 Market Research Specialist Relationship Specialty Start Date End Date Suzan Doyle PROGRAM FACILITATOR-FIELD SUPERVISOR [employer] [address] [place] [id number] PCP - General Nurse Practitioner 07/26/22 Market Research Specialist Relationship Specialty Start Date End Date Suzan Doyle, PROGRAM FACILITATOR-FIELD SUPERVISOR [employer] [address] [place] [id number] PCP - General Nurse Practitioner 07/26/22 Goals [...] BE BASED ON THE PRIMARY CLINICAL RECORDS. [employer] provides no warranty or guarantee of the accuracy or completeness of information in this document.
--- NOTE | 2024-10-09 20:24 | ECG_ITS ---
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 Measurements Intervals [place] Rate: 81 P: 51 FL: 144 QRS: 82 QRSD: 82 T: 44 QT: 344 QTc: 382 Interpretive Statements 1100 Sinus rhythm 9110 normal ECG No previous ECG available for comparison Electronically Signed On 10-10-2024 17:46:32 EDT by LYLA CASTANON M.D.
--- NOTE | 2024-10-09 20:25 | ED_ITS ---
HPI - Psych General Chief Complaint: Psychiatric Symptoms Stated Complaint: SUICIDAL Time Seen by Provider: 10/09/24 20:15 Source: Reports patient Mode of arrival: ambulance Limitations: Reports no limitations History of Present Illness HPI Narrative: This 39-year-old male is brought to emergency department from home. EMS was called by the patient's after she came home and found a suicide note. 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 His was away with her family and a family vacation in [place]. He states that he has been anxious and depressed recently. He states he felt suicidal after losing his job last Thursday and wrote the note at that time. He was not aware that he had not thrown the note away. He denies that he has any specific suicidal plan. He states that his depression and anxiety stems from marital problems that he has been having since the beginning of the year as well as several family members with medical problems. He does speak with a counselor and has an appointment with his counselor on Thursday. He intended to take his suicide note to his counseling appointment on Thursday. He states [facility]. He does not drink or smoke but 2 Fridays ago took a gummy. Related Data Previous Rx's ?Medication ?Instructions ?Recorded cephalexin 500 mg capsule 500 mg PO BID 7 days #14 cap s 09/08/24 Allergies Allergy/AdvReac Type Severity Reaction Status Date / Time oxymetazoline (From Afrin Allergy Severe Swelling Verified 04/02/24 18:30 (oxymetazoline)) of Lip/Tongue/Throat Review of Systems ROS Status of ROS 10 or more systems reviewed and unremark able except as noted in history and below PFSH PFSH Social History Little interest or pleasure in doing things: not at all Feeling down, depressed, or hopeless: not at all Exam Narrative Exam Narrative: Vital signs and Nursing Notes reviewed: Patient is afebrile with normal pulse, blood pressure is elevated 175/105, he is not hypoxic with pulse ox of 97% on room air General: Awake, alert, oriented, no acute distress, lying comfortably on the stretcher HEENT: Normocephalic atraumatic, mucous membranes are moist and pink, eyes are clear, normal conjunctiva, vision is grossly intact, posterior pharynx is normal in appearance. Chest: Lungs are clear to auscultation with good air entry, there is no wheezing rhonchi or rales appreciated no accessory muscle use, patient is speaking in complete sentences-no chest wall tenderness to palpation CVS: Regular rate and rhythm S1-S2, no murmurs rubs or gallops, pulses are brisk and equal bilaterally Extremities: Moving all extremities, no lower extremity tenderness or swelling noted, negative Homans' sign, pulses are brisk and equal bilaterally Skin: Normal in appearance without rash,pallor, petechiae or purpura Neuro: No focal deficits Psych: Admits to depression and anxiety regarding marital issues, admits to writing a suicide note last Thursday after losing his job but currently denies any suicidal ideation, he is calm, cooperative and does not appear to be under the influence of any mood altering substances in the emergency department. Constitutional Vital Signs, click to edit/add: Last Vital Signs Temp 97.9 F 10/09/24 20:06 Pulse 85 10/09/24 20:06 Resp 18 10/09/24 20:06 BP 175/105 H 10/09/24 20:06 Pulse Ox 97 10/09/24 20:06 O2 Del Method Room Air 10/09/24 20:06 Course Vital Signs Vital signs: Vital Signs Temperature 97.9 F 10/09/24 20:06 Pulse Rate 85 10/09/24 20:06 Respiratory Rate 18 10/09/24 20:06 Blood Pressure 175/105 H 10/09/24 20:06 Pulse Oximetry 97 10/09/24 20:06 Oxygen Delivery Method Room Air 10/09/24 20:06 Temperature 97.9 F 10/09/24 20:06 Pulse Rate 85 10/09/24 20:06 Respiratory Rate 18 10/09/24 20:06 Blood Pressure 175/105 H 10/09/24 20:06 Pulse Oximetry 97 10/09/24 20:06 Oxygen Delivery Method Room Air 10/09/24 20:06 MDM - Psych MDM Narrative Medical decision making narrative: This 39-year-old male is brought to the emergency department by EMS after his came home from a vacation with her family in [place] and found a suicide note that he had written last Thursday. The patient states he lost his job last Thursday. He was very depressed at that time and broke the note. He states he forgot to throw it away before his got home. He states he was in [place] tonight when she got home and after he got home from [place] EMS was waiting for him. He admits that he is anxious and depressed. He states that in addition to recently losing his job he has health issues and he and his have been having marital issues since earlier this year. He admits to occasionally using marijuana. He denies any alcohol use. He appears calm, cooperative and the [facility]OPE line was called. He was evaluated by the [facility] counselor with recommendation for hospitalization. He was pink slipped by [facility] and accepted for transfer to [address] Machado. Medical clearance EKG and labs were ordered. EKG is a sinus rhythm 80 bpm. He has a normal white count and stable hemoglobin. Electrolytes are normal. Alcohol is negative. Aspirin and Tylenol levels are normal. Drug tox is positive for marijuana only. Lab Data Labs: Lab Results 10/09/24 10/09/24 Range/Units 20:00 21:30 WBC 8.7 (4.0-11.0) 10^3/uL RBC 4.61 L (4.70-6.10) 10^6/uL Hgb 13.1 L (14.0-18.0) g/dL Hct 40.9 L (42.0-54.0) % MCV 88.7 (80.0-94.0) fL MCH 28.4 (25.9-34.0) pg MCHC 32.0 (29.9-35.2) g/dL RDW 13.2 (11.0-15.0) % Plt Count 255 (150-450) 10^3/uL MPV 11.5 (9.5-13.5) fL Neut % (Auto) 57.2 (43.0-75.0) % Lymph % (Auto) 29.8 (20.5-60.0) % [place] % (Auto) 9.8 (1.7-12.0) % Eos % (Auto) 2.4 (0.9-7.0) % Baso % (Auto) 0.5 (0.2-2.0) % Neut # (Auto) 5.0 (1.4-6.5) 10^3/uL Lymph # (Auto) 2.6 (1.2-3.8) 10^3/uL [place] # (Auto) 0.9 H (0.3-0.8) 10^3/uL Eos # (Auto) 0.2 (0.0-0.7) 10^3/uL Baso # (Auto) 0.0 (0.0-0.1) 10^3/uL Abs Immat Gran (auto) 0.03 (0.00-0.03) 10^3/uL Imm/Tot Granulo (auto) 0.3 (0.0-0.5) % Sodium 144 (136-145) mmol/L Potassium 4.1 (3.5-5.1) mmol/L Chloride 109 H (98-107) mmol/L Carbon Dioxide 28.6 (21.0-32.0) mmol/L Anion Gap 10.5 BUN 21.0 H (7.0-18.0) mg/dL Creatinine 1.00 (0.70-1.30) mg/dL Est GFR ( Amer) >60 (>=60 mL/min/1.73m^2) Est GFR (Non-Af Amer) >60 (>=60 mL/min/1.73m^2) BUN/Creatinine Ratio 21.0 Glucose 104 (74-106) mg/dL Calcium 8.3 L (8.5-10.1) mg/dL Total Bilirubin 0.4 (0.2-1.0) mg/dL AST 24 (15-37) U/L ALT 67 H (16-63) U/L Alkaline Phosphatase 51 (46-116) U/L Total Protein 7.3 (6.4-8.2) g/dL Albumin 4.0 (3.4-5.0) g/dL Globulin 3.3 g/dL Albumin/Globulin Ratio 1.2 Salicylates <2.8 (<=19.9) mg/dL Urine Opiates Screen Negative (NEGATIVE) Ur Buprenorphine Scrn Negative (NEGATIVE) Ur Oxycodone Screen Negative (NEGATIVE) Urine Methadone Screen Negative (NEGATIVE) Acetaminophen <2.0 L (10.0-30.0) ug/mL Ur Barbiturates Screen Negative (NEGATIVE) U Tricyclic Antidepress Negative (NEGATIVE) Ur Phencyclidine Scrn Negative (NEGATIVE) Ur Amphetamines Screen Negative (NEGATIVE) U Methamphetamines Scrn Negative (NEGATIVE) U Benzodiazepines Scrn Negative (NEGATIVE) Urine Cocaine Screen Negative (NEGATIVE) U Cannabinoids Screen Positive A (NEGATIVE) Ethanol Quant <3 mg/dL ECG Data Attestation: I personally reviewed and interpreted this ECG as follows: (Sinus rhythm 81 bpm, normal axis, normal intervals, no acute ST segment elevation or T wave inversion) Discharge Plan Discharge Chief Complaint: Psychiatric Symptoms Clinical Impression: Suicidal ideation Patient Disposition: [facility] Time of Disposition Decision: 22:22
[2024-10-09 20:40] LABS: Cannabinoid Screen Urine POSITIVE (NEGATIVE); Methamphetamines Screen Urine NEGATIVE (NEGATIVE); Tricyclic Antidepressant Urine NEGATIVE (NEGATIVE)
[2024-10-09 21:46] LABS: Hematocrit 40.9 % (42.0-54.0); Hemoglobin 13.1 g/dL (14.0-18.0); Immature Granulocytes Abs Auto 0.03 10^3/uL (0.00-0.03); Immature Granulocytes Pct Auto 0.3 % (0.0-0.5); Lymphocytes Absolute Auto 2.6 10^3/uL (1.2-3.8); Mean Corpuscular HGB Conc 32.0 g/dL (29.9-35.2); Mean Corpuscular Hemoglobin 28.4 pg (25.9-34.0); Mean Corpuscular Volume 88.7 fL (80.0-94.0); Platelet Count 255 10^3/uL (150-450); Red Blood Count 4.61 10^6/uL (4.70-6.10); White Blood Count 8.7 10^3/uL (4.0-11.0)
[2024-10-09 22:03] LABS: Alanine Aminotransferase 67 U/L (16-63); Albumin Globulin Ratio 1.2; Albumin Level 4.0 g/dL (3.4-5.0); Alkaline Phosphatase 51 U/L (46-116); Anion Gap 10.5; Aspartate Amino Transferase 24 U/L (15-37); Blood Urea Nitrogen 21.0 mg/dL (7.0-18.0); Calcium 8.3 mg/dL (8.5-10.1); Carbon Dioxide 28.6 mmol/L (21.0-32.0); Chloride 109 mmol/L (98-107); Estimated GFR (African America >60 (>=60 mL/min/1.73m^2); Estimated GFR (Non-African Ame >60 (>=60 mL/min/1.73m^2); Globulin 3.3 g/dL; Glucose 104 mg/dL (74-106); Potassium 4.1 mmol/L (3.5-5.1); Sodium 144 mmol/L (136-145); Total Protein 7.3 g/dL (6.4-8.2)
[2024-10-09 22:13] LABS: Acetaminophen <2.0 ug/mL (10.0-30.0); Salicylate <2.8 mg/dL (<=19.9)
[2024-10-10 01:50] VITALS: O2SAT 90
[2024-10-10 01:52] VITALS: BP 129/61; O2SAT 96
== END 2024-10-10 02:05 | disposition short-term general hospital (02) ==
PROVIDERS: Emergency Provider Emergency Medicine; PCP Nurse Practitioner
DX: R45.851 Suicidal ideations (principal); F41.9 Anxiety disorder, unspecified; F32.A Depression, unspecified
CPT/HCPCS: 36415; 80053; 80179; 80307; 80320; 80329; 85025; 93005; 99285